=== PATIENT | female | born 1945 | race Caucasian/White ===

== ENCOUNTER → 2016-04-15 | Outpatient (CLI) | payer OTHER ==
[~2016-04-15] MED LIST: ASPCH81X PO; BUPR-79 PO; CETI10TA84 PO; CITA40TA12 PO; DOCU100C31 PO; FURO40TA3 PO; HYDR50CA2 PO; IBUP-1449 PO; INSU1INJ2 SQ; INSUINJ12 SC; LPT/40 PO; METF1000 PO; PANT1TAB48 PO; POTA-327 PO; ZNTT/150 PO
[2016-04-15 12:24] LABS: BASO % 0.6 %; BASO ABS # 0.04 K/uL (0-0.2); COMPLETE YES; HEMATOCRIT 40.7 % (37-47); IG% 0.3 %; LYMPH % 38.4 %; LYMPH ABS # 2.75 K/uL (1.2-3.4); MEAN CELL VOLUME 86.4 fL (80-100); MEAN CORPUSCULAR HEMOGLOBIN 28.9 pg (25-34); MEAN CORPUSCULAR HGB CONC 33.4 g/dl (32-36); MEAN PLATELET VOLUME 9.7 fL (7.4-10.4); MONO % 4.6 %; NEUT % 54.1 %; PLATELET COUNT 271 K/uL (130-400); RED BLOOD COUNT 4.71 M/uL (4.2-5.4); WHITE BLOOD COUNT 7.16 K/uL (4.8-10.8)
[2016-04-15 12:40] LABS: ALT/SGPT 28 U/L (12-78); AST/SGOT 16 U/L (15-37); BLOOD UREA NITROGEN 16 mg/dl (7-18); BUN/CREATININE RATIO 17.5 (10-20); CALCIUM 9.8 mg/dl (8.5-10.1); CARBON DIOXIDE 27 mmol/L (21-32); CHLORIDE 105 mmol/L (98-107); CHOLESTEROL 131 mg/dl (0-200); CREATININE 0.92 mg/dl (0.60-1.20); GLUCOSE 108 mg/dl (70-99); POTASSIUM 4.1 mmol/L (3.5-5.1); SODIUM 141 mmol/L (136-145); TRIGLYCERIDES 166 mg/dl (0-150); VERY LOW DENSITY LIPOPROT CALC 33 mg/dl
[2016-04-15 12:42] LABS: ALB/GLOB RATIO 1.1 (0.9-2); ALKALINE PHOSPHATASE 70 U/L (45-117); CHOLESTEROL/HDL RATIO 2.7; HDL CHOLESTEROL 48 mg/dl; LDL CHOLESTEROL CALCULATED 50 mg/dl
[2016-04-15 13:04] LABS: RATIO 10.3 mcg/mg (0-30.0)
[2016-04-15 13:11] LABS: ESTIMATED AVERAGE GLUCOSE 140 mg/dl; HA1C FLAG Normal (Normal)
== END | disposition home or self-care (01) ==
LOC: C.LABBFT 10:24
PROVIDERS: ATTEND Physician Assistant
DX: Z51.81 Encounter for therapeutic drug level monitoring (principal); Z79.899 Other long term (current) drug therapy; E11.39 Type 2 diabetes mellitus with other diabetic ophthalmic complication; E11.49 Type 2 diabetes mellitus with other diabetic neurological complication

== ENCOUNTER → 2016-08-19 | Outpatient (CLI) | payer OTHER ==
[2016-08-19 12:42] LABS: BLOOD UREA NITROGEN 21 mg/dl (7-18); BUN/CREATININE RATIO 22.2 (10-20); CARBON DIOXIDE 26 mmol/L (21-32); CHLORIDE 109 mmol/L (98-107); CREATININE 0.95 mg/dl (0.60-1.20); GLUCOSE 144 mg/dl (70-99); POTASSIUM 3.9 mmol/L (3.5-5.1); SODIUM 144 mmol/L (136-145)
[2016-08-19 12:43] LABS: URINE APPEARANCE CLEAR (CLEAR); URINE BILIRUBIN NEG (NEG); URINE COLOR YELLOW; URINE EPITHELIAL CELL AUTO >30 /lpf (0-5); URINE NITRITE NEG (NEG); UROBILINOGEN NEG (NEG); ZZUR CULT IF INDIC CLEAN CATCH NO
[2016-08-19 12:43] LABS: CALCIUM 9.5 mg/dl (8.5-10.1)
[2016-08-19 12:52] LABS: MANUAL MICROSCOPIC REQUIRED? NO; REVIEW REQ? NO
[2016-08-19 13:13] LABS: ESTIMATED AVERAGE GLUCOSE 148 mg/dl; HA1C FLAG Normal (Normal)
== END ==
LOC: C.LABBFT 10:07
PROVIDERS: ATTEND Nurse Practitioner
DX: R30.0 Dysuria (principal); E11.49 Type 2 diabetes mellitus with other diabetic neurological complication

== ENCOUNTER → 2016-12-24 | Outpatient (CLI) | payer OTHER ==
[2016-12-24 12:19] LABS: BASO % 0.9 %; BASO ABS # 0.07 K/uL (0-0.2); COMPLETE YES; EOS % 1.6 %; HEMATOCRIT 41.5 % (37-47); IG% 0.1 %; LYMPH % 30.8 %; LYMPH ABS # 2.27 K/uL (1.2-3.4); MEAN CELL VOLUME 86.1 fL (80-100); MEAN CORPUSCULAR HEMOGLOBIN 28.6 pg (25-34); MEAN CORPUSCULAR HGB CONC 33.3 g/dl (32-36); MONO % 5.8 %; NEUT % 60.8 %; PLATELET COUNT 251 K/uL (130-400); RED BLOOD COUNT 4.82 M/uL (4.2-5.4); WHITE BLOOD COUNT 7.37 K/uL (4.8-10.8)
[2016-12-24 12:36] LABS: ALT/SGPT 22 U/L (12-78); AST/SGOT 17 U/L (15-37); BLOOD UREA NITROGEN 15 mg/dl (7-18); BUN/CREATININE RATIO 16.2 (10-20); CALCIUM 9.8 mg/dl (8.5-10.1); CARBON DIOXIDE 28 mmol/L (21-32); CHLORIDE 108 mmol/L (98-107); CHOLESTEROL 134 mg/dl (0-200); CREATININE 0.92 mg/dl (0.60-1.20); GLUCOSE 153 mg/dl (70-99); POTASSIUM 4.3 mmol/L (3.5-5.1); SODIUM 140 mmol/L (136-145); TRIGLYCERIDES 166 mg/dl (0-150); VERY LOW DENSITY LIPOPROT CALC 33 mg/dl
[2016-12-24 12:46] LABS: ALKALINE PHOSPHATASE 75 U/L (45-117); CHOLESTEROL/HDL RATIO 2.9; HDL CHOLESTEROL 46 mg/dl; LDL CHOLESTEROL CALCULATED 55 mg/dl
[2016-12-24 12:49] LABS: ESTIMATED AVERAGE GLUCOSE 131 mg/dl; HA1C FLAG Normal (Normal)
== END | disposition home or self-care (01) ==
LOC: C.LABBFT 08:59
PROVIDERS: ATTEND Nurse Practitioner
DX: Z51.81 Encounter for therapeutic drug level monitoring (principal); Z79.899 Other long term (current) drug therapy; Z11.59 Encounter for screening for other viral diseases; E11.49 Type 2 diabetes mellitus with other diabetic neurological complication; R30.0 Dysuria

== ENCOUNTER → 2017-02-20 | Outpatient (CLI) | payer OTHER ==
[~2017-02-20] MED LIST changes: +PANT1TAB3 PO; -PANT1TAB48 PO
--- NOTE | 2017-02-20 12:55 | MAMMOGRAPHY REPORT ---
BILATERAL DIGITAL SCREENING MAMMOGRAM WITH CAD: 02/20/2017 CLINICAL HISTORY: Routine screening. Patient has no complaints. TECHNIQUE: Current study was also evaluated with a Computer Aided Detection (CAD) system. Bilateral CC and MLO views were obtained. COMPARISON: Comparison is made to exams dated: 01/22/2016 mammogram, 01/18/2015 mammogram, 4 mammogram, 12/27/2012 mammogram, 06/29/2012 mammogram, and 12/30/2011 mammogram - [facility]. BREAST COMPOSITION: There are scattered areas of fibroglandular density in both breasts. FINDINGS: No suspicious masses, calcifications, or areas of architectural distortion are noted in ei ther breast. There has been no significant interval change compared to prior exams. Bilateral benign -appearing calcifications are not significantly changed. IMPRESSION: ACR BI-RADS CATEGORY 2: BENIGN There is no mammographic evidence of malignancy. A 1 year screening mammogram is recommended. The pa tient will receive written notification of the results. Approximately 10% of breast cancers are not detected with mammography. A negative mammographic report should not delay biopsy if a clinically suggestive mass is present. Arely Moore M.D. /:02/20/2017 12:27:44 Citizenship Teacher: Mireya CARBALLO(Eddie)(Jani)(BD), [facility] letter sent: Normal 1/2 BI-RADS Code: ACR BI-RADS Category 2: Benign
== END | disposition home or self-care (01) ==
LOC: C.MAMM 10:28
PROVIDERS: ATTEND Nurse Practitioner
DX: Z12.31 Encounter for screening mammogram for malignant neoplasm of breast (principal)

== ENCOUNTER → 2017-04-06 | Outpatient (CLI) | payer OTHER ==
[2017-04-06 12:27] LABS: HEMOGLOBIN A1C 6.7 % (4.5-5.6)
[2017-04-06 12:44] LABS: ALBUMIN 3.5 gm/dl (3.4-5.0); ALT/SGPT 22 U/L (12-78); BLOOD UREA NITROGEN 17 mg/dl (7-18); CALCIUM 9.6 mg/dl (8.5-10.1); CARBON DIOXIDE 26 mmol/L (21-32); CHOLESTEROL 172 mg/dl (0-200); CREATININE 1.08 mg/dl (0.60-1.20); GLUCOSE 162 mg/dl (70-99); POTASSIUM 4.2 mmol/L (3.5-5.1); SODIUM 138 mmol/L (136-145)
[2017-04-06 12:46] LABS: ALKALINE PHOSPHATASE 78 U/L (45-117); AST/SGOT 14 U/L (15-37); LDL CHOLESTEROL CALCULATED 87 mg/dl; TOTAL PROTEIN 7.2 gm/dl (6.4-8.2)
== END | disposition home or self-care (01) ==
LOC: C.LABBFT 09:35
PROVIDERS: ATTEND Nurse Practitioner
DX: Z00.00 Encounter for general adult medical examination without abnormal findings (principal); E55.9 Vitamin D deficiency, unspecified; E11.49 Type 2 diabetes mellitus with other diabetic neurological complication

== ENCOUNTER 2018-07-28 15:40 | Inpatient (IN) ==
[2018-07-28] MEDS ORDERED: ONDANSETRON INJ 2 MG/ML 2 ML VIAL IV STA (15:54)
[2018-07-28] MEDS ORDERED: SODIUM CHLORIDE 0.9% 1000ML 1,000 ML IV SCH (16:00)
[2018-07-28 16:13] LABS: Appearance Urine Cloudy (Clear); Bacteria Urine Automated 2+ (Negative); Bilirubin Urine Negative (Negative); Blood Urine Negative (Negative); Color Urine Yellow; Glucose Urine UA Negative (Negative); Ketones Urine Trace (Negative); Leukocyte Esterase Urine 2+ (Negative); Nitrite Urine Positive (Negative); Protein Urine Negative (Negative); RBC Urine Automated 0-4 /hpf (0-4); Specific Gravity Urine 1.015 (1.000-1.030); Urobilinogen Urine Negative (Negative); pH Urine >= 9.0 (4.5-7.5)
[2018-07-28 16:21] LABS: Basophils # (auto) 0.03 K/uL (0-0.2); Basophils % (auto) 0.4 %; Eosinophils # (auto) 0.18 K/uL (0-0.5); Eosinophils % (auto) 2.4 %; Hematocrit (blood only) 39.5 % (37-47); Hemoglobin 13.7 g/dL (12.0-16.0); Immature Granulocytes # (auto) 0.01 K/uL (0.00-0.02); Immature Granulocytes % (auto) 0.1 %; Lymphocytes % (auto) 27.9 %; Mean Corpuscular Hgb Conc 34.7 g/dL (32-36); Mean Corpuscular Volume 86.1 fL (80-100); Monocytes # (auto) 0.36 K/uL (0.11-0.59); Monocytes % (auto) 4.8 %; Neutrophils # (auto) 4.84 K/uL (1.4-6.5); Neutrophils % (auto) 64.4 %; Platelet Count 265 K/uL (130-400); RDW Coefficient of Variation 14.4 % (11.5-14.5); Red Blood Count 4.59 M/uL (4.2-5.4); White Blood Count 7.52 K/uL (4.8-10.8)
--- NOTE | 2018-07-28 16:25 | Emergency Department Note ---
Entered by Nuyrs Mary acting as a scribe for Juan Guillaume DO History of Present Illness General Chief complaint: Urinary Symptoms Source: patient History of Present Illness Onset (ago): day(s) (several ) Location: abdomen (right-sided) Pain Consistency: + other (persistent ) Associated symptoms: + fever/chills, + nausea/vomiting (positive nausea; negative vomiting) and + other (positive leg redness) Treatments prior to arrival: none The patient is a 73 year old female who presents to the Emergency Room with complaints of persistent right-sided abdominal pain that began several days prior to arrival. The patient states that she was supposed to get a colonoscopy today because of her recent rectal pain, but states that this was not performed because she "didn't feel well". The patient states that she has a fever, chills, and nausea. She states that her legs are more red than usual. The patient denies treatments prior to arrival. Home Medications Home Medications Medication Instructions Recorded Confirmed Type albuterol sulfate [ProAir HFA] 2 puff INHALATION Q6H PRN 07/16/18 07/28/18 History aspirin 81 mg PO QAM 07/16/18 07/28/18 History atorvastatin 40 mg PO HS 07/16/18 07/28/18 History bupropion HCl 200 mg PO BID 07/16/18 07/28/18 History cetirizine 10 mg PO QAM 07/16/18 07/28/18 History cyanocobalamin (vitamin B-12) 1,000 mcg PO QAM 07/16/18 07/28/18 History [Vitamin B-12] docusate sodium 100 mg PO QAM 07/16/18 07/28/18 History ergocalciferol (vitamin D2) 50,000 unit PO WK 07/16/18 07/28/18 History furosemide 40 mg PO QAM 07/16/18 07/28/18 History ibuprofen 200 mg PO Q6H PRN 07/16/18 07/28/18 History insulin aspart U-100 [Novolog 40 unit SUBCUT BIDM 07/16/18 07/28/18 History U-100 Insulin aspart] insulin degludec [Tresiba 76 unit SUBCUT QAM 07/16/18 07/28/18 History FlexTouch U-200] meclizine 25 mg PO TID 07/16/18 07/28/18 History metformin 1,000 mg PO BID 07/16/18 07/28/18 History multivitamin 1 tab PO QAM 07/16/18 07/28/18 History ondansetron HCl 4 mg PO Q6 PRN 07/16/18 07/28/18 History ranitidine HCl 150 mg PO BID 07/16/18 07/28/18 History topiramate 200 mg PO BID 07/16/18 07/28/18 History trazodone 200 mg PO HS 07/16/18 07/28/18 History trospium 20 mg PO BID 07/16/18 07/28/18 History methenamine hippurate 1 gram tablet 1 g PO DAILY #30 tab 07/22/18 07/28/18 History potassium chloride ER 10 mEq 10 meq PO DAILY #90 tab 07/22/18 07/28/18 History tablet,extended release Allergies Allergy/AdvReac Type Severity Reaction Status Date / Time No Known Allergies Allergy Verified 07/28/18 17:39 Past Med/Surg History Medical History Allergic rhinitis (Acute) Constipation (Acute) Diabetes mellitus type 2, uncontrolled (Acute) Dyslipidemia (Acute) Gastroparesis (Acute) Hypertension (Acute) Impairment of cognitive function (Acute) Irritable bowel syndrome (Acute) Low back pain (Acute) Macular degeneration (Acute) Mild persistent asthma (Acute) Morbid obesity (Acute) Multiple thyroid nodules (Acute) Pre-ulcerative calluses (Acute) Sleep apnea (Acute) Urge incontinence of urine (Acute) Urinary frequency (Acute) Vaginal atrophy (Acute) Venous stasis (Acute) Diabetic peripheral neuropathy associated with type 2 diabetes mellitus Abdominal pressure Anxiety Depression Diabetes mellitus, type 2 GERD (gastroesophageal reflux disease) Hyperlipidemia Migraine Surgical History History of cholecystectomy History of colonoscopy History of tonsillectomy History of tooth extraction all teeth History of total hysterectomy with bilateral salpingo-oophorectomy (BSO) Family History Daughter Family history of reaction to anesthesia vomiting Brother Family history of diabetes mellitus Sister Family history of diabetes mellitus Mother Family history of diabetes mellitus Grandmother (Maternal) Family history of diabetes mellitus Social History Preferred Language: [place]se Communication Ability: Effective Photo Print Specialist Required: No Beliefs That Will Affect Care: None Current Living Situation: Spouse and Family Current Living Situation Comment: at home with and daughter Other Information That Helps Us Care for You: No Feels Safe at Home: Yes Safety Concerns: Feels Safe At This Time Smoking Status: Former smoker Second Hand Exposure: No Hx Alcohol Use: No Hx Substance Use: No Review of Systems See HPI for pertinent positives & negatives. and A total of 10 systems reviewed and were otherwise negative Physical Exam Vital Signs Vital Signs - 24 hr 07/28/18 15:53 07/28/18 16:54 07/28/18 18:49 Temperature 36.8 C Temperature Source Oral Sepsis Recent Fever Within 48 Hours No Sepsis Action Taken by Nursing No Action Required Pulse Rate 81 Pulse Rate [Right Finger] 78 76 Respiratory Rate 17 17 17 Respiratory Effort / Characteristics Non-Labored Spontaneous Non-Labored Spontaneous Respiratory Depth Normal Normal Respiratory Pattern Regular Regular Blood Pressure 160/66 H Blood Pressure [Right Arm] 141/62 H 142/64 H Blood Pressure Mean 97 Blood Pressure Mean [Right Arm] 88 90 Pulse Oximetry 94 96 96 Oxygen Delivery Method Room Air Room Air Room Air GENERAL: Patient is awake alert in no acute distress patient is resting comfortably and showing no signs of anxiety EYES: The conjunctivae are clear. The pupils are round and reactive. EARS, NOSE, MOUTH AND THROAT: The nose is without any evidence of any deformity. Mucous membranes are moist tongue is midline NECK: The neck is nontender and supple. RESPIRATORY: Normal respiratory effort is noted there is no evidence of wheezing rhonchi or rales CARDIOVASCULAR: Regular rate and rhythm noted there no murmurs rubs or gallops normal S1 normal S2 GASTROINTESTINAL: Abdomen was soft and nondistended. There is right lower quadrant tenderness to palpation. There is no guarding or rigidity noted. BACK: Right CVA tenderness was noted to percussion. There is no midline tenderness noted. Range of motion appears intact. MUSCULOSKELETAL/EXTREMITIES: There is no evidence of gross deformity full range of motion is noted in the hips and shoulders SKIN: There is no obvious evidence of any rash. There are no petechiae, pallor or cyanosis noted. NEUROLOGIC: Patient is awake alert and oriented x3 strength is symmetric patellar reflexes are 2+ bilaterally Course 1553: The patient was evaluated in room B9, and a complete history and physical examination were performed. 1818: I discussed the case with Dr. [facility] Hospitalist who accepts the patient for further evaluation. Administered Medications Acetaminophen (Tylenol) 650 mg PO Q4H PRN PRN Reason: pain/fever Stop: 08/27/18 20:56 Last Admin: 07/28/18 21:51 Dose: 650 mg Documented by: [id number] Atorvastatin Calcium (Lipitor) 40 mg PO HS CRISSY Stop: 08/27/18 20:59 Last Admin: 07/28/18 21:52 Dose: 40 mg Documented by: [id number] Bupropion HCl (Wellbutrin-Sr) 200 mg PO BID CRISSY Stop: 08/27/18 20:59 Last Admin: 07/29/18 08:05 Dose: 200 mg Documented by: [id number] Admin: 07/28/18 21:52 Dose: 200 mg Documented by: [id number] Cetirizine HCl (Zyrtec) 10 mg PO QAM CRISSY Stop: 08/28/18 08:59 Last Admin: 07/29/18 08:58 Dose: 10 mg Documented by: [id number] Lactated Ringer's (Lr) 1,000 mls @ 80 mls/hr IV .[id number] CRISSY Stop: 07/29/18 21:56 Last Infusion: 07/29/18 02:30 Dose: 80 mls/hr Documented by: [id number] Infusion: 07/28/18 22:29 Dose: 0 mls/hr Documented by: [id number] Admin: 07/28/18 21:20 Dose: 80 mls/hr Documented by: [id number] Doxycycline Hyclate 100 mg/ (Dextrose) 110 mls @ 50 mls/hr IV Q12 CRISSY Stop: 08/07/18 20:59 Last Admin: 07/29/18 08:06 Dose: 50 mls/hr Documented by: [id number] Infusion: 07/29/18 02:30 Dose: 0 mls/hr Documented by: [id number] Admin: 07/28/18 23:58 Dose: 50 mls/hr Documented by: [id number] Insulin Aspart (Novolog Flexpen) 0 units SC Q6H CRISSY Stop: 08/27/18 20:59 Last Admin: 07/29/18 07:58 Dose: Not Given Documented by: [id number] Cosigned by: [id number] Admin: 07/29/18 03:24 Dose: Not Given Documented by: [id number] Cosigned by: [id number] Admin: 07/28/18 21:47 Dose: Not Given Documented by: [id number] Cosigned by: [id number] Methenamine Hippurate (Urex) 1 gm PO DAILY CRISSY Stop: 08/03/18 08:59 Last Admin: 07/29/18 08:05 Dose: 1 gm Documented by: [id number] Miscellaneous (Order Awaiting Action) 1 ea N/A QS CRISSY Stop: 08/28/18 00:00 Last Admin: 07/29/18 07:19 Dose: Not Given Documented by: [id number] Admin: 07/29/18 00:42 Dose: Not Given Documented by: [id number] Ranitidine HCl (Zantac) 150 mg PO BID CRISSY Stop: 08/27/18 20:59 Last Admin: 07/29/18 08:05 Dose: 150 mg Documented by: [id number] Admin: 07/28/18 21:52 Dose: 150 mg Documented by: [id number] Sodium Biphosphate/Sodium Phosphate (Fleet Enema) 132 ml OK DAILY CRISSY Stop: 08/28/18 07:59 Last Admin: 07/29/18 08:17 Dose: Not Given Documented by: [id number] Admin: 07/29/18 08:06 Dose: 132 ml Documented by: [id number] Topiramate (Topamax) 200 mg PO BID CRISSY Stop: 08/27/18 20:59 Last Admin: 07/29/18 08:06 Dose: 200 mg Documented by: [id number] Admin: 07/28/18 21:53 Dose: 200 mg Documented by: [id number] Trazodone HCl (Desyrel) 200 mg PO HS CRISSY Stop: 08/27/18 20:59 Last Admin: 07/28/18 21:52 Dose: 200 mg Documented by: [id number] Discontinued Medications Sodium Chloride (Nss 1000ml) 1,000 mls @ 999 mls/hr IV .Q1H1M CRISSY Stop: 07/28/18 17:00 Last Infusion: 07/28/18 17:22 Dose: 0 mls/hr Documented by: [id number] Admin: 07/28/18 16:17 Dose: 999 mls/hr Documented by: [id number] Ceftriaxone Sodium (Rocephin) 1,000 mg in 50 mls @ 100 mls/hr IV NOW STA Stop: 07/28/18 17:34 Last Infusion: 07/28/18 18:07 Dose: 0 mls/hr Documented by: [id number] Admin: 07/28/18 17:26 Dose: 100 mls/hr Documented by: [id number] Magnesium Sulfate/Dextrose (Magnesium Sulfate / D5w) 1 gm in 100 mls @ 100 mls/hr IV ONE ONE Stop: 07/28/18 21:02 Last Infusion: 07/29/18 00:01 Dose: 0 mls/hr Documented by: [id number] Admin: 07/28/18 22:24 Dose: 100 mls/hr Documented by: [id number] Potassium Chloride (K Jarred / Wtr) 10 meq in 100 mls @ 100 mls/hr IV Q1H CRISSY Stop: 07/28/18 23:56 Last Infusion: 07/29/18 01:00 Dose: 0 mls/hr Documented by: [id number] Admin: 07/28/18 23:46 Dose: 100 mls/hr Documented by: [id number] Infusion: 07/28/18 23:42 Dose: 100 mls/hr Documented by: [id number] Admin: 07/28/18 22:42 Dose: 100 mls/hr Documented by: [id number] Infusion: 07/28/18 22:42 Dose: 100 mls/hr Documented by: [id number] Admin: 07/28/18 21:47 Dose: 100 mls/hr Documented by: [id number] Morphine Sulfate (Morphine Sulfate) 1 mg IV NOW STA Stop: 07/28/18 23:43 Last Admin: 07/29/18 00:17 Dose: 1 mg Documented by: [id number] Ondansetron HCl (Zofran) 4 mg IV NOW STA Stop: 07/28/18 15:55 Last Admin: 07/28/18 16:17 Dose: 4 mg Documented by: [id number] Medical Decision Making Differential Diagnosis Differential diagnosis: Etiologies such as appendicitis, diverticulitis, PUD, biliary pathology, UTI, pancreatitis, obstruction, mesenteric ischemia, aortic pathology, infections, inflammatory bowel disease, renal colic, as well as others were entertained. Medical Records Attestation: I reviewed the patient's medical records. Home Medications Current Medication List: was personally reviewed by me Laboratory Data Attestation: I reviewed the patient's lab results. Result diagrams: 07/29/18 08:24 07/29/18 08:24 Lab Results 07/28/18 07/28/18 07/28/18 Range/Units 15:47 16:04 16:04 WBC 7.52 (4.8-10.8) K/uL RBC 4.59 (4.2-5.4) M/uL Hgb 13.7 (12.0-16.0) g/dL Hct 39.5 (37-47) % MCV 86.1 (80-100) fL MCH 29.8 (25-34) pg MCHC 34.7 (32-36) g/dL RDW Std Deviation 45.0 (36.4-46.3) fL RDW Coeff of Misha 14.4 (11.5-14.5) % Plt Count 265 (130-400) K/uL MPV 9.0 (7.4-10.4) fL Immature Gran % (Auto) 0.1 % Neut % (Auto) 64.4 % Lymph % (Auto) 27.9 % [place] % (Auto) 4.8 % Eos % (Auto) 2.4 % Baso % (Auto) 0.4 % Immature Gran # (Auto) 0.01 (0.00-0.02) K/uL Neut # (Auto) 4.84 (1.4-6.5) K/uL Lymph # (Auto) 2.10 (1.2-3.4) K/uL [place] # (Auto) 0.36 (0.11-0.59) K/uL Eos # (Auto) 0.18 (0-0.5) K/uL Baso # (Auto) 0.03 (0-0.2) K/uL APTT 25.5 (21.0-31.0) Seconds PTT Ratio 0.9 Sodium (136-145) mmol/L Potassium (3.5-5.1) mmol/L Chloride (98-107) mmol/L Carbon Dioxide (21-32) mmol/L Anion Gap (3-11) BUN (7-18) mg/dl Creatinine (0.6-1.2) mg/dl Est Cr Clr Drug Dosing ml/min Est GFR ( Amer) Est GFR (Non-Af Amer) BUN/Creatinine Ratio (10-20) Glucose (70-99) mg/dl Calcium (8.5-10.1) mg/dl Total Bilirubin (0.2-1) mg/dl AST (15-37) U/L ALT (12-78) U/L Alkaline Phosphatase (45-117) U/L Troponin I (0-0.045) ng/ml Total Protein (6.4-8.2) gm/dl Albumin (3.4-5.0) gm/dl Globulin (2.5-4.0) gm/dl Albumin/Globulin Ratio (0.9-2) Lipase (73-393) U/L Urine Color Yellow Urine Appearance Cloudy A (Clear) Urine pH >= 9.0 H (4.5-7.5) Ur Specific Elizabeth 1.015 (1.000-1.030) Urine Protein Negative (Negative) Urine Glucose (UA) Negative (Negative) Urine Ketones Trace H (Negative) Urine Blood Negative (Negative) Urine Nitrite Positive A (Negative) Urine Bilirubin Negative (Negative) Urine Urobilinogen Negative (Negative) Ur Leukocyte Esterase 2+ H (Negative) Urine WBC (Auto) 10-30 H (0-5) /hpf Urine RBC (Auto) 0-4 (0-4) /hpf U Hyaline Cast (Auto) 1-5 (0-5) /lpf U Epithel Cells (Auto) 5-10 H (0-5) /lpf Urine Bacteria (Auto) 2+ H (Negative) 07/28/18 Range/Units 16:04 WBC (4.8-10.8) K/uL RBC (4.2-5.4) M/uL Hgb (12.0-16.0) g/dL Hct (37-47) % MCV (80-100) fL MCH (25-34) pg MCHC (32-36) g/dL RDW Std Deviation (36.4-46.3) fL RDW Coeff of Misha (11.5-14.5) % Plt Count (130-400) K/uL MPV (7.4-10.4) fL Immature Gran % (Auto) % Neut % (Auto) % Lymph % (Auto) % [place] % (Auto) % Eos % (Auto) % Baso % (Auto) % Immature Gran # (Auto) (0.00-0.02) K/uL Neut # (Auto) (1.4-6.5) K/uL Lymph # (Auto) (1.2-3.4) K/uL [place] # (Auto) (0.11-0.59) K/uL Eos # (Auto) (0-0.5) K/uL Baso # (Auto) (0-0.2) K/uL APTT (21.0-31.0) Seconds PTT Ratio Sodium 143 (136-145) mmol/L Potassium 3.2 L (3.5-5.1) mmol/L Chloride 110 H (98-107) mmol/L Carbon Dioxide 26 (21-32) mmol/L Anion Gap 8.0 (3-11) BUN 11 (7-18) mg/dl Creatinine 0.77 (0.6-1.2) mg/dl Est Cr Clr Drug Dosing 73.1 ml/min Est GFR ( Amer) 90.0 Est GFR (Non-Af Amer) 77.7 BUN/Creatinine Ratio 13.7 (10-20) Glucose 103 H (70-99) mg/dl Calcium 9.1 (8.5-10.1) mg/dl Total Bilirubin 0.5 (0.2-1) mg/dl AST 27 (15-37) U/L ALT 36 (12-78) U/L Alkaline Phosphatase 81 (45-117) U/L Troponin I < 0.015 (0-0.045) ng/ml Total Protein 7.2 (6.4-8.2) gm/dl Albumin 3.5 (3.4-5.0) gm/dl Globulin 3.7 (2.5-4.0) gm/dl Albumin/Globulin Ratio 1.0 (0.9-2) Lipase 40 L (73-393) U/L Urine Color Urine Appearance (Clear) Urine pH (4.5-7.5) Ur Specific Elizabeth (1.000-1.030) Urine Protein (Negative) Urine Glucose (UA) (Negative) Urine Ketones (Negative) Urine Blood (Negative) Urine Nitrite (Negative) Urine Bilirubin (Negative) Urine Urobilinogen (Negative) Ur Leukocyte Esterase (Negative) Urine WBC (Auto) (0-5) /hpf Urine RBC (Auto) (0-4) /hpf U Hyaline Cast (Auto) (0-5) /lpf U Epithel Cells (Auto) (0-5) /lpf Urine Bacteria (Auto) (Negative) Imaging Data Radiologist's Impression: Radiology results as stated below per my review and the radiologist's interpretation: XR chest 1V portable CLINICAL HISTORY: Pain, radiating to the abdomen. COMPARISON STUDY: 12/12/2015 FINDINGS: The cardiac and mediastinal contours are normal. There is no evidence of focal pulmonary consolidation. There is no evidence of failure. No pleural effusions are visualized.[ There is no free intraperitoneal air. IMPRESSION: No active disease in the chest. Electronically signed by: Rayo Mccann M.D. 07/28/2018 5:[address] abd pelvis wo con CLINICAL HISTORY: 73 years-old Female presenting with flank pain. TECHNIQUE: Multidetector CT of the abdomen and pelvis was performed without the use of intravenous contrast. IV contrast: None. One or more dose lowering techniques were used consistent with the principles of ALARA (as low as reasonably achievable), including automatic exposure control, mA or kV adjustment to individual patient size, and/or use of iterative reconstruction. COMPARISON: 12/12/2015. CT DOSE (mGy.cm): The estimated cumulative dose is 1152.45 mGycm. FINDINGS: Receptionist Doctor'S Office topogram: Unremarkable. Lung bases: Normal heart size. No pericardial or pleural effusion. No focal infiltrate or nodule at the lung bases. Liver: Micronodular contour of the liver with relative hypertrophy of the caudate lobe may suggest underlying fibrosis/cirrhosis. Normal liver density. Biliary: Mild biliary ductal prominence likely a reservoir effect in the post cholecystectomy state. Gallbladder surgically absent. Pancreas: Moderate parenchymal atrophy. Spleen: Normal noncontrast appearance. Adrenal glands: Normal noncontrast appearance. Kidneys and ureters: Normal noncontrast appearance. No nephrolithiasis. No hydronephrosis. Normal ureters. Bladder: Circumferential bladder wall thickening. Pelvic organs: Uterus surgically absent. Gas noted in the vagina. Bowel: The rectum either contains fluid or there is underlying rectal wall thickening. No perirectal inflammatory change. The appendix is normal. No bowel obstruction. Peritoneal cavity: No free fluid or intraperitoneal gas. Lymph nodes: No gross lymphadenopathy allowing for noncontrast technique. The site of a prior suspected. Duodenal lymph node is now less well-defined with vague infiltrative change though fairly similar to prior exam (series 3 image 158). Vasculature: Atherosclerosis of the normal caliber abdominal aorta. Abdominal wall: Extensive infiltration and skin thickening in the anterior abdominal wall bilaterally. Musculoskeletal: Degenerative changes of the spine. IMPRESSION: 1. Circumferential bladder wall thickening raises concern for cystitis likely infectious or inflammatory. Correlate with urinalysis. 2. Abnormal appearance of the rectum, which either contains fluid or has underlying rectal wall thickening. No other inflammatory change to suggest the diagnosis of proctitis. Correlate clinically. 3. Extensive skin thickening and subcutaneous infiltration in the anterior abdominal wall. This is noted bilaterally. Correlate clinically. This may relate to medication administration among other etiologies including cellulitis or an infiltrative disease. 4. Findings suggest the presence of underlying cirrhosis. Electronically signed by: Óscar Coats M.D. 07/28/2018 4:41 PM ECG Data Attestation: I personally reviewed and interpreted this ECG as follows: Indication: abdominal pain Rate (beats per minute): 78 Rhythm: normal sinus Findings: + RBBB; no ectopy Comparison ECG Date: from (05/28/2013) Change: no significant change Blood Pressure Blood Pressure Findings: Elevated blood pressure Blood Pressure Disposition: further management by hospitalist BRADEN Narrative The patient is a 73-year-old female who presented to the emergency department for an evaluation of abdominal pain and fever. The patient was scheduled for colonoscopy today for rectal pain as well as abdominal pain. While she was in preop she was noted to have a fever. The patient had right lower quadrant ten derness to palpation but no guarding. The patient's urinalysis appears to be consistent with urinary tract infection. The patient was treated with IV fluids as well as IV antibiotics in the emergency department. She was reevaluated multiple times. I discussed the patient's laboratory and radiographic studies with her. I also discussed her case with her primary national sales manager. At this time is very concerned about the patient's findings on CAT scan specifically the rectal findings. He is uncomfortable with the patient waiting any longer for colonoscopy. For this reason I discussed her case with the on- call [facility] hospitalist group. They will evaluate the patient in the emergency department for possible observation further IV antibiotics and IV fluids as well as colonoscopy in the morning. Impression & Plan Abdominal pain, Acute UTI, Proctitis Discharge Plan Visit Data *Final* Discharge Date/Time: 07/28/18 20:13 Chief Complaint: Urinary Symptoms ED Provider: Juan Guillaume Discharge Problem: Abdominal pain, Acute UTI, Proctitis Patient Disposition: Admitted As Inpatient Condition: Good Discharge Instructions Interventions: ED Discharge Assessment Last Done: 07/28/18 20:13 Discharge Problem: Abdominal pain Qualifiers: Abdominal location: generalized Qualified Code(s): R10.84 - Generalized abdominal pain The scribe's documentation has been prepared under my direction and personally reviewed by me in its entirety. I confirm that the note above accurately reflects all work, treatment, procedures, and medical decision making performed by me.
[2018-07-28 16:30] LABS: Partial Thromboplastin Ratio 0.9; Partial Thromboplastin Time 25.5 Seconds (21.0-31.0)
[2018-07-28 16:38] LABS: Alanine Aminotransferase 36 U/L (12-78); Albumin Level 3.5 gm/dl (3.4-5.0); Aspartate Aminotransferase 27 U/L (15-37); BUN Creatinine Ratio 13.7 (10-20); Blood Urea Nitrogen 11 mg/dl (7-18); Calcium 9.1 mg/dl (8.5-10.1); Carbon Dioxide 26 mmol/L (21-32); Chloride 110 mmol/L (98-107); Creatinine Clr Calc Pharmacy 73.1 ml/min; Est GFR (Non-African American) 77.7; Glucose 103 mg/dl (70-99); Potassium 3.2 mmol/L (3.5-5.1); Sodium 143 mmol/L (136-145)
[2018-07-28 16:42] LABS: Alkaline Phosphatase 81 U/L (45-117); Bilirubin,Total 0.5 mg/dl (0.2-1); Globulin 3.7 gm/dl (2.5-4.0); Total Protein 7.2 gm/dl (6.4-8.2); Troponin I < 0.015 ng/ml (0-0.045)
--- NOTE | 2018-07-28 16:43 | CT Scan Report ---
CT abd pelvis wo con CLINICAL HISTORY: 73 years-old Female presenting with flank pain. TECHNIQUE: Multidetector CT of the abdomen and pelvis was performed without the use of intravenous co ntrast. IV contrast: None. One or more dose lowering techniques were used consistent with the princip les of MICKY (as low as reasonably achievable), including automatic exposure control, mA or kV adjust ment to individual patient size, and/or use of iterative reconstruction. COMPARISON: 12/12/2015. CT DOSE (mGy.cm): The estimated cumulative dose is 1152.45 mGycm. 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 Lung bases: Normal heart size. No pericardial or pleural effusion. No focal infiltrate or nodule at t he lung bases. Liver: Micronodular contour of the liver with relative hypertrophy of the caudate lobe may suggest un derlying fibrosis/cirrhosis. Normal liver density. Biliary: Mild biliary ductal prominence likely a reservoir effect in the post cholecystectomy state. Gallbladder surgically absent. Pancreas: Moderate parenchymal atrophy. Spleen: Normal noncontrast appearance. Adrenal glands: Normal noncontrast appearance. Kidneys and ureters: Normal noncontrast appearance. No nephrolithiasis. No hydronephrosis. Normal ure ters. Bladder: Circumferential bladder wall thickening. Pelvic organs: Uterus surgically absent. Gas noted in the vagina. Bowel: The rectum either contains fluid or there is underlying rectal wall thickening. No perirectal inflammatory change. The appendix is normal. No bowel obstruction. Peritoneal cavity: No free fluid or intraperitoneal gas. Lymph nodes: No gross lymphadenopathy allowing for noncontrast technique. The site of a prior suspect ed. Duodenal lymph node is now less well-defined with vague infiltrative change though fairly similar to prior exam (series 3 image 158). Vasculature: Atherosclerosis of the normal caliber abdominal aorta. Abdominal wall: Extensive infiltration and skin thickening in the anterior abdominal wall bilaterally . Musculoskeletal: Degenerative changes of the spine. IMPRESSION: 1. Circumferential bladder wall thickening raises concern for cystitis likely infectious or inflamma tory. Correlate with urinalysis. 2. Abnormal appearance of the rectum, which either contains fluid or has underlying rectal wall thic kening. No other inflammatory change to suggest the diagnosis of proctitis. Correlate clinically. 3. Extensive skin thickening and subcutaneous infiltration in the anterior abdominal wall. This is n oted bilaterally. Correlate clinically. This may relate to medication administration among other etio logies including cellulitis or an infiltrative disease. 4. Findings suggest the presence of underlying cirrhosis. Electronically signed by: Óscar Coats M.D. 07/28/2018 4:41 PM
[2018-07-28] MEDS ORDERED: cefTRIAXone SODIUM 1,000 MG/50 ML BAG IV STA (17:05)
--- NOTE | 2018-07-28 17:34 | XRay Report ---
XR chest 1V portable CLINICAL HISTORY: Pain, radiating to the abdomen. COMPARISON STUDY: 12/12/2015 FINDINGS: The cardiac and mediastinal contours are normal. There is no evidence of focal pulmonary co nsolidation. There is no evidence of failure. No pleural effusions are visualized.[ There is no free intraperitoneal air. IMPRESSION: No active disease in the chest. Electronically signed by: Rayo Mccann M.D. 07/28/2018 5:33 PM
--- NOTE | 2018-07-28 19:55 | History & Physical Report ---
Date of Service July 28, 2018 Assessment & Plan (1) Cellulitis: 73 y/o F Hx HTN, HLD, DM, depression, mild dementia, BRANDY, chronic constipation and proctitis, obesity. The pt has been having rectal pain and was due for a colonoscopy. She arrived for the colonoscopy and apparently had a fever. She was then referred to the hospital fo evaluation and an overnight prep for the procedure. It does appear that she has developed some mild cellulitis on her LLE which is inflamed and painful to the touch. 1) Colonoscopy scheduled for AM due to persistent rectal pain per pt - she was already prepd the prior day so that we will keep her on clears and provide IVF overnight. She will receive a fleet AM by direction of the GI service. 2) Cellulitis of LLE - Doxy provided - can be DCd with if this is effective - area delineated. 3) Hypokalemia is present on labs - she will receive K and Mag 4) DM - placed on a SS 5) HTN, HLD - cont Lipitor - Lasix is held as she is receiveing IVF and is hypokalemic - primarily used for LE edema 6) Depression - cont Bupropion Full code - SCDs Total time for this admit including review of labs, meds, imaging, records - discussion with pt and GI attedning - 34 min Present on Admission?: Yes History of Present Illness Primary Care Provider: JOSEPH Valdes 73 y/o F Hx HTN, HLD, DM, depression, mild dementia, BRANDY, chornic constipation and proctitis, obesity. The pt has been having rectal pain and was due for a colonoscopy. She arrived for the colonoscopy and apparently had a fever. She was then referred to the hospital fo evaluation and an overnight prep for the procedure. It does appear that she has developed some mild cellulitis on her LLE which is inflamed and painful to the touch. PMH: 1) Procititis and chronic constipation 2) Depression 3) Mild dementia 4) Morbid obesity 5) DM II 6) HTN 7) HLD 8) Urge incontinence 9) IBS 10) Gastroparesis 11) Peripheral neuropathy Surgical: 1) Hysterectomy 2) Tonsillectomy Social: Quit smoking several years ago Does not drink Her daughter manages her medications and medical appointments Family: Mother due to ESRD Father following an AR Allergies Allergy/AdvReac Type Severity Reaction Status Date / Time No Known Allergies Allergy Verified 07/28/18 17:39 Home Medications Home Medications Medication Instructions Recorded Confirmed Type albuterol sulfate [ProAir HFA] 2 puff INHALATION Q6H PRN 07/16/18 07/28/18 History aspirin 81 mg PO QAM 07/16/18 07/28/18 History atorvastatin 40 mg PO HS 07/16/18 07/28/18 History bupropion HCl 200 mg PO BID 07/16/18 07/28/18 History cetirizine 10 mg PO QAM 07/16/18 07/28/18 History cyanocobalamin (vitamin B-12) 1,000 mcg PO QAM 07/16/18 07/28/18 History [Vitamin B-12] docusate sodium 100 mg PO QAM 07/16/18 07/28/18 History ergocalciferol (vitamin D2) 50,000 unit PO WK 07/16/18 07/28/18 History furosemide 40 mg PO QAM 07/16/18 07/28/18 History ibuprofen 200 mg PO Q6H PRN 07/16/18 07/28/18 History insulin aspart U-100 [Novolog 40 unit SUBCUT BIDM 07/16/18 07/28/18 History U-100 Insulin aspart] insulin degludec [Tresiba 76 unit SUBCUT QAM 07/16/18 07/28/18 History FlexTouch U-200] meclizine 25 mg PO TID 07/16/18 07/28/18 History metformin 1,000 mg PO BID 07/16/18 07/28/18 History multivitamin 1 tab PO QAM 07/16/18 07/28/18 History ondansetron HCl 4 mg PO Q6 PRN 07/16/18 07/28/18 History ranitidine HCl 150 mg PO BID 07/16/18 07/28/18 History topiramate 200 mg PO BID 07/16/18 07/28/18 History trazodone 200 mg PO HS 07/16/18 07/28/18 History trospium 20 mg PO BID 07/16/18 07/28/18 History methenamine hippurate 1 gram tablet 1 g PO DAILY #30 tab 07/22/18 07/28/18 History potassium chloride ER 10 mEq 10 meq PO DAILY #90 tab 07/22/18 07/28/18 History tablet,extended release Past Med/Surg History Medical History Allergic rhinitis (Acute) Constipation (Acute) Diabetes mellitus type 2, uncontrolled (Acute) Dyslipidemia (Acute) Gastroparesis (Acute) Hypertension (Acute) Impairment of cognitive function (Acute) Irritable bowel syndrome (Acute) Low back pain (Acute) Macular degeneration (Acute) Mild persistent asthma (Acute) Morbid obesity (Acute) Multiple thyroid nodules (Acute) Pre-ulcerative calluses (Acute) Sleep apnea (Acute) Urge incontinence of urine (Acute) Urinary frequency (Acute) Vaginal atrophy (Acute) Venous stasis (Acute) Diabetic peripheral neuropathy associated with type 2 diabetes mellitus Abdominal pressure Anxiety Depression Diabetes mellitus, type 2 GERD (gastroesophageal reflux disease) Hyperlipidemia Migraine Surgical History History of cholecystectomy History of colonoscopy History of tonsillectomy History of tooth extraction all teeth History of total hysterectomy with bilateral salpingo-oophorectomy (BSO) Family History Daughter Family history of reaction to anesthesia vomiting Brother Family history of diabetes mellitus Sister Family history of diabetes mellitus Mother Family history of diabetes mellitus Grandmother (Maternal) Family history of diabetes mellitus Social History Preferred Language: Kittitian Communication Ability: Effective Beliefs That Will Affect Care: None Current Living Situation: Spouse and Family Current Living Situation Comment: Lives with and daughter Feels Safe at Home: Yes Smoking Status: Former smoker Second Hand Exposure: No Hx Alcohol Use: No Hx Substance Use: No Review of Systems Review of Systems: Gen: Reported a fever this AM ENT: Denies congestion, throat pain, hearing loss Eyes: Denies acute visual changes CV: Denies CP, palpitations Pulmonary: Denies SOB, cough, wheezing GI: Persistent rectal pain Neuro: Denies acute or unilateral weakness, acute gait impairment, headache or acute visual changes Musculoskeletal: Denies joint pain, inflammation Endocrine: Denies polydipsia, polyuria Skin: Erythema, pain of LLE Physical Exam Physical Exam: General: Overweight and eccentric, elderly F, AAO x 2, no distress ENT: No erythema or exudates, no thrush Eyes: BARTOLO, EOMI Head and neck: Normocephalic, atraumatic, No JVD, neck is supple. Chest/heart: Nontender, S1,2, RRR, no murmurs, no gallops Lungs: CTAB, no wheezing or crackles Abdomen: Nontender, nondistended, BS+ Neuro: AAO x 2, speech is clear, no unilateral weakness or loss of sensation, coordination intact Musculoskeletal: No joint inflammation, muscle tenderness, FROM Skin: There is erythema and tenderness of the skin of the LLE above the ankle and to the mid ugarte Extremities: No clubbing, cyanosis, edema Results & Data Vital Signs (Past 12 Hours) Vital Signs Temp Pulse Pulse Resp BP BP Pulse Ox 07/28/18 18:49 76 17 142/64 H 96 07/28/18 16:54 78 17 141/62 H 96 07/28/18 15:53 98.2 F 81 17 160/66 H 94
[2018-07-28] MEDS ORDERED: MAGNESIUM SULFATE / D5W 1 GM/100 ML BAG IV ONE (20:03)
[2018-07-28] MEDS ORDERED: ALBUTEROL HFA 8 GM INHALER INH PRN (20:57)
[2018-07-28] MEDS: LACTATED RINGER'S 1,000 ML IV SCH (21:20)
[2018-07-28] MEDS: POTASSIUM CHLORIDE / WTR 10 MEQ/100 ML PLCT IV SCH ×3 (21:47→23:46)
[2018-07-28] MEDS: INSULIN ASPART 100 UNITS/ML 3 ML PEN SC SCH (21:47)
[2018-07-28] MEDS: ACETAMINOPHEN 325 MG TAB PO PRN (21:51)
[2018-07-28] MEDS: TRAZODONE HCL 100 MG TAB PO SCH (21:52)
[2018-07-28] MEDS: ATORVASTATIN 40 MG TAB PO SCH (21:52)
[2018-07-28] MEDS: BuPROPion SR 100 MG TABCR PO SCH (21:52)
[2018-07-28] MEDS: TOPIRAMATE 100 MG TAB PO SCH (21:53)
[2018-07-28] MEDS ORDERED: MoRPHine SULFATE 2 MG/ML CARP IV STA (23:42)
[2018-07-28] MEDS: DOXYCYCLINE HYCLATE 100 MG in DEXTROSE 5% 100 ML IV SCH (23:58)
[2018-07-29] MEDS: TROSPIUM ~ ORDER AWAITING ACTION SCH ×3 (00:42→16:33)
[2018-07-29] MEDS: INSULIN ASPART 100 UNITS/ML 3 ML PEN SC SCH ×5 (03:24→20:37)
[2018-07-29] MEDS: METHENAMINE HIPPURATE 1 GM TAB PO SCH (08:05)
[2018-07-29] MEDS: BuPROPion SR 100 MG TABCR PO SCH ×2 (08:05→20:36)
[2018-07-29] MEDS: TOPIRAMATE 100 MG TAB PO SCH ×2 (08:06→20:35)
[2018-07-29] MEDS: SOD PHOSPHATE/SOD BIPHOSPHATE ENEMA 132 ML BTL PR SCH ×2 (08:06→08:17)
[2018-07-29] MEDS: DOXYCYCLINE HYCLATE 100 MG in DEXTROSE 5% 100 ML IV SCH (08:06)
[2018-07-29 08:33] LABS: Basophils # (auto) 0.03 K/uL (0-0.2); Basophils % (auto) 0.4 %; Eosinophils # (auto) 0.16 K/uL (0-0.5); Eosinophils % (auto) 2.3 %; Hematocrit (blood only) 40.3 % (37-47); Hemoglobin 13.4 g/dL (12.0-16.0); Immature Granulocytes # (auto) 0.02 K/uL (0.00-0.02); Immature Granulocytes % (auto) 0.3 %; Lymphocytes # (auto) 1.63 K/uL (1.2-3.4); Lymphocytes % (auto) 23.5 %; Mean Corpuscular Hgb Conc 33.3 g/dL (32-36); Mean Platelet Volume 9.1 fL (7.4-10.4); Monocytes # (auto) 0.37 K/uL (0.11-0.59); Monocytes % (auto) 5.3 %; Neutrophils # (auto) 4.74 K/uL (1.4-6.5); Neutrophils % (auto) 68.2 %; Platelet Count 252 K/uL (130-400); RDW Coefficient of Variation 14.8 % (11.5-14.5); RDW Standard Deviation 47.4 fL (36.4-46.3); Red Blood Count 4.58 M/uL (4.2-5.4); White Blood Count 6.95 K/uL (4.8-10.8)
[2018-07-29] MEDS: CETIRIZINE HCL 10 MG TABLET PO SCH (08:58)
[2018-07-29 09:06] LABS: BUN Creatinine Ratio 9.5 (10-20); Calcium 8.7 mg/dl (8.5-10.1); Creatinine Clr Calc Pharmacy 72.2 ml/min; Est GFR (African American) 88.6; Est GFR (Non-African American) 76.5; Potassium 3.7 mmol/L (3.5-5.1)
--- NOTE | 2018-07-29 09:42 | Anesthesiology Consultation ---
Date of Service July 29, 2018 Assessment & Plan (1) Encounter for pre-operative examination: Chart Review Chart Review: Acceptable Risk for Surgery and Patient NOT seen in Pre Admission Testing Consults Requested none ASA ASA3 Proposed Anesthesia Anesthesia Type: MAC Risk / Benefits Reviewed With: PT / POA / Parent / Guardian, Accepts Plan and Informed Consent Obtained History Surgery Operation Date: 07/29/18 10:45 Proposed Procedures p Colonoscopy Dr. Jack Mata Case, DO Height/Weight Height: 5 ft 2 in Weight: 97.6 kg Allergies Allergy/AdvReac Type Severity Reaction Status Date / Time No Known Allergies Allergy Verified 07/28/18 17:39 Medications Home Medications Medication Instructions Recorded Confirmed Last Taken albuterol sulfate [ProAir HFA] 2 puff INHALATION Q6H PRN 07/16/18 07/28/18 07/27/18 aspirin 81 mg PO QAM 07/16/18 07/28/18 07/27/18 atorvastatin 40 mg PO HS 07/16/18 07/28/18 07/27/18 21:00 bupropion HCl 200 mg PO BID 07/16/18 07/28/18 07/27/18 21:00 cetirizine 10 mg PO QAM 07/16/18 07/28/18 07/27/18 cyanocobalamin (vitamin B-12) 1,000 mcg PO QAM 07/16/18 07/28/18 07/27/18 [Vitamin B-12] docusate sodium 100 mg PO QAM 07/16/18 07/28/18 07/27/18 ergocalciferol (vitamin D2) 50,000 unit PO WK 07/16/18 07/28/18 07/27/18 furosemide 40 mg PO QAM 07/16/18 07/28/18 07/27/18 ibuprofen 200 mg PO Q6H PRN 07/16/18 07/28/18 Unknown insulin aspart U-100 [Novolog 40 unit SUBCUT BIDM 07/16/18 07/28/18 07/27/18 17:00 U-100 Insulin aspart] insulin degludec [Tresiba 76 unit SUBCUT QAM 07/16/18 07/28/18 Unknown FlexTouch U-200] meclizine 25 mg PO TID 07/16/18 07/28/18 07/27/18 metformin 1,000 mg PO BID 07/16/18 07/28/18 07/27/18 multivitamin 1 tab PO QAM 07/16/18 07/28/18 07/27/18 ondansetron HCl 4 mg PO Q6 PRN 07/16/18 07/28/18 Unknown ranitidine HCl 150 mg PO BID 07/16/18 07/28/18 07/27/18 topiramate 200 mg PO BID 07/16/18 07/28/18 07/27/18 trazodone 200 mg PO HS 07/16/18 07/28/18 07/27/18 trospium 20 mg PO BID 07/16/18 07/28/18 07/27/18 methenamine hippurate 1 gram tablet 1 g PO DAILY #30 tab 07/22/18 07/28/18 07/27/18 potassium chloride ER 10 mEq 10 meq PO DAILY #90 tab 07/22/18 07/28/18 07/27/18 tablet,extended release Active Medications Generic Name Dose Route Start Last Admin Trade Name Freq PRN Reason Stop Dose Admin Acetaminophen 650 mg 07/28/18 20:57 07/28/18 21:51 Tylenol PO 08/27/18 20:56 650 mg Q4H PRN Administration pain/fever Atorvastatin Calcium 40 mg 07/28/18 21:00 07/28/18 21:52 Lipitor PO 08/27/18 20:59 40 mg HS CRISSY Administration Bupropion HCl 200 mg 07/28/18 21:00 07/29/18 08:05 Wellbutrin-Sr PO 08/27/18 20:59 200 mg BID CRISSY Administration Cetirizine HCl 10 mg 07/29/18 09:00 07/29/18 08:58 Zyrtec PO 08/28/18 08:59 10 mg QAM CRISSY Administration Lactated Ringer's 1,000 mls @ 80 mls/hr 07/28/18 20:57 07/29/18 11:27 Lr IV 07/29/18 21:56 80 mls/hr .[id number] CRISSY Administration Ceftriaxone Sodium 1,000 mg/ 50 mls @ 100 mls/hr 07/29/18 12:00 07/29/18 13:49 Dextrose IV 08/03/18 11:59 Infused Q24H CRISSY Infusion Protocol Methenamine Hippurate 1 gm 07/29/18 09:00 07/29/18 08:05 Urex PO 08/03/18 08:59 1 gm DAILY CRISSY Administration Miscellaneous 1 ea 07/29/18 00:00 07/29/18 07:19 Order Awaiting Action N/A 08/28/18 00:00 Not Given QS CRISSY Ondansetron HCl 4 mg 07/28/18 20:57 07/29/18 14:07 Zofran IV 08/27/18 20:56 4 mg Q6H PRN Administration Nausea Ranitidine HCl 150 mg 07/28/18 21:00 07/29/18 08:05 Zantac PO 08/27/18 20:59 150 mg BID CRISSY Administration Sodium Biphosphate/Sodium Phosphate 132 ml 07/29/18 08:00 07/29/18 08:17 Fleet Enema SD 08/28/18 07:59 Not Given DAILY CRISSY Topiramate 200 mg 07/28/18 21:00 07/29/18 08:06 Topamax PO 08/27/18 20:59 200 mg BID CRISSY Administration Trazodone HCl 200 mg 07/28/18 21:00 07/28/18 21:52 Desyrel PO 08/27/18 20:59 200 mg HS CRISSY Administration NPO Date Last Intake of Fluids: 07/29/18 Time Last Intake of Fluids: 08:58 Last Intake of Fluids Comment: sip of water with meds Date Last Intake of Solids: 07/27/18 Time Last Intake of Solids: 08:00 Past Medical History Medical History Allergic rhinitis (Acute) Constipation (Acute) Diabetes mellitus type 2, uncontrolled (Acute) Dyslipidemia (Acute) Gastroparesis (Acute) Hypertension (Acute) Impairment of cognitive function (Acute) Irritable bowel syndrome (Acute) Low back pain (Acute) Macular degeneration (Acute) Mild persistent asthma (Acute) Morbid obesity (Acute) Multiple thyroid nodules (Acute) Pre-ulcerative calluses (Acute) Sleep apnea (Acute) Urge incontinence of urine (Acute) Urinary frequency (Acute) Vaginal atrophy (Acute) Venous stasis (Acute) Diabetic peripheral neuropathy associated with type 2 diabetes mellitus Abdominal pressure Anxiety Depression Diabetes mellitus, type 2 GERD (gastroesophageal reflux disease) Hyperlipidemia Migraine Exercise / Class Metabolic Activity IV < 2 Limit ADL/Bedbound Past Family History Family History Daughter Family history of reaction to anesthesia vomiting Brother Family history of diabetes mellitus Sister Family history of diabetes mellitus Mother Family history of diabetes mellitus Grandmother (Maternal) Family history of diabetes mellitus Past Surgical History Surgical History History of cholecystectomy History of colonoscopy History of tonsillectomy History of tooth extraction all teeth History of total hysterectomy with bilateral salpingo-oophorectomy (BSO) Past Anesthesia History No Hx of Anesthesia Complications History of PONV No Hx of Motion Sickness and History of PONV Social History Smoking Status: Former smoker Hx Alcohol Use: No Hx Substance Use: No substance use type: does not use Review of Systems positive for nausea, but denies vomiting. Positive for reflux. Physical Exam Vital Signs Last Vital Signs Temp 36.4 C L 07/29/18 15:44 Pulse 72 07/29/18 15:44 Resp 20 07/29/18 15:44 BP 154/79 H 07/29/18 15:44 Pulse Ox 96 07/29/18 15:44 Constitutional + obese ENMT Mouth: + dentures and + edentulous; no TMJ abnormality and oral opening not small Thyromental Distance: < 3.5 Finger Breadths Mallampati Class: II Neck normal visual inspection, + short neck and + thick neck; neck extension not limited Respiratory normal respiratory effort Auscultation: lungs clear to auscultation bilaterally Cardiovascular Rate/Rhythm: regular rate and regular rhythm Heart Sounds: no murmur Psychiatric Orientation: alert and oriented x 3 Testing Laboratory Results FBG 140s 07/29/18 08:24 07/29/18 08:24 07/28/18 07/28/18 15:47 16:04 APTT 25.5 Urine Color Yellow Urine Appearance Cloudy A Urine pH >= 9.0 H Ur Specific [place] 1.015 Urine Protein Negative Urine Glucose (UA) Negative Urine Ketones Trace H Urine Nitrite Positive A Ur Leukocyte Esterase 2+ H Urine WBC (Auto) 10-30 H Urine RBC (Auto) 0-4 U Hyaline Cast (Auto) 1-5 U Epithel Cells (Auto) 5-10 H Urine Bacteria (Auto) 2+ H Electrocardiogram Date: 07/28/18 Findings: + NSR @ (78) and + RBBB T wave abnormality, consider lateral ischemia, Abnormal ECG, When compared with ECG of 28-MAY-2013 21:51, Inverted T waves have replaced nonspecific T wave abnormality in Inferior leads, T wave inversion now evident in Lateral leads, QT has shortened
--- NOTE | 2018-07-29 10:27 | Gastrointestinal Consultation ---
Date of Consultation July 29, 2018 Assessment & Plan (1) Rectal pain: Patient is a 73 yo female with a long-term history of rectal pain who was scheduled to have a colonoscopy as an outpatient on 07/28/2018. Unfortunately, due to a fever and possible cellulitis, her procedure was delayed. She had completed a bowel prep prior to her scheduled appointment on 07/28/2018 and has utilized a fleet enema this AM. There are no abdominal exam findings to correlate to CT scan findings of skin thickening of abdominal wall. 1) Keep NPO and proceed with colonoscopy today. 2) Supportive care per primary team. Present on Admission?: Yes Supervising Physician Co-Signing Physician Notes Agree with CHRISTIANO Salas as above Abd: Soft, NT, ND, +BS Continue current therapy Proceed with colonoscopy today History of Present Illness Reason for Consultation: Rectal pain Attending Physician: Giacomo Lovelace MD History of Present Illness Patient is a 73 yo female with a PMH of DM2, HLD, Macular degeneration, asthma, BRANDY, & morbid obesity who presented to [facility] on 07/28/2018 for an outpatient colonoscopy to be performed for further evaluation of abdominal pain. Reportedly, the patient was febrile and was cancelled by anesthesiology. She was sent to the ER for further evaluation. She was admitted to observation for a LLE cellulitis. She is afebrile and has no leukocytosis this AM. She reports that her rectal pain has been ongoing for "a long time" but cannot elaborate further regarding the duration of her symptoms. She reports occasional loose stools but is uncertain how often these occur. She denies taking anything for her rectal pain. She notes that she has had no rectal bleeding. She states she had a colonoscopy over 10 years ago, but does not remember the findings. She denies any known family history of GI malignancy. LFTs are within normal limits as is her CBC. She had a CT scan that indicated bladder thickening, possible proctitis, & skin thickening of the abdominal wall. Cirrhosis was inc identally noted, however she has no evidence of ascites. Allergies Allergy/AdvReac Type Severity Reaction Status Date / Time No Known Allergies Allergy Verified 07/28/18 17:39 Home Medications Home Medications Medication Instructions Recorded Confirmed Type albuterol sulfate [ProAir HFA] 2 puff INHALATION Q6H PRN 07/16/18 07/28/18 History aspirin 81 mg PO QAM 07/16/18 07/28/18 History atorvastatin 40 mg PO HS 07/16/18 07/28/18 History bupropion HCl 200 mg PO BID 07/16/18 07/28/18 History cetirizine 10 mg PO QAM 07/16/18 07/28/18 History cyanocobalamin (vitamin B-12) 1,000 mcg PO QAM 07/16/18 07/28/18 History [Vitamin B-12] docusate sodium 100 mg PO QAM 07/16/18 07/28/18 History ergocalciferol (vitamin D2) 50,000 unit PO WK 07/16/18 07/28/18 History furosemide 40 mg PO QAM 07/16/18 07/28/18 History ibuprofen 200 mg PO Q6H PRN 07/16/18 07/28/18 History insulin aspart U-100 [Novolog 40 unit SUBCUT BIDM 07/16/18 07/28/18 History U-100 Insulin aspart] insulin degludec [Tresiba 76 unit SUBCUT QAM 07/16/18 07/28/18 History FlexTouch U-200] meclizine 25 mg PO TID 07/16/18 07/28/18 History metformin 1,000 mg PO BID 07/16/18 07/28/18 History multivitamin 1 tab PO QAM 07/16/18 07/28/18 History ondansetron HCl 4 mg PO Q6 PRN 07/16/18 07/28/18 History ranitidine HCl 150 mg PO BID 07/16/18 07/28/18 History topiramate 200 mg PO BID 07/16/18 07/28/18 History trazodone 200 mg PO HS 07/16/18 07/28/18 History trospium 20 mg PO BID 07/16/18 07/28/18 History methenamine hippurate 1 gram tablet 1 g PO DAILY #30 tab 07/22/18 07/28/18 History potassium chloride ER 10 mEq 10 meq PO DAILY #90 tab 07/22/18 07/28/18 History tablet,extended release Patient History Medical History Allergic rhinitis (Acute) Constipation (Acute) Diabetes mellitus type 2, uncontrolled (Acute) Dyslipidemia (Acute) Gastroparesis (Acute) Hypertension (Acute) Impairment of cognitive function (Acute) Irritable bowel syndrome (Acute) Low back pain (Acute) Macular degeneration (Acute) Mild persistent asthma (Acute) Morbid obesity (Acute) Multiple thyroid nodules (Acute) Pre-ulcerative calluses (Acute) Sleep apnea (Acute) Urge incontinence of urine (Acute) Urinary frequency (Acute) Vaginal atrophy (Acute) Venous stasis (Acute) Diabetic peripheral neuropathy associated with type 2 diabetes mellitus Abdominal pressure Anxiety Depression Diabetes mellitus, type 2 GERD (gastroesophageal reflux disease) Hyperlipidemia Migraine Surgical History History of cholecystectomy History of colonoscopy History of tonsillectomy History of tooth extraction all teeth History of total hysterectomy with bilateral salpingo-oophorectomy (BSO) Family History Daughter Family history of reaction to anesthesia vomiting Brother Family history of diabetes mellitus Sister Family history of diabetes mellitus Mother Family history of diabetes mellitus Grandmother (Maternal) Family history of diabetes mellitus Social History Preferred Language: Trinidadian Communication Ability: Effective 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 Locomotive Crane Required: No Beliefs That Will Affect Care: None marital status: Current Living Situation: Spouse and Family Current Living Situation Comment: at home with and daughter Other Information That Helps Us Care for You: No Feels Safe at Home: Yes Safety Concerns: Feels Safe At This Time Smoking Status: Former smoker Second Hand Exposure: No Hx Alcohol Use: No Hx Substance Use: No Review of Systems Constitutional: no fever and no sweats Eyes: no acute issues Ear, Nose, Mouth, Throat: no acute complaints Respiratory: no cough and no change in sputum Cardiovascular: + edema; no chest pain Gastrointestinal: no abdominal pain rectal pain Musculoskeletal: + back pain Integumentary: + erythema Neurologic: no dizziness Psychiatric: no acute complaints Endocrine: no fatigue Hematologic / Lymphatic: no easy bleeding Physical Exam Constitutional: WD/WN, vitals as above Eyes: PERRL, conjunctivae normal, anicteric sclerae ENMT: external ear and nose normal, oropharynx normal Neck: normal visual inspection Respiratory: normal respiratory effort, lungs clear to auscultation Cardiovascular: Rate/Rhythm: regular rate and regular rhythm Gastrointestinal (Abdomen): normal bowel sounds, soft, nontender, no hepatosplenomegaly no evidence of ascites, no erythema to correspond to CT findings of abdominal wall Musculoskeletal: no cyanosis or clubbing, extremities motor strength 5/5 Skin: no rashes, warm and dry Neurologic: Speech / Cognition: normal speech Psychiatric: A+Ox3, euthymic affect Results & Data Vital Signs (Past 12 Hours) Vital Signs Temp Pulse Resp BP Pulse Ox 07/29/18 07:33 36.5 C 67 18 127/74 94 07/28/18 23:13 36.4 C L 60 20 118/89 99 07/28/18 23:09 37.0 C 75 19 129/75 92
--- NOTE | 2018-07-29 11:14 | Family Medicine Progress Note ---
Date of Service July 29, 2018 Assessment & Plan (1) Cellulitis: Kiersten is a 73-year-old female with a past medical history of hypertension, hyperlipidemia, insulin-dependent diabetes mellitus, dementia, BRANDY, chronic constipation and proctitis who is scheduled to have an outpatient colonoscopy today, but was noted to have a fever on arrival and was referred to the hospital for evaluation overnight prep. She was noted on admission to have some mild lower left extremity cellulitis. UTI, concerning for right pyelonephritis On admission she had a UA with positive nitrates, leukocyte esterase, white blood cells, and 2+ bacteria UC was quickly positive for mixed organisms She has had new onset abdominal pain, right flank pain, and mild dysuria Was initially treated with doxycycline for cellulitis as below, however given her picture concerning for UTI have discontinued doxycycline and converted her over to ceftriaxone 1 g for UTI coverage Left lower extremity cellulitis, improved On presentation her left lower extremity and an area concerning for cellulitis. She was treated empirically with doxycycline and showed clinical improvement, however given her fevers and flank pain and UA concerning for UTI as noted above doxycycline was discontinued and converted to ceftriaxone. Ceftriaxone 1 g every 24 hours should have adequate coverage for cellulitis excepting MRSA. Her cellulitis does not have any areas of crust or purulence consistent with MRSA, however she were to clinically worsen could consider broadening to cover for this. Prostatitis, need for colonoscopy Patient was scheduled for an outpatient colonoscopy with additional concern for chronic prostatitis. She had completed her bowel prep prior to admission. On admission she was placed on clears and a Fleet enema was given this morning per GIs recommendations. Her colonoscopy is still pending and will be performed by inpatient GI today Additional recommendations per GI pending above Hypokalemia, resolved Received potassium and magnesium repletion BMP in the morning Type 2 diabetes mellitus insulin-dependent Placed on insulin sliding scale on admit, glucose well controlled in low 100s on SSI Continue SSI, glucose checks AC/HS Hyperlipidemia Continue atorvastatin 40 mg Continue aspirin 81 mg every morning Hypertension Lasix held in the setting of hypokalemia, does not appear fluid overloaded at this time Given patient's hypertension and diabetes would benefit from an JOHN/ARB but does not appear to be on this [employer] and patient is a poor historian. Will attempt to clarify from external records. Depression Topiramate twice daily, trazodone nightly continue bupropion, DVT prophylaxis: Ambulate, SCDs (2) Acute UTI: (3) Rectal pain: (4) Abdominal pain: Supervising Physician Co-Signing Physician Notes I saw the patient with resident physician and confirmed uribe portions of history and physical exam. Agree with the impression and plan as noted above. Upon examination this morning, it is not clear if she has right CVA tenderness or more of a right lower back discomfort. There is an area on her left ugarte outlined in marker from last night; there is no obvious cellulitis or erythema within this outlined area this morning. She is afebrile. No leukocytosis. Abdominal pain Colonoscopy GI consult Cellulitis, lower extremity This is improved when compared to notes from last evening We will switch to Rocephin as it will also cover for potential UTI. UTI Urinalysis grossly positive but urine culture had heavy growth of multiple colonies She has some right-sided pain otherwise cannot say for sure this is CVA tenderness She is been switched to Rocephin which will cover both cellulitis as noted above and UTI Subjective Noemi reports she has new R sided flank pain this morning. She felt feverish with chills overnight. She has new RUQ abdominal pain today. She reports she has rectal pain all the time, and this seems to be at baseline today.She is a little bit nauseous. She has not vomited. She has had some very loose bowel movements/diarrhea with her colon prep and enema. She does not think she is well enough to go home after her colonoscopy, and feels wiped out. Review of Systems Review of Systems: Constitutional: Endorses fever, chills, malaise. Eyes: Denies vision change ENT: Denies ear pain, sore throat, sinus pain Cardiovascular: Denies Chest pain, chest pressure, palpitations, extremity swelling Respiratory: Denies shortness of breath, cough, sputum production, difficulty breathing Gastrointestinal: Endorses abdominal pain, nausea, diarrhea. Denies vomiting. Genitourinary: Endorses mild pain with urination. Denies urinary urgency, urinary frequency Musculoskeletal: Endorses some achiness in her muscles and right lower back. Endorses chronic rectal pain. Otherwise denies new muscle or joint aches. Integumentary:Denies rash, lesions, bruising Neurological: Denies headache, numbness, tingling Physical Exam Physical Exam: General: A&Ox3. NAD. Cooperative. HEENT: Atraumatic, normocephalic. Pulm: CTAB A&P. -wheezes, -rales, -rhonchi. Symmetrical chest rise. No increase work of breathing. No respiratory distress. Cardiac: RRR, -mrg. Radial pulses intact and symmetrical. Abdominal: Right lower quadrant abdominal tenderness. Right lower back/flank tenderness. No rebound tenderness. No left sided tenderness. Abdomen obese, soft. Extremity: Left lower extremity with mild erythema, nearly absent today. She has some discomfort in her legs bilaterally, but no increased pain on the left side. No lower extremity edema. No warmth. Results & Data Vital Signs (Past 12 Hours) Vital Signs Temp Pulse Resp BP Pulse Ox 07/29/18 07:33 36.5 C 67 18 127/74 94 07/28/18 23:13 36.4 C L 60 20 118/89 99 07/28/18 23:09 37.0 C 75 19 129/75 92 Resident Activity Tracking Resident Involvement: Resident Care Provided Care Provided: Adult Hospital Medicine (1) Abdominal pain Abdominal location: generalized Qualified Code(s): R10.84 - Generalized abdominal pain
[2018-07-29] MEDS ORDERED: MICONAZOLE NITRATE POWDER 43 GM ONE (11:22)
[2018-07-29] MEDS: LACTATED RINGER'S 1,000 ML IV SCH (11:27)
[2018-07-29] MEDS: cefTRIAXone SODIUM 1,000 MG in DEXTROSE 5% 50 ML IV SCH (13:19)
[2018-07-29] MEDS: ONDANSETRON INJ 2 MG/ML 2 ML VIAL IV PRN (14:07)
[2018-07-29] MEDS ORDERED: PROPOFOL IV EMULSION 10 MG/ML 20 ML VIAL IV ONE (16:45)
[2018-07-29] MEDS ORDERED: LIDOCAINE HCL 2% 2 ML VIAL/AMP(20MG/ML) INFIL ONE (16:45)
[2018-07-29] MEDS ORDERED: fentaNYL citrate 100 MCG/2 ML VIAL ONE (16:45)
[2018-07-29] MEDS ORDERED: MIDAZOLAM HCL 1 MG/ML 2ML VIAL ONE (16:45)
--- NOTE | 2018-07-29 17:20 | GI REPORT ---
Patient Name: Noemi Yang Procedure Date: 07/29/2018 4:50 PM Date of : 1945 Admit Type: Inpatient Age: 73 Gender: Female Attending MD: Chino Santiago DO Procedure: Colonoscopy Providers: Chino Santiago DO Referring MD: Becki Jackson Md Indications: Abnormal CT of the GI tract, Rectal pain Medicines: Monitored Anesthesia Care Complications: No immediate complications. Estimated Blood Loss: Estimated blood loss: none. Procedure: Pre-Anesthesia Assessment: - Prior to the procedure, a History and Physical was performed, and patient medications and allergies were reviewed. The patient's tolerance of previous anesthesia was also reviewed. The risks and benefits of the procedure and the sedation options and risks were discussed with the patient. All questions were answered, and informed consent was obtained. Prior Anticoagulants: The patient has taken aspirin, last dose was 2 days prior to procedure. ASA Grade Assessment: III - A patient with severe systemic disease. After reviewing the risks and benefits, the patient was deemed in satisfactory condition to undergo the procedure. After I obtained informed consent, the scope was passed under direct vision. Throughout the procedure, the patient's blood pressure, pulse, and oxygen saturations were monitored continuously. The Colonoscope was introduced through the anus and advanced to the terminal ileum. The colonoscopy was performed without difficulty. The patient tolerated the procedure well. The quality of the bowel preparation was poor. The appendiceal orifice and the rectum were photographed. Findings: The perianal and digital rectal examinations were normal. Non-bleeding internal hemorrhoids were found during retroflexion. The hemorrhoids were small. Biopsies were taken with a cold forceps in the rectum for histology. Impression: - Preparation of the colon was poor. - Non-bleeding internal hemorrhoids. - Biopsies were taken with a cold forceps for histology in the rectum. Recommendation: - Return patient to [facility] for [facility] care. - Continue present medications. - Await pathology results. - Advance diet as tolerated. Chino Santiago DO 07/29/2018 5:19:21 PM This report has been signed electronically. Note Initiated On: 07/29/2018 4:50 PM Number of Addenda: 0 I attest to the content of the Intraoperative Record and orders documented therein, exceptions below {[id number]}
[2018-07-29] MEDS ORDERED: INSULIN ASPART 100 UNITS/ML 3 ML PEN SC SCH (18:00)
[2018-07-29] MEDS ORDERED: MoRPHine SULFATE 4 MG/ML 1 ML CARP\\VIAL IV PRN (18:53)
[2018-07-29] MEDS ORDERED: MoRPHine SULFATE 2 MG/ML CARP IV PRN (18:53)
--- NOTE | 2018-07-29 19:02 | Anesthesiology Progress Note ---
Date of Service July 29, 2018 Anesthesia Post Procedure Vital Signs Vital Signs: Temp Pulse Pulse Resp BP BP Pulse Ox 07/29/18 18:12 68 18 148/54 H 95 07/29/18 17:50 68 20 145/74 H 97 07/29/18 17:34 69 20 140/58 L 93 07/29/18 17:19 72 20 133/52 L 95 07/29/18 15:44 36.4 C L 72 20 154/79 H 96 07/29/18 14:52 36.6 C 71 20 146/81 H 97 07/29/18 07:33 36.5 C 67 18 127/74 94 07/28/18 23:13 36.4 C L 60 20 118/89 99 07/28/18 23:09 37.0 C 75 19 129/75 92 07/28/18 21:17 37.1 C 78 18 174/80 H 91 07/28/18 20:13 77 19 149/71 H 97 Pain Intensity Bilateral Back: Pain Intensity: 8 Transfer of Care Handoff Completed per policy Notes Mental Status: alert / awake / arousable Patient Amnestic to Procedure: Yes Nausea / Vomiting: adequately controlled Pain: adequately controlled Airway Patency, RR, SpO2: stable & adequate BP & HR: stable & adequate Hydration State: stable & adequate Anesthetic Complications: no major complications apparent
[2018-07-29] MEDS: ATORVASTATIN 40 MG TAB PO SCH (20:34)
[2018-07-29] MEDS: TRAZODONE HCL 100 MG TAB PO SCH (20:35)
[2018-07-29] MEDS: ACETAMINOPHEN 325 MG TAB PO PRN (21:22)
[2018-07-30] MEDS: TROSPIUM ~ ORDER AWAITING ACTION SCH ×5 (00:28→23:08)
[2018-07-30 07:22] LABS: Basophils # (auto) 0.02 K/uL (0-0.2); Basophils % (auto) 0.4 %; Eosinophils # (auto) 0.15 K/uL (0-0.5); Eosinophils % (auto) 2.8 %; Hematocrit (blood only) 37.7 % (37-47); Hemoglobin 12.8 g/dL (12.0-16.0); Lymphocytes # (auto) 1.96 K/uL (1.2-3.4); Lymphocytes % (auto) 37.2 %; Mean Corpuscular Volume 87.1 fL (80-100); Mean Platelet Volume 8.9 fL (7.4-10.4); Monocytes % (auto) 5.7 %; Neutrophils # (auto) 2.84 K/uL (1.4-6.5); Neutrophils % (auto) 53.9 %; Platelet Count 233 K/uL (130-400); RDW Coefficient of Variation 14.3 % (11.5-14.5); RDW Standard Deviation 45.6 fL (36.4-46.3); Red Blood Count 4.33 M/uL (4.2-5.4); White Blood Count 5.27 K/uL (4.8-10.8)
[2018-07-30 07:46] LABS: Calcium 8.4 mg/dl (8.5-10.1); Creatinine Clr Calc Pharmacy 61.2 ml/min; Est GFR (African American) 72.6; Est GFR (Non-African American) 62.6; Magnesium 2.5 mg/dl (1.8-2.4); Potassium 3.7 mmol/L (3.5-5.1)
[2018-07-30] MEDS: TOPIRAMATE 100 MG TAB PO SCH ×2 (08:17→21:32)
[2018-07-30] MEDS: METHENAMINE HIPPURATE 1 GM TAB PO SCH (08:18)
[2018-07-30] MEDS: CETIRIZINE HCL 10 MG TABLET PO SCH (08:18)
[2018-07-30] MEDS: SOD PHOSPHATE/SOD BIPHOSPHATE ENEMA 132 ML BTL PR SCH (08:18)
[2018-07-30] MEDS: BuPROPion SR 100 MG TABCR PO SCH ×2 (08:18→21:31)
[2018-07-30] MEDS: INSULIN ASPART 100 UNITS/ML 3 ML PEN SC SCH ×4 (08:47→21:35)
[2018-07-30] MEDS: cefTRIAXone SODIUM 1,000 MG in DEXTROSE 5% 50 ML IV SCH (12:09)
--- NOTE | 2018-07-30 13:19 | Family Medicine Progress Note ---
Date of Service July 30, 2018 Assessment & Plan (1) Proctitis: Kiersten is a 73-year-old female with a past medical history of hypertension, hyperlipidemia, insulin-dependent diabetes mellitus, dementia, BRANDY, chronic constipation and proctitis who was scheduled to have an outpatient colonoscopy, but was noted to have a fever on arrival and was referred to the hospital for evaluation overnight prep. She was noted on admission to have some mild lower left extremity cellulitis. Left lower extremity cellulitis, improved On presentation her left lower extremity and an area concerning for cellulitis. She was treated empirically with doxycycline and showed clinical improvement, however given her fever and flank pain and UA concerning for UTI as noted above doxycycline was discontinued and converted to ceftriaxone. Her cellulitis improved and improves resolved today. She has not been febrile during her hospital admission. -[id number]-, Proctitis s/p colonoscopy Patient was scheduled for an outpatient colonoscopy with additional concern for chronic prostatitis. She had completed her bowel prep prior to admission. On admission she was placed on clears and a Fleet enema prior to colonoscopy. - Colonoscopy revealed normal perirectal and rectal tissue, small nonbleeding hemorrhoids, and unremarkable colonic mucousa. Biopsy samples were taken, pending further recommendations and followup by GI. UTI, concerning for right pyelonephritis On admission she had a UA with positive nitrates, leukocyte esterase, white blood cells, and 2+ bacteria UC was positive for mixed organisms She has had new onset abdominal pain, right flank pain, and mild dysuria Was initially treated with doxycycline for cellulitis as below, however given her picture concerning for UTI have discontinued doxycycline and converted her over to ceftriaxone 1 g for UTI coverage Panniculitis - She is diffusely tender in her pannus without signs of infection, suspect chronic underlying panniculitis 2/2 chronic high dose insulin injections. CT shows collaborating superficial tissue/subQ fat thickening. No traumatic cause. Differential could include vacular vs infectious deposition in origin. Will follow clinically with tx as below, but could consider biopsy for mohit cterization if she does not improve. - Trial naproxen BID, she is diabetic but her kidney function remains stable so will trial cautiously for inflammation at this time. - No signs of acute infection Hypokalemia, resolved Received potassium and magnesium repletion BMP in the morning Type 2 diabetes mellitus insulin-dependent Placed on insulin sliding scale on admit, glucose well controlled in low 100s on SSI Continue SSI, glucose checks AC/HS Hyperlipidemia Continue atorvastatin 40 mg Continue aspirin 81 mg every morning Hypertension Lasix held in the setting of hypokalemia, does not appear fluid overloaded at this time Given patient's hypertension and diabetes would benefit from an JOHN/ARB but does not appear to be on this [employer] and patient is a poor historian. Will attempt to clarify from external records. Depression Topiramate twice daily, trazodone nightly continue bupropion Dispo: Ongoing. PT eval, conversion from IV to oral today. She normally has family support at home, however her is admitted to the hospital and her children are away so have concerns with her ability to self-care alone at home especially given strength loss while feeling ill. (2) Acute UTI: (3) Abdominal pain: (4) Cellulitis: (5) Rectal pain: Supervising Physician Co-Signing Physician Notes Patient seen and examined with Dr. Velásquez. Agree with history, exam findings, assessment and plan as outlined below. In brief, Ms Yang is a 73 year old female admitted for colonoscopy. She was to have this done as an outpatient but was febrile and was sent to the ED for further evaluation by GI and inpatient colonoscopy for proctitis. Her colonoscopy was relatively benign. However, she continues to complain of diffuse discomfort in the pannus and right flank areas. She is diffusely tender in the panus area. The skin is woody in texture, but there is no erythema, satellite lesions or skin breakdown. She continues to have pain to palpation over the lower ribs in the right flank. Pain does not change between palpation and CVA percussion. Urine was contaminated with multiple organisms. Likely her anterior abdominal pain seems to be from the pannus. ?chronic panniculitis. No evidence of infection at this point. CT findings consistent with inflammation of the subq tissue. NSAIDs, warm compresses. ?urinary tract infection vs pyelo. She is on ceftriaxone. Will continue then transition her to Bactrim or another antibiotic that will cover both urine and skin bugs. Dipso: Likely discharge home tomorrow. Rosie Franklin was seen at bedside today. She continues to feel tired, diffusely achy in her belly and right lower back. She denies fevers and chills overnight. She has had no nausea, vomiting, diarrhea, constipation. She reports she is concerned about going home as her is in the hospital and her daughter who helps take care of them is away so she would be home alone and has lost strength in the hospital. She reports both of her legs feel achy today. Review of Systems Review of Systems: Constitutional: Endorses fever, chills, malaise. Eyes: Denies vision change ENT: Denies ear pain, sore throat, sinus pain Cardiovascular: Denies Chest pain, chest pressure, palpitations, extremity swelling Respiratory: Denies shortness of breath, cough, sputum production, difficulty breathing Gastrointestinal: Endorses abdominal pain, nausea, diarrhea. Denies vomiting. Genitourinary: Endorses mild pain with urination. Denies urinary urgency, urinary frequency Musculoskeletal: Endorses some achiness in her muscles and right lower back. Endorses chronic rectal pain. Endorses R back pain. Otherwise denies new muscle or joint aches. Integumentary:Denies rash, lesions, bruising Neurological: Denies headache, numbness, tingling Physical Exam Physical Exam: General: A&Ox2. NAD. Cooperative. HEENT: Atraumatic, normocephalic. Pulm: CTAB A&P. -wheezes, -rales, -rhonchi. Symmetrical chest rise. No increase work of breathing. No respiratory distress. Cardiac: RRR, -mrg. Radial pulses intact and symmetrical. Abdominal: Right lower quadrant abdominal tenderness. Right lower back/flank tenderness. No rebound tenderness. Abdomen obese, soft. Diffuse tenderness on pannus manipulation. No pannus erythema/lesions/exudate. No CVA tenderness. Small suprapubic ~7-10mm flat skin lesion with wart-like appearance. Extremity: LLE without swelling or erythema today. She has some discomfort in her legs bilaterally, but no increased pain on the left side. No lower extremity edema. No warmth. Results & Data Vital Signs (Past 12 Hours) Vital Signs Temp Pulse Resp BP Pulse Ox 07/30/18 00:00 36.8 C 71 18 117/67 93 Resident Activity Tracking Resident Involvement: Resident Care Provided Care Provided: Adult Hospital Medicine (1) Abdominal pain Abdominal location: generalized Qualified Code(s): R10.84 - Generalized abdominal pain
[2018-07-30] MEDS ORDERED: NAPROXEN 250 MG TAB PO PRN (13:52)
[2018-07-30] MEDS: ATORVASTATIN 40 MG TAB PO SCH (21:30)
[2018-07-30] MEDS: TRAZODONE HCL 100 MG TAB PO SCH (21:33)
[2018-07-30] MEDS: guaiFENesin SUGAR FREE 100 MG/5 ML UDC PO PRN (21:33)
[2018-07-31] MEDS: ONDANSETRON INJ 2 MG/ML 2 ML VIAL IV PRN (03:26)
[2018-07-31] MEDS: guaiFENesin SUGAR FREE 100 MG/5 ML UDC PO PRN (03:32)
[2018-07-31 06:00] LABS: Basophils # (auto) 0.04 K/uL (0-0.2); Basophils % (auto) 0.7 %; Eosinophils # (auto) 0.21 K/uL (0-0.5); Eosinophils % (auto) 3.7 %; Hematocrit (blood only) 36.2 % (37-47); Hemoglobin 12.4 g/dL (12.0-16.0); Immature Granulocytes # (auto) 0.01 K/uL (0.00-0.02); Immature Granulocytes % (auto) 0.2 %; Lymphocytes # (auto) 2.02 K/uL (1.2-3.4); Lymphocytes % (auto) 35.4 %; Mean Corpuscular Hgb Conc 34.3 g/dL (32-36); Mean Platelet Volume 9.1 fL (7.4-10.4); Monocytes # (auto) 0.34 K/uL (0.11-0.59); Neutrophils # (auto) 3.09 K/uL (1.4-6.5); Platelet Count 230 K/uL (130-400); RDW Coefficient of Variation 14.2 % (11.5-14.5); RDW Standard Deviation 44.3 fL (36.4-46.3); Red Blood Count 4.21 M/uL (4.2-5.4); White Blood Count 5.71 K/uL (4.8-10.8)
[2018-07-31 06:32] LABS: BUN Creatinine Ratio 15.2 (10-20); Calcium 9.6 mg/dl (8.5-10.1); Creatinine Clr Calc Pharmacy 61.9 ml/min; Est GFR (African American) 73.6; Est GFR (Non-African American) 63.5
--- NOTE | 2018-07-31 08:40 | Family Medicine Progress Note ---
Date of Service July 31, 2018 Assessment & Plan (1) Proctitis: Kiersten is a 73-year-old female with a past medical history of hypertension, hyperlipidemia, insulin-dependent diabetes mellitus, dementia, BRANDY, chronic constipation and proctitis who was scheduled to have an outpatient colonoscopy, but was noted to have a fever on arrival and was referred to the hospital for evaluation overnight prep. She was noted on admission to have some mild lower left extremity cellulitis. Left lower extremity cellulitis, improved On presentation her left lower extremity and an area concerning for cellulitis. She was treated empirically with doxycycline and showed clinical improvement, however given her fever and flank pain and UA concerning for UTI as noted above doxycycline was discontinued and converted to ceftriaxone. Her cellulitis improved and improves resolved today. She has not been febrile during her hospital admission. -[id number]-, Proctitis s/p colonoscopy Patient was scheduled for an outpatient colonoscopy with additional concern for chronic prostatitis. She had completed her bowel prep prior to admission. On admission she was placed on clears and a Fleet enema prior to colonoscopy. - Colonoscopy revealed normal perirectal and rectal tissue, small nonbleeding hemorrhoids, and unremarkable colonic mucousa. Biopsy samples were taken, pending further recommendations and followup by GI. UTI, concerning for right pyelonephritis On admission she had a UA with positive nitrates, leukocyte esterase, white blood cells, and 2+ bacteria UC was positive for mixed organisms She has had new onset abdominal pain, right flank pain, and mild dysuria Was initially treated with doxycycline for cellulitis as below, however given her picture concerning for UTI have discontinued doxycycline and converted her over to ceftriaxone 1 g for UTI coverage Panniculitis - She is diffusely tender in her pannus without signs of infection, suspect chronic underlying panniculitis 2/2 chornic high dose insulin injections. CT shows collaborating superficial tissue/subQ fat thickening. No traumatic cause. Differential could include vacular vs infectious deposition in origin. Will follow clinically with tx as below, but could consider biopsy for mohit cterization if she does not improve. - Trial naproxen BID, she is diabetic but her kidney function remains stable so will trial cautiously for inflammation at this time. - No signs of acute infection Hypokalemia, resolved Received potassium and magnesium repletion BMP in the morning Type 2 diabetes mellitus insulin-dependent Placed on insulin sliding scale on admit, glucose well controlled in low 100s on SSI Continue SSI, glucose checks AC/HS Hyperlipidemia Continue atorvastatin 40 mg Continue aspirin 81 mg every morning Hypertension Lasix held in the setting of hypokalemia, does not appear fluid overloaded at this time Given patient's hypertension and diabetes would benefit from an JOHN/ARB but does not appear to be on this [employer] and patient is a poor historian. Will attempt to clarify from external records. Depression Topiramate twice daily, trazodone nightly continue bupropion Dispo: Ongoing. PT eval, conversion from IV to oral today. She normally has family support at home, however her is admitted to the hospital and her children are away so have concerns with her ability to self-care alone at home especially given strength loss while feeling ill. (2) Acute UTI: (3) Abdominal pain: (4) Cellulitis: Kiersten is a 73-year-old female with a past medical history of hypertension, hyperlipidemia, insulin-dependent diabetes mellitus, dementia, BRANDY, chronic constipation and proctitis who is scheduled to have an outpatient colonoscopy today, but was noted to have a fever on arrival and was referred to the hospital for evaluation overnight prep. She was noted on admission to have some mild lower left extremity cellulitis. UTI, concerning for right pyelonephritis On admission she had a UA with positive nitrates, leukocyte esterase, white blood cells, and 2+ bacteria UC was quickly positive for mixed organisms She has had new onset abdominal pain, right flank pain, and mild dysuria Was initially treated with doxycycline for cellulitis as below, however given her picture concerning for UTI have discontinued doxycycline and converted her over to ceftriaxone 1 g for UTI coverage Left lower extremity cellulitis, improved On presentation her left lower extremity and an area concerning for cellulitis. She was treated empirically with doxycycline and showed clinical improvement, however given her fevers and flank pain and UA concerning for UTI as noted above doxycycline was discontinued and converted to ceftriaxone. Ceftriaxone 1 g every 24 hours should have adequate coverage for cellulitis ex cepting MRSA. Her cellulitis does not have any areas of crust or purulence consistent with MRSA, however she were to clinically worsen could consider broadening to cover for this. Prostatitis, need for colonoscopy Patient was scheduled for an outpatient colonoscopy with additional concern for chronic prostatitis. She had completed her bowel prep prior to admission. On admission she was placed on clears and a Fleet enema was given this morning per GIs recommendations. Her colonoscopy is still pending and will be performed by inpatient GI today Additional recommendations per GI pending above Hypokalemia, resolved Received potassium and magnesium repletion BMP in the morning Type 2 diabetes mellitus insulin-dependent Placed on insulin sliding scale on admit, glucose well controlled in low 100s on SSI Continue SSI, glucose checks AC/HS Hyperlipidemia Continue atorvastatin 40 mg Continue aspirin 81 mg every morning Hypertension Lasix held in the setting of hypokalemia, does not appear fluid overloaded at this time Given patient's hypertension and diabetes would benefit from an JOHN/ARB but does not appear to be on this [employer] and patient is a poor historian. Will attempt to clarify from external records. Depression Topiramate twice daily, trazodone nightly continue bupropion, DVT prophylaxis: Ambulate, SCDs (5) Rectal pain: Results & Data Vital Signs (Past 12 Hours) Vital Signs Temp Pulse Resp BP Pulse Ox 07/31/18 07:32 36.7 C 69 18 144/81 H 95 07/30/18 23:57 36.6 C 70 19 149/75 H 94 Laboratory Results 07/31/18 07/31/18 07/31/18 Range/Units 07:51 05:38 05:38 WBC 5.71 (4.8-10.8) K/uL RBC 4.21 (4.2-5.4) M/uL Hgb 12.4 (12.0-16.0) g/dL Hct 36.2 L (37-47) % MCV 86.0 (80-100) fL MCH 29.5 (25-34) pg MCHC 34.3 (32-36) g/dL RDW Std Deviation 44.3 (36.4-46.3) fL RDW Coeff of Misha 14.2 (11.5-14.5) % Plt Count 230 (130-400) K/uL MPV 9.1 (7.4-10.4) fL Immature Gran % (Auto) 0.2 % Neut % (Auto) 54.0 % Lymph % (Auto) 35.4 % [place] % (Auto) 6.0 % Eos % (Auto) 3.7 % Baso % (Auto) 0.7 % Immature Gran # (Auto) 0.01 (0.00-0.02) K/uL Neut # (Auto) 3.09 (1.4-6.5) K/uL Lymph # (Auto) 2.02 (1.2-3.4) K/uL [place] # (Auto) 0.34 (0.11-0.59) K/uL Eos # (Auto) 0.21 (0-0.5) K/uL Baso # (Auto) 0.04 (0-0.2) K/uL Sodium 143 (136-145) mmol/L Potassium 4.0 (3.5-5.1) mmol/L Chloride 113 H (98-107) mmol/L Carbon Dioxide 25 (21-32) mmol/L Anion Gap 6.0 (3-11) BUN 14 D (7-18) mg/dl Creatinine 0.91 (0.6-1.2) mg/dl Est Cr Clr Drug Dosing 61.9 ml/min Est GFR ( Amer) 73.6 Est GFR (Non-Af Amer) 63.5 BUN/Creatinine Ratio 15.2 (10-20) Glucose 186 H (70-99) mg/dl POC Glucose 193 H (70-99) Calcium 9.6 (8.5-10.1) mg/dl 07/30/18 07/30/18 07/30/18 Range/Units 21:28 16:59 11:59 WBC (4.8-10.8) K/uL RBC (4.2-5.4) M/uL Hgb (12.0-16.0) g/dL Hct (37-47) % MCV (80-100) fL MCH (25-34) pg MCHC (32-36) g/dL RDW Std Deviation (36.4-46.3) fL RDW Coeff of Misha (11.5-14.5) % Plt Count (130-400) K/uL MPV (7.4-10.4) fL Immature Gran % (Auto) % Neut % (Auto) % Lymph % (Auto) % [place] % (Auto) % Eos % (Auto) % Baso % (Auto) % Immature Gran # (Auto) (0.00-0.02) K/uL Neut # (Auto) (1.4-6.5) K/uL Lymph # (Auto) (1.2-3.4) K/uL [place] # (Auto) (0.11-0.59) K/uL Eos # (Auto) (0-0.5) K/uL Baso # (Auto) (0-0.2) K/uL Sodium (136-145) mmol/L Potassium (3.5-5.1) mmol/L Chloride (98-107) mmol/L Carbon Dioxide (21-32) mmol/L Anion Gap (3-11) BUN (7-18) mg/dl Creatinine (0.6-1.2) mg/dl Est Cr Clr Drug Dosing ml/min Est GFR ( Amer) Est GFR (Non-Af Amer) BUN/Creatinine Ratio (10-20) Glucose (70-99) mg/dl POC Glucose 170 H 176 H 184 H (70-99) Calcium (8.5-10.1) mg/dl Medications Administered Current Inpatient Medications Acetaminophen (Tylenol) 650 mg PO Q4H PRN PRN Reason: pain/fever Stop: 08/27/18 20:56 Last Admin: 07/29/18 21:22 Dose: 650 mg Documented by: Albuterol (Ventolin Hfa) 2 puffs INH Q6H PRN PRN Reason: Shortness Of Breath Stop: 08/27/18 20:56 Last Admin: 07/30/18 00:52 Dose: 2 puffs Documented by: Atorvastatin Calcium (Lipitor) 40 mg PO HS [facility] Stop: 08/27/18 20:59 Last Admin: 07/30/18 21:30 Dose: 40 mg Documented by: Bupropion HCl (Wellbutrin-Sr) 200 mg PO BID [facility] Stop: 08/27/18 20:59 Last Admin: 07/30/18 21:31 Dose: 200 mg Documented by: Cetirizine HCl (Zyrtec) 10 mg PO QAM [facility] Stop: 08/28/18 08:59 Last Admin: 07/30/18 08:18 Dose: 10 mg Documented by: Guaifenesin (Robitussin Sugar Free Syrup) 100 mg PO Q6H PRN PRN Reason: Cough Stop: 08/29/18 17:22 Last Admin: 07/31/18 03:32 Dose: 100 mg Documented by: Ceftriaxone Sodium 1,000 mg/ (Dextrose) 50 mls @ 100 mls/hr IV Q24H [facility]; Protocol Stop: 08/03/18 11:59 Last Infusion: 07/30/18 14:48 Dose: Infused Documented by: Insulin Aspart (Novolog Flexpen) 0 units SC ACHS [facility] Stop: 08/28/18 17:59 Last Admin: 07/30/18 21:35 Dose: 1 units Documented by: Methenamine Hippurate (Urex) 1 gm PO DAILY [facility] Stop: 08/03/18 08:59 Last Admin: 07/30/18 08:18 Dose: 1 gm Documented by: Miscellaneous (Order Awaiting Action) 1 ea N/A QS [facility] Stop: 08/28/18 00:00 Last Admin: 07/30/18 23:08 Dose: Not Given Documented by: Morphine Sulfate (Morphine Sulfate) 2 mg IV Q2H PRN PRN Reason: Severe Pain (7,8,9,10) Stop: 08/12/18 18:52 Last Admin: 07/30/18 00:01 Dose: 2 mg Documented by: Morphine Sulfate (Morphine Sulfate) 1 mg IV Q2H PRN PRN Reason: Moderate Pain (4,5,6) Stop: 08/12/18 18:52 Last Admin: 07/31/18 03:26 Dose: 2 mg Documented by: Naproxen (Naprosyn) 250 mg PO BID PRN PRN Reason: Pain Stop: 08/29/18 13:51 Last Admin: 07/30/18 15:44 Dose: 250 mg Documented by: Ondansetron HCl (Zofran) 4 mg IV Q6H PRN PRN Reason: Nausea Stop: 08/27/18 20:56 Last Admin: 07/31/18 03:26 Dose: 4 mg Documented by: Ranitidine HCl (Zantac) 150 mg PO BID [facility] Stop: 08/27/18 20:59 Last Admin: 07/30/18 21:31 Dose: 150 mg Documented by: Sodium Biphosphate/Sodium Phosphate (Fleet Enema) 132 ml [place] DAILY [facility] Stop: 08/28/18 07:59 Last Admin: 07/30/18 08:18 Dose: Not Given Documented by: Topiramate (Topamax) 200 mg PO BID [facility] Stop: 08/27/18 20:59 Last Admin: 07/30/18 21:32 Dose: 200 mg Documented by: Trazodone HCl (Desyrel) 200 mg PO HS [facility] Stop: 08/27/18 20:59 Last Admin: 07/30/18 21:33 Dose: 200 mg Documented by: (1) Abdominal pain Abdominal location: generalized Qualified Code(s): R10.84 - Generalized abdominal pain
[2018-07-31] MEDS: BuPROPion SR 100 MG TABCR PO SCH (09:21)
[2018-07-31] MEDS: TOPIRAMATE 100 MG TAB PO SCH (09:21)
[2018-07-31] MEDS: TROSPIUM ~ ORDER AWAITING ACTION SCH (09:21)
[2018-07-31] MEDS: CETIRIZINE HCL 10 MG TABLET PO SCH (09:22)
[2018-07-31] MEDS: METHENAMINE HIPPURATE 1 GM TAB PO SCH (09:22)
[2018-07-31] MEDS: INSULIN ASPART 100 UNITS/ML 3 ML PEN SC SCH ×2 (09:23→12:51)
[2018-07-31] MEDS: SOD PHOSPHATE/SOD BIPHOSPHATE ENEMA 132 ML BTL PR SCH (09:25)
--- NOTE | 2018-07-31 11:41 | Discharge Summary ---
Date of Service July 31, 2018 Admission HPI Per Admitting Provider 73 y/o F Hx HTN, HLD, DM, depression, mild dementia, BRANDY, chronic constipation and proctitis, obesity. The pt has been having rectal pain and was due for a colonoscopy. She arrived for the colonoscopy and apparently had a fever. She was then referred to the hospital fo evaluation and an overnight prep for the procedure. It does appear that she has developed some mild cellulitis on her LLE which is inflamed and painful to the touch. PMH: 1) Procititis and chronic constipation 2) Depression 3) Mild dementia 4) Morbid obesity 5) DM II 6) HTN 7) HLD 8) Urge incontinence 9) IBS 10) Gastroparesis 11) Peripheral neuropathy Surgical: 1) Hysterectomy 2) Tonsillectomy Social: Quit smoking several years ago Does not drink Her daughter manages her medications and medical appointments Family: Mother due to ESRD Father following an MS Admission Exam Per Admitting Provider General: Overweight and eccentric, elderly F, AAO x 2, no distress ENT: No erythema or exudates, no thrush Eyes: BARTOLO, EOMI Head and neck: Normocephalic, atraumatic, No JVD, neck is supple. Chest/heart: Nontender, S1,2, RRR, no murmurs, no gallops Lungs: CTAB, no wheezing or crackles Abdomen: Nontender, nondistended, BS+ Neuro: AAO x 2, speech is clear, no unilateral weakness or loss of sensation, coordination intact Musculoskeletal: No joint inflammation, muscle tenderness, FROM Skin: There is erythema and tenderness of the skin of the LLE above the ankle and to the mid ugarte Extremities: No clubbing, cyanosis, edema Principal Diagnosis Cellulitis Discharge Exam General: A&Ox2. NAD. Cooperative. HEENT: Atraumatic, normocephalic. Pulm: CTAB A&P. -wheezes, -rales, -rhonchi. Symmetrical chest rise. No increase work of breathing. No respiratory distress. Cardiac: RRR, -mrg. Radial pulses intact and symmetrical. Abdominal: Right lower back/flank tenderness. No rebound tenderness. Abdomen obese, soft. Diffuse tenderness on pannus manipulation. No pannus erythema/lesions/exudate. No CVA tenderness. Extremity: LLE without swelling or erythema today. She has some discomfort in her legs bilaterally, but no increased pain on the left side. No lower extremity edema. No warmth. Discharge Data Allergies Allergy/AdvReac Type Severity Reaction Status Date / Time No Known Allergies Allergy Verified 07/28/18 17:39 Consultations 07/28/18 18:30 ED Decision to Admit Stat 07/28/18 20:57 Consult Gastroenterology Routine Procedures Performed Operation Date: 07/29/18 10:45 Actual Procedures p Colonoscopy - Chino Mata Case, DO Ordered Studies 07/28/18 15:54 CT abd pelvis wo con Stat Hospital Course (1) Proctitis: Kiersten is a 73-year-old female with a past medical history of hypertension, hyperlipidemia, insulin-dependent diabetes mellitus, dementia, BRANDY, chronic constipation and proctitis who was scheduled to have an outpatient colonoscopy, but was noted to have a fever on arrival and was referred to the hospital for evaluation overnight prep. She was noted on admission to have some mild lower left extremity cellulitis. Left lower extremity cellulitis, improved On presentation her left lower extremity and an area concerning for cellulitis. She was treated empirically with doxycycline and showed clinical improvement, however given her fever and flank pain and UA concerning for UTI as noted above doxycycline was discontinued and converted to ceftriaxone. Her cellulitis improved and improves resolved today. She has not been febrile during her hospital admission. Today is day 3/7 abx plan to discharge on Bactrim to complete 4 more days as an outpatient. Proctitis s/p colonoscopy Patient was scheduled for an outpatient colonoscopy with additional concern for chronic prostatitis. She had completed her bowel prep prior to admission. On admission she was placed on clears and a Fleet enema prior to colonoscopy. Colon oscopy revealed normal perirectal and rectal tissue, small nonbleeding hemorrhoids, and unremarkable colonic mucousa. Biopsy samples were taken, follow-up with GI as an outpatient. UTI, concerning for right pyelonephritis On admission she had a UA with positive nitrates, leukocyte esterase, white blood cells, and 2+ bacteria, UCx was positive for mixed organisms. She has had new onset abdominal pain, right flank pain, and mild dysuria, Was initially treated with doxycycline for cellulitis as below, however given her picture concerning for UTI have discontinued doxycycline and converted her over to ceftriaxone 1 g for UTI coverage completed 3 days of IV antibiotics to be discharged on Bactrim as above. Panniculitis - She is diffusely tender in her pannus without signs of infection, suspect chronic underlying panniculitis 2/2 chornic high dose insulin injections. CT shows collaborating superficial tissue/subQ fat thickening. No traumatic cause. Differential could include vacular vs infectious deposition in origin. Will follow clinically with tx as below, but could consider biopsy for characterization if she does not improve.Trial naproxen BID, she is diabetic but her kidney function remains stable so will trial cautiously for inflammation at this time. No signs of acute infection, will defer to PCP for further management, consider BMP to assess kidney function Hypokalemia, resolved Replete electrolytes as indicated, trend with BMPs, on discharge letter lites within normal limits Type 2 diabetes mellitus insulin-dependent Placed on insulin sliding scale on admit, glucose well controlled in low 100s on SSI. Continue SSI, glucose checks AC/HS, resume home medication on discharge Hyperlipidemia Continue atorvastatin 40 mg Continue aspirin 81 mg every morning Hypertension Lasix held in the setting of hypokalemia, does not appear fluid overloaded at this time resumed on discharge Given patient's hypertension and diabetes would benefit from an JOHN/ARB but does not appear to be on this HOSTESS HOST and patient is a poor historian. Will defer to PCP for further consideration Depression Topiramate twice daily, trazodone nightly continue bupropion Dispo: Discharged home today Total Time Total Time Spent Total Time Spent (In Minutes): >30 Discharge Plan Discharge Items Patient Disposition: Home - Self-Care Reason For Visit: FOR COLONOSCOP - CELLULITIS Discharge Diagnosis: Cellulitis Condition: Good Discharge Goals: Therapeutic intervention Activity: As commented below Non-emergency contact: Primary Care Provider Call non-emergency contact if: your temperature is above 101.5 Follow-up/Referrals: Vickie Stearns CRNP [Primary Care Provider] - Diet: Carb Consistent or DM2 and Heart Healthy Addtl Provider Instructions: Care instructions: You were admitted to [facility] for treatment of cellulitis. A discharge summary will be sent to your primary care physician to ensure continuity of care.Please bring this discharge summary with you to your next office appointment so that your provider can review it at that time.Continue all medications as prescribed. Continue to drink plenty of clear liquids. Follow- up with your primary care physician as soon as possible. Also follow-up with your messenger floorperson as soon as possible to have the colonoscopy. There were abnormalities noted on the CAT scan which will require a gastroenterology follow-up. Return to the emergency department if symptoms change worsen or the need arises. Please complete a 7-day antibiotic course, today is day 3 of 7. Please obtain Bactrim from your pharmacy, a prescription has been sent to them, and continue taking for 4 days as prescribed. you medications were sent to [facility] in [place] Follow-up appointments: - Keep all your follow-up appointments as already scheduled. If you cannot make an appointment, notify your provider. - Please call to request a follow-up appointment with your primary care physician within one week of discharge. Please let us know if you are unable to obtain an appointment Follow-up labs: - Please go to a lab nearest you and obtain the requested lab work. Please have this completed at least 3 hours before your doctor\[id number] appointment (or the day before your appointment if possible). Medications: - Your medication list has been reviewed and reconciled upon discharge to ensure accuracy and continuity of care. - You are provided with a list of all your current medications at this time. Please review this list closely and make note of any changes. - Please take all of your medications exactly as prescribed. - Tell your primary care provider if you cannot afford your medications. - Call your primary care provider if you are having any side effects or any other problems. - Call your primary care provider before taking any over the counter medications or supplements, including herbals and vitamins, because some of these may interact with your current medications and/or make your symptoms worse. Symptoms: Please call your primary care provider for symptoms including, but not limited to: fevers (temperatures greater than 100.4), chills, intractable nausea or vomiting, diarrhea, rash, shortness of breath, bleeding, pain, or if you experience any worsening of the symptoms that brought you to the hospital. For EMERGENCY and VERY SERIOUS health-related issues, such as chest pain, shortness of breath, or sudden onset of the symptoms that brought you to the hospital, you may need to call 911 or go directly to the Emergency Room It has been our privilege to take care of you during your hospital stay. And Above All Else Fell Better! Best Wishes, Yamil Dixon MD PGY1 Resident, Family & Community Medicine [facility] at [facility] - [address], [address] MC: [address] [place] [address], [place] [address] Prescriptions: New naproxen 250 mg Tablet 250 mg PO BID PRN (Reason: pain) 30 Days Qty: 1 RF: 0 sulfamethoxazole-trimethoprim [Bactrim DS] 800-160 mg tablet 1 tab PO BID 4 Days Qty: 8 RF: 0 Continued potassium chloride 10 mEq tablet extended release 10 meq PO DAILY Qty: 90 RF: 0 methenamine hippurate 1 gram tablet 1 g PO DAILY Qty: 30 RF: 0 multivitamin Tablet 1 tab PO QAM RF: 0 furosemide 40 mg Tablet 40 mg PO QAM RF: 0 atorvastatin 40 mg Tablet 40 mg PO HS RF: 0 cetirizine 10 mg Tablet 10 mg PO QAM RF: 0 ondansetron HCl 4 mg Tablet 4 mg PO Q6 PRN (Reason: Nausea) RF: 0 cyanocobalamin (vitamin B-12) [Vitamin B-12] 1,000 mcg Tablet 1,000 mcg PO QAM RF: 0 aspirin 81 mg Tablet,Delayed Release (Dr/Ec) 81 mg PO QAM RF: 0 trazodone 100 mg Tablet 200 mg PO HS RF: 0 meclizine 25 mg Tablet 25 mg PO TID RF: 0 Novolog U-100 Insulin aspart 100 unit/mL Solution 40 unit SUBCUT BIDM RF: 0 metformin 1,000 mg Tablet 1,000 mg PO BID RF: 0 ranitidine HCl 150 mg Tablet 150 mg PO BID RF: 0 ibuprofen 200 mg Tablet 200 mg PO Q6H PRN (Reason: Pain) RF: 0 docusate sodium 100 mg Capsule 100 mg PO QAM RF: 0 topiramate 200 mg Tablet 200 mg PO BID RF: 0 ergocalciferol (vitamin D2) 50,000 unit Capsule 50,000 unit PO WK RF: 0 albuterol sulfate [ProAir HFA] 90 mcg/actuation Hfa Aerosol Inhaler 2 puff INHALATION Q6H PRN (Reason: Shortness Of Breath) RF: 0 bupropion HCl 200 mg Tablet Sustained-Release 12 Hr 200 mg PO BID RF: 0 trospium 20 mg Tablet 20 mg PO BID RF: 0 Tresiba FlexTouch U-200 200 unit/mL (3 mL) Insulin Pen 76 unit SUBCUT QAM RF: 0 Stand-Alone Forms: My [facility], Important Visit Information Krames/Other Patient Handouts: Diabetes Healthy Meals, Diabetes Carbs, Diabetes Meal Planning, Diabetes Type 2, ED UTI Cystitis Female Discharge Orders: Discharge Order (Routine); Ordered 07/31/18 Ordered By: Yamil Dixon Admission Data Admit Date/Time: 07/29/18 15:56 Attending Provider: Dami Ovalle Admit Provider: Giacomo Lovelace Primary Care Provider: Vcikie Stearns Other Providers: Jayna Dixon ; Chino Santiago ; Home,Nursing Agency Service: Medical Other Interventions: Discharge Summary Assessment (RN) Last Done: 07/31/18 12:20 DC Date/Time DO NOT enter until pt leaves facility: 07/31/18 14:40 Supervising Physician Co-Signing Physician Notes Patient seen and examined with Dr. Dixon. Agree with history, exam findings, assessment and plan as outlined below. In brief, Ms Yang is a 73 year old female admitted for colonoscopy. She was to have this done as an outpatient but was febrile and was sent to the ED for further evaluation by GI and inpatient colonoscopy for proctitis. Her colonoscopy was relatively benign. However, she continues to complain of diffuse discomfort in the pannus and right flank areas. She is diffusely tender in the panus area. The skin is woody in texture, but there is no erythema, satellite lesions or skin breakdown. She continues to have pain to palpation over the lower ribs in the right flank. Pain does not change between palpation and CVA percussion. Urine was contaminated with multiple organisms. Likely her anterior abdominal pain seems to be from the pannus. ?chronic panniculitis. No evidence of infection at this point. CT findings consistent with inflammation of the subq tissue. NSAIDs, warm compresses. ?urinary tract infection vs pyelo. She is on ceftriaxone. Will continue then transition her to Bactrim today. Discussed with patient that her imaging and labs here have been reassuring and that the oral medications and care at this point can be done at home. She does have a ride home (daughter is home today... is currently hospitalized at [facility]). Dipso: Discharge home today. Advised follow up with PCP next week. I personally spent 35 minutes discharge planning for this patient. Resident Activity Tracking Resident Involvement: Resident Care Provided Care Provided: Adult Hospital Medicine
[2018-07-31] MEDS: cefTRIAXone SODIUM 1,000 MG in DEXTROSE 5% 50 ML IV SCH (12:49)
--- NOTE | 2018-08-03 08:03 | Progress Note ---
DATE: 07/30/2018 RACE: . HISTORY OF PRESENT ILLNESS: I had the pleasure of seeing Noemi at her bedside today. She still complains of abdominal pain, bilateral lower quadrants, as well as right-sided flank pain which she describes as 4/10 in intensity, chronic, without alleviating or exacerbating factors. She does state too that she becomes lightheaded at times and cannot explain further details of this phenomenon. She denies any hematemesis, melena, hematochezia. She further denies any fevers, chills, nausea, or vomiting. REVIEW OF SYSTEMS: Negative x10 system review other than pertinent positives listed in the HPI. PHYSICAL EXAMINATION: VITAL SIGNS: Temp 36.7, pulse 74, respirations 20, blood pressure 162/69, pulse ox 95% on room air. GENERAL: She is chronic ill appearing, in no acute distress. CHEST: Clear to auscultation bilaterally. CARDIOVASCULAR SYSTEM: Regular rate and rhythm. ABDOMEN: Soft, tender in the bilateral lower quadrants, nondistended. There are positive bowel sounds. There is no appreciable hepatosplenomegaly. EXTREMITIES: No clubbing, cyanosis, or edema. The cellulitis of her left lower extremity appears improved. LABORATORY STUDIES: Include a CBC which was normal. IMPRESSION: A 73-year-old female with abnormal CT imaging of the rectum who underwent colonoscopy yesterday with biopsies in the rectum, small internal hemorrhoids, and poor bowel prep. PLAN: The patient did have a colonoscopy yesterday with biopsies that were normal and showed no evidence of acute or chronic proctitis. I would recommend that the patient be continued on her current medical regimen including ranitidine 150 mg p.o. b.i.d. as well as a p.r.n. Zofran. Clearly there is no evidence of proctitis and I will defer to the primary team regarding further medical management. I will sign off at this time. If you have any further questions, please do not hesitate in contacting me. CULLEN
== END 2018-07-31 14:40 | disposition home health service (06) | DRG 603 ==
LOC: ED 15:40 → 4E 15:40 → SUATTDRO 07-29 15:56

== ENCOUNTER 2019-08-09 13:45 | Inpatient (IN) ==
[2019-08-09] MEDS ORDERED: SODIUM CHLORIDE 0.9% 500 ML IV SCH (15:15)
--- NOTE | 2019-08-09 15:19 | Emergency Department Note ---
Impression & Plan Acute confusion, Tachycardia, Acute dehydration, Acute hyponatremia, Hypokalemia, Prolonged QT interval, Acute UTI ED Provider Note NAME: ASH BLACKWELL AGE: 74 SEX: F : 1945 ARRIVES VIA: Walk-In INFORMANT: [Patient][ems, nurses] ED PROVIDER(S): [Manish Patel MD] CHIEF COMPLAINT: Confusion HISTORY OF PRESENT ILLNESS: The patient is a 74-year-old female with dementia. She was seen in this ED on the , less than a week ago. Work-up did not show anything concerning to explain her symptoms of abdominal pain. She did have a urine culture that subsequently grew out E. coli, 100,000. The patient was seen via a virtual visit the following day by the family doctor's office, they were concerned that she might require placement as she has dementia and is having a very difficult time at home and there was concern for safety at home. The patient presents today for increasing confusion. The family is convinced she is not safe at home and they are no longer able to care for her as they have. Home health has been involved but, apparently, she tells the home health worker she has a coronavirus and they will not come into the house. The patient does not have coronavirus. The patient is a very poor historian, there was no one else at the bedside. The patient states that she just does not feel well but cannot say exactly how. She states that she has abdominal pain and points across her entire abdomen. When asked if she is taking her medications, she says no, she cannot answer why. She does deny any chest pain or shortness of breath. She has not been vomiting or having diarrhea. She denies urinary complaints. Given the dementia, no further history obtainable. REVIEW OF SYSTEMS: Unobtainable given her dementia. PMHx/PSHx: See Below SOCIAL HISTORY: See Below. PHYSICAL EXAM: GENERAL: Patient is in no acute distress. HEENT: No acute trauma, normocephalic atraumatic, mucous membranes moist, no nasal congestion, no scleral icterus. NECK: No stridor, no adenopathy, no meningismus, trachea is midline. LUNGS: Clear to auscultation bilaterally, no wheeze, no rhonchi, breath sounds equal. HEART: Without murmurs gallops or rubs, regular rate and rhythm. ABDOMEN: Soft, nontender, bowel sounds positive, no hernias, no peritonitis. EXTREMITIES: No cyanosis or edema, full range of motion of all the joints without pain or difficulty, no signs for acute trauma. NEUROLOGIC: Awake and alert, moves all extremities, seems confused consistent with her diagnosed dementia. No cerebellar deficits or pronator drift. No spe ech slur. SKIN: No rash, no jaundice, no diaphoresis. DIFFERENTIAL DIAGNOSIS: Infection, dehydration, metabolic abnormality, hypo/hyperglycemia, dementia, failed outpatient management, electrolyte disturbance, anemia, hypoxia, cardiac sources, intracerebral event, toxicologic, neurologic, as well as other pathologies. EMERGENCY DEPARTMENT COURSE/PROCEDURES: ECG: Indication was tachycardia and weakness. The EKG shows sinus tachycardia with a right bundle branch block. There are PACs present. The rate is 110. The QTc is 657, significantly prolonged. There is no ST elevation, no PVCs. Compared to an EKG from 22 January 2019, the rate has increased, the QTC has increased. Repeat EKG: Indication was chest pain. There is a sinus tachycardia with a right bundle branch block. The rate is 103. The QTc is prolonged at 518, there are no PACs or PVCs. There is some nonspecific ST change. Compared to the EKG from earlier today, the QTC has decreased. Continuous Cardiac Monitoring: An order was placed for continuous cardiac monitoring. The monitor shows a rate of 99 with sinus rhythm with PACs. Critical Care Note: I have personally spent greater than 33 minutes of critical care time in the direct management of this patient. This includes bedside care, interpretation of diagnostic studies, and testing, discussion with consultants, patient, and family members, and other required patient management activities. This 33 minutes is in excess of all separately billable procedures. MEDICAL DECISION MAKING: There is a mild leukocytosis, this could be consistent with infection or the stress of the patient's presentation. No anemia. She has a normal platelet count. Renal panel testing shows some renal insufficiency/dehydration. She has a lower sodium and a lower potassium. No worrisome liver enzyme elevation. The patient appeared to be in a euthyroid state. EKG shows a sinus tachycardia with a right bundle branch block. There is a prolonged QT interval. No acute ischemic change by EKG. Cardiac enzyme testing x1 is not consistent with acute cardiac injury. On exam, the patient had no focal neurologic deficits. I did review the CT imaging of the brain and abdomen from her last visit just a few days ago, there was no acute finding. Her urine did grow E. coli, greater than 100,000. The patient received IV saline for hydration. She was given IV potassium. She received IV ceftriaxone for the positive urine culture from her last ED visit. She very likely does have a UTI. The patient presents with increasing confusion. Her family can no longer care for her. She does have several findings on her work-up that warrant further care and I think a hospital stay. She will eventually likely require placement. I am concerned the patient is not taking her medications as prescribed. She may be taking too much of one medication, not enough of another. She needs her electrolytes replaced. She needs hydration. Her urine infection requires antibiotic therapy. I did speak to the patient, case management has been involved. The on-call hospitalist has been consulted. Past Med/Surg History Medical History Allergic rhinitis (Resolved) Anxiety (Chronic) Constipation Dementia Depression (Chronic) Diabetes mellitus type 2, uncontrolled (Chronic) Diabetic peripheral neuropathy associated with type 2 diabetes mellitus (Chronic) Dyslipidemia (Chronic) Gastroparesis (Chronic) History of orthostatic hypotension (Resolved) Hypercalcemia (Acute) Hypertension (Chronic) Impairment of cognitive function (Chronic) Laryngopharyngeal reflux (Chronic) Liver lesion 1.1 cm right hepatic dome lesion in the setting of cirrhosis appearance on MRI 02/2019, possible hepatocellular CA Macular degeneration (Chronic) Migraines Mild persistent asthma (Chronic) Morbid obesity (Chronic) Multiple thyroid nodules (Chronic) Recurrent UTI Sleep apnea (Chronic) Synovial cyst of popliteal space (Deleted) Urge incontinence of urine (Chronic) Vertigo (Resolved) Vitamin B12 deficiency (Chronic) Vitamin D deficiency (Chronic) Surgical History History of cholecystectomy (Resolved) History of colonoscopy History of tonsillectomy (Resolved) History of tooth extraction (Resolved) all teeth History of total hysterectomy with bilateral salpingo-oophorectomy (BSO) (Resolved) Family History Daughter Family history of reaction to anesthesia vomiting Brother Family history of diabetes mellitus Sister Family history of diabetes mellitus Mother Family history of diabetes mellitus Hypertension Grandmother (Maternal) Family history of diabetes mellitus Heart disease Aunt Throat cancer Father Family history of diabetes mellitus Other Breast cancer Denies family history of Ovarian cancer Colorectal cancer Social History Preferred Language: Albanian Communication Ability: Effective Communication Ability Comment: dementia Visual Impairment: Limited Hearing Ability: Normal Trim Mechanic Required: No Beliefs That Will Affect Care: None marital status: Current Living Situation: Family Current Living Situation Comment: at home with daughter current occupational status: retired Feels Safe at Home: Yes and No Is there a partner from a previous relationship who is making you feel unsafe now?: No Smoking Status: Unknown if ever smoked Hx Alcohol Use: No Hx Substance Use: No Physical Activity Frequency: Does not Exercise Seatbelt Use: always Sunscreen Use: Yes Allergies Allergies Allergy/AdvReac Type Severity Reaction Status Date / Time No Known Allergies Allergy Verified 05/18/19 08:13 Home Meds Home Medications Medication Instructions Recorded Confirmed potassium chloride 10 mEq 10 meq PO QAM #90 tab 07/22/18 08/09/19 tablet,extended release citalopram 20 mg tablet 20 mg PO QAM 10/04/18 08/09/19 aspirin 81 mg tablet,delayed 81 mg PO QAM 10/10/18 08/09/19 release multivitamin 1 tab PO QDL 10/10/18 08/09/19 Linzess 72 mcg PO QAM 12/30/18 08/09/19 Tresiba FlexTouch U-200 80 units SUBCUT QAM 12/30/18 08/09/19 cholecalciferol (vitamin D3) 25 1,000 unit PO Q OTHER DAY tab 02/10/19 08/09/19 mcg (1,000 unit) tablet insulin aspart U-100 100 unit/mL See Rx Instructions SUBCUT BID 02/10/19 08/09/19 subcutaneous solution methenamine hippurate 1 g PO BID 08/09/19 08/09/19 nitrofurantoin macrocrystal 50 mg PO DAILY 08/09/19 08/09/19 Previous Rx's Medication Instructions Recorded atorvastatin 40 mg tablet 40 mg PO HS #90 tab 11/10/18 furosemide 40 mg tablet 40 mg PO QAM #90 tab 11/12/18 OneTouch Ultra Blue Test Strip #300 ea NS 11/18/18 nystatin 100,000 unit/gram topical 1 appln TOP TID #30 gm 01/03/19 powder pen needle, diabetic 31 gauge x #400 ea 02/11/19 3" metformin 1,000 mg tablet 1,000 mg PO BID #60 tab 04/05/19 docusate sodium 100 mg capsule 100 mg PO QAM #30 cap 05/06/19 fluticasone propionate 50 2 sprays INTNAS DAILY PRN #18.2 ml 07/01/19 mcg/actuation nasal spray,suspension insulin syringe-needle U-100 1 mL #200 ea 07/06/19 31 gauge x 07/22" pantoprazole 40 mg tablet,delayed 40 mg PO BID #180 tab 07/07/19 release trospium 20 mg tablet 20 mg PO BID #180 tab 07/25/19 meclizine 25 mg tablet 25 mg PO TID PRN #60 tab 08/02/19 Results & Data (ED) Vital Signs Vital Signs - 24 hr 08/09/19 14:01 08/09/19 15:45 08/09/19 16:09 Temperature 36.7 C Temperature Source Oral Pulse Rate 113 H Pulse Rate [Apical] 106 H Respiratory Rate 20 20 Blood Pressure 149/101 H Blood Pressure [Right Arm] 165/94 H Blood Pressure Mean 117 Blood Pressure Mean [Right Arm] 117 Pulse Oximetry 94 91 91 Oxygen Delivery Method Room Air Room Air Room Air Sepsis Recent Fever Within 48 Hours No Sepsis New/Unexplained Change in Mental Status No Sepsis Action Taken by Nursing No Action Required Home Medications Current Medication List: was personally reviewed by me Laboratory Data Attestation: I reviewed the patient's lab results. Result diagrams: 08/09/19 15:58 08/09/19 15:58 Lab Results 08/09/19 08/09/19 Range/Units 15:58 15:58 WBC 11.78 H (4.8-10.8) K/uL RBC 5.25 (4.2-5.4) M/uL Hgb 15.5 (12.0-16.0) g/dL Hct 44.6 (37-47) % MCV 85.0 (80-100) fL MCH 29.5 (25-34) pg MCHC 34.8 (32-36) g/dL RDW Std Deviation 40.5 (36.4-46.3) fL RDW Coeff of Misha 13.3 (11.5-14.5) % Plt Count 361 (130-400) K/uL MPV 9.6 (7.4-10.4) fL Immature Gran % (Auto) 0.4 % Neut % (Auto) 75.8 % Lymph % (Auto) 16.6 % Craig % (Auto) 6.5 % Eos % (Auto) 0.3 % Baso % (Auto) 0.4 % Immature Gran # (Auto) 0.05 H (0.00-0.02) K/uL Neut # (Auto) 8.93 H (1.4-6.5) K/uL Lymph # (Auto) 1.95 (1.2-3.4) K/uL Craig # (Auto) 0.76 H (0.11-0.59) K/uL Eos # (Auto) 0.04 (0-0.5) K/uL Baso # (Auto) 0.05 (0-0.2) K/uL Sodium 131 L (136-145) mmol/L Potassium 3.0 L (3.5-5.1) mmol/L Chloride 93 L (98-107) mmol/L Carbon Dioxide 26 (21-32) mmol/L Anion Gap 13.0 H (3-11) BUN 24 H (7-18) mg/dl Creatinine 1.23 H (0.6-1.2) mg/dl Est Cr Clr Drug Dosing 42.6 ml/min Est GFR ( Amer) 50.7 Est GFR (Non-Af Amer) 43.8 BUN/Creatinine Ratio 19.3 (10-20) Glucose 183 H (70-99) mg/dl Calcium 10.3 H (8.5-10.1) mg/dl Magnesium 2.2 (1.8-2.4) mg/dl Total Bilirubin 0.7 (0.2-1) mg/dl AST 19 (15-37) U/L ALT 31 (12-78) U/L Alkaline Phosphatase 94 (45-117) U/L Troponin I < 0.015 (0-0.045) ng/ml Total Protein 7.9 (6.4-8.2) gm/dl Albumin 4.0 (3.4-5.0) gm/dl Globulin 3.9 (2.5-4.0) gm/dl Albumin/Globulin Ratio 1.0 (0.9-2) TSH 0.756 (0.300-4.500) uIu/ml Administered Medications Atorvastatin Calcium (Lipitor) 40 mg PO HS CRISSY Stop: 09/08/19 20:59 Last Admin: 08/09/19 22:06 Dose: 40 mg Documented by: [id number] Docusate Sodium (Colace) 100 mg PO BID CRISSY Stop: 09/08/19 20:59 Last Admin: 08/09/19 22:03 Dose: 100 mg Documented by: [id number] Enoxaparin Sodium (Lovenox) 40 mg SQ Q24H CRISSY Stop: 09/08/19 21:29 Last Admin: 08/09/19 22:07 Dose: 40 mg Documented by: [id number] Gadobutrol (Gadavist 65ml) 8.8 ml IV ONCE PRN PRN Reason: Interaction Checking Stop: 08/13/19 21:31 Last Admin: 08/09/19 21:32 Dose: 8.8 ml Documented by: [id number] Potassium Chloride/Sodium Chloride (Normal Saline W/20 Meq Kcl) 20 meq in 1,000 mls @ 75 mls/hr IV .[id number] [facility] Stop: 08/10/19 08:23 Last Admin: 08/09/19 21:58 Dose: 75 mls/hr Documented by: [id number] Insulin Aspart (Novolog Flexpen) 0 units SC ACHS CRISSY Stop: 09/08/19 20:59 Last Admin: 08/09/19 22:07 Dose: 3 units Documented by: [id number] Cosigned by: [id number] Methenamine Hippurate (Urex) 1 gm PO BID CRISSY Stop: 09/08/19 20:59 Last Admin: 08/09/19 22:01 Dose: 1 gm Documented by: [id number] Miscellaneous (Order Awaiting Action) 1 ea N/A QS CR[facility] Stop: 09/09/19 00:00 Last Admin: 08/09/19 23:17 Dose: Not Given Documented by: [id number] Miscellaneous (Order Awaiting Action) 1 ea N/A QS [facility] Stop: 09/09/19 00:00 Last Admin: 08/09/19 23:17 Dose: Not Given Documented by: [id number] Pantoprazole Sodium (Protonix) 40 mg PO BID CRISSY Stop: 09/08/19 20:59 Last Admin: 08/09/19 22:06 Dose: 40 mg Documented by: [id number] Sennosides (Senokot) 17.2 mg PO HS CRISSY Stop: 09/08/19 20:59 Last Admin: 08/09/19 22:03 Dose: 17.2 mg Documented by: [id number] Discontinued Medications Sodium Chloride (Nss) 500 mls @ 999 mls/hr IV .Q31M CR[facility] Stop: 08/09/19 15:45 Last Infusion: 08/09/19 18:56 Dose: 0 mls/hr Documented by: [id number] Admin: 08/09/19 16:08 Dose: 999 mls/hr Documented by: [id number] Ceftriaxone Sodium (Rocephin) 1,000 mg in 50 mls @ 100 mls/hr IV NOW STA Stop: 08/09/19 15:52 Last Infusion: 08/09/19 18:56 Dose: 0 mls/hr Documented by: [id number] Admin: 08/09/19 16:08 Dose: 100 mls/hr Documented by: [id number] Potassium Chloride (K Jarred / Wtr) 10 meq in 100 mls @ 100 mls/hr IV ONE ONE Stop: 08/09/19 18:03 Last Infusion: 08/09/19 18:55 Dose: 0 mls/hr Documented by: [id number] Admin: 08/09/19 17:44 Dose: 100 mls/hr Documented by: [id number] Sodium Chloride (Nss 1000ml) 500 mls @ 999 mls/hr IV .Q31M ONE Stop: 08/09/19 17:34 Last Infusion: 08/09/19 18:56 Dose: 0 mls/hr Documented by: [id number] Admin: 08/09/19 17:44 Dose: 999 mls/hr Documented by: [id number] Potassium Chloride (Klor-Con M20) 40 meq PO NOW STA Stop: 08/09/19 20:34 Last Admin: 08/09/19 22:02 Dose: 40 meq Documented by: [id number] Blood Pressure Blood Pressure Findings: Elevated blood pressure Blood Pressure Disposition: further management by hospitalist Discharge Plan Visit Data *Final* Discharge Date/Time: 08/09/19 19:54 Chief Complaint: Illness Stated Complaint: UPSET STOMACH,DIZZINESS,SHAKINESS ED Provider: Manish Patel Discharge Problem: Acute confusion, Tachycardia, Acute dehydration, Acute hyponatremia, Hypokalemia, Prolonged QT interval, Acute UTI Patient Disposition: Admitted As Inpatient Condition: Fair Discharge Instructions Interventions: ED Discharge Assessment Last Done: 08/09/19 19:54
[2019-08-09] MEDS ORDERED: cefTRIAXone SODIUM 1,000 MG/50 ML BAG IV STA (15:23)
[2019-08-09 16:24] LABS: Basophils # (auto) 0.05 K/uL (0-0.2); Basophils % (auto) 0.4 %; Eosinophils # (auto) 0.04 K/uL (0-0.5); Eosinophils % (auto) 0.3 %; Hematocrit (blood only) 44.6 % (37-47); Hemoglobin 15.5 g/dL (12.0-16.0); Immature Granulocytes # (auto) 0.05 K/uL (0.00-0.02); Immature Granulocytes % (auto) 0.4 %; Lymphocytes # (auto) 1.95 K/uL (1.2-3.4); Lymphocytes % (auto) 16.6 %; Mean Corpuscular Hemoglobin 29.5 pg (25-34); Mean Corpuscular Hgb Conc 34.8 g/dL (32-36); Mean Platelet Volume 9.6 fL (7.4-10.4); Monocytes # (auto) 0.76 K/uL (0.11-0.59); Monocytes % (auto) 6.5 %; Neutrophils # (auto) 8.93 K/uL (1.4-6.5); Neutrophils % (auto) 75.8 %; Platelet Count 361 K/uL (130-400); RDW Coefficient of Variation 13.3 % (11.5-14.5); RDW Standard Deviation 40.5 fL (36.4-46.3); Red Blood Count 5.25 M/uL (4.2-5.4); White Blood Count 11.78 K/uL (4.8-10.8)
[2019-08-09 16:44] LABS: Alanine Aminotransferase 31 U/L (12-78); Aspartate Aminotransferase 19 U/L (15-37); BUN Creatinine Ratio 19.3 (10-20); Blood Urea Nitrogen 24 mg/dl (7-18); Calcium 10.3 mg/dl (8.5-10.1); Carbon Dioxide 26 mmol/L (21-32); Chloride 93 mmol/L (98-107); Creatinine Clr Calc Pharmacy 42.6 ml/min; Est GFR (African American) 50.7; Est GFR (Non-African American) 43.8; Glucose 183 mg/dl (70-99); Magnesium 2.2 mg/dl (1.8-2.4); Sodium 131 mmol/L (136-145)
[2019-08-09 16:55] LABS: Alkaline Phosphatase 94 U/L (45-117); Bilirubin,Total 0.7 mg/dl (0.2-1); Globulin 3.9 gm/dl (2.5-4.0); Thyroid Stimulating Hormone 0.756 uIu/ml (0.300-4.500); Total Protein 7.9 gm/dl (6.4-8.2); Troponin I < 0.015 ng/ml (0-0.045)
[2019-08-09] MEDS ORDERED: SODIUM CHLORIDE 0.9% 1000ML 500 ML IV ONE (17:04)
[2019-08-09] MEDS ORDERED: POTASSIUM CHLORIDE / WTR 10 MEQ/100 ML PLCT IV ONE (17:04)
[2019-08-09] MEDS ORDERED: NSS + 20MEQ KCL 20 MEQ/1,000 ML BAG IV SCH (19:04)
--- NOTE | 2019-08-09 19:06 | History & Physical Report ---
Date of Service August 09, 2019 Assessment & Plan (1) Acute metabolic encephalopathy: This patient is a 74-year-old female with a history of HTN, uncontrolled DM 2 with neuropathy, hyperlipidemia, dementia, obesity, and major depressive disorder with anxiety, early cirrhosis with liver mass, and chronic constipation who comes from home where she lives with her intellectually disabled daughter with worsening confusion and inability to take care of herself. Her other daughter, Mer, is the one that brought her to the ER stating that she was very concerned for her mother's safety and that she had been having worsening confusion especially in the last few days, at times staring off into space and not responding to questions. The patient was seen here in the ER on 08/02 for similar complaints but was also stating she had abdominal pain. She had a work- up at that time including a CT of the abdomen/pelvis which was fairly unremarkable, however after discharge, she was found to have a UTI with E. coli growing on the culture. It was unclear if this was a symptomatic UTI or not and therefore it is noted that she would not be treated with antibiotics. She has not had any documented fevers at home. The patient tells me that she does have pain and points to the suprapubic region and also pain in the rectum. She cannot recall the last time she had a bowel movement. Her daughter tells me on the phone that she has not had a bowel movement in at least 2 days. The patient tells me that she has not felt like eating or drinking much and her chemistry panel here is consistent with dehydration. Her daughter is also concerned that she is either not taking her medications at all or is taking too many of them. Acute metabolic encephalopathy-could be secondary to UTI versus constipation especially in the setting of early cirrhosis. Ammonia level was not drawn, but not necessary as bowel regimen is needed regardless. She is also mildly dehydrated with tachycardia, mildly increased creatinine, hyponatremia, and hypokalemia -Will admit to medical floor with telemetry -Give IV fluids for hydration and replace electrolytes with potassium chloride -Treat UTI as below with antibiotics -We will check brain MRI to rule out stroke or other intracranial process causing progressively worsening confusion -Increase bowel regimen to MiraLAX daily, increase docusate to twice daily, and add on senna-consider lactulose if these are not helping by tomorrow -Supportive care and observe for improvement (2) Acute dehydration: As above, she has not been eating or drinking much on her own volition at home -Give IV fluids -Follow BMP (3) Acute hyponatremia: Likely secondary to dehydration, sodium 130 on admission -Giving IV fluids and holding home furosemide -Follow BMP in the morning (4) Hypokalemia: Likely secondary to poor p.o. intake -Was given potassium chloride 10 mEq IV x1 in the ER -We will give another 40 mEq p.o. potassium chloride now and then continue her home daily 10 mEq in the morning -Follow BMP, magnesium level in the morning (5) Prolonged QT interval: QTC was greater than 600 on admission but this may be secondary to some ectopy that was noted Repeat ECG a few hours later was much improved with QT C down to 510 -Follow on telemetry -Replace electrolytes as above Follow ECG in the morning (6) Acute UTI: With multiple recurrent UTIs, all with the same E. coli organism that is resistant to nitrofurantoin and Bactrim Follows with urology and is on daily nitrofurantoin for prophylaxis which would not prevent this particular organism -Continue methenamine but will hold nitrofurantoin while on ceftriaxone -Continue IV ceftriaxone and switch to p.o. Keflex likely in the next day or 2 when taking p.o. reliably -Follow-up with urology as an outpatient (7) Anxiety: Continue home citalopram Worsening lately in the setting of encephalopathy as above (8) Dementia: Listed as a diagnosis in her chart, unclear if this has been formally diagnosed with neuropsychological testing -Offer supportive care -Is currently needing a one-on-one sitter in the room (9) Abdominal pain: Possibly secondary to constipation versus UTI -Treating for constipation and UTI as above -Follow CT abdomen and pelvis just several days ago without significant findings that would explain pain Her abdomen is nice and soft on examination (10) Constipation: Had recent anorectal manometry testing which showed type III dyssynergic defecation -Continue Linzess from home if can be brought in if not available here -Increased docusate to twice daily -Added on senna and MiraLAX daily as above -Consider lactulose (11) Hypercalcemia: Very mildly elevated at 10.3 Vitamin D supplementation was recently discontinued as her level is in the 40s No further treatment at this time (12) Liver lesion: Has a known liver lesion and was due for repeat MRI of the liver this coming Emery Daughter is requesting that this be performed in the hospital-I advised her that this can remain an outpatient test but will be left to the discretion of the rounding day team (13) Diabetic peripheral neuropathy associated with type 2 diabetes mellitus: Hold home metformin -NovoLog sliding scale and replace home Tresiba with Lantus here at any equivalent dose Recent hemoglobin A1c well controlled at 6.1% -Given cognitive impairment, I have great concern that she is able to manage insulin herself at home -Follows with endocrinology (14) Sleep apnea: Noted as a diagnosis in the chart Unclear if she is on CPAP (15) Morbid obesity: BMI 35 Needs weight loss (16) Mild persistent asthma: Not on any home inhalers for this No acute issues at this time (17) Hypertension: Stable -Holding home Lasix while dehydrated (18) Dyslipidemia: Continue statin, aspirin (19) Multiple thyroid nodules: Followed by endocrinology TSH here is normal (20) Depression: Continue home Celexa (21) DVT prophylaxis: Lovenox SQ, SCDs Disposition-admit to medical floor with telemetry PT/OT evaluations requested Case management consultation placed She will likely need rehab placement History of Present Illness Chief Complaint: Confusion, not safe at home Primary Care Provider: Emeterio Beck MD This patient is a 74-year-old female with a history of HTN, uncontrolled DM 2 with neuropathy, hyperlipidemia, dementia, obesity, and major depressive disorder with anxiety, early cirrhosis with liver mass, and chronic constipation who comes from home where she lives with her intellectually disabled daughter with worsening confusion and inability to take care of herself. Her other daughter, Mer, is the one that brought her to the ER stating that she was very concerned for her mother's safety and that she had been having worsening confusion especially in the last few days, at times staring off into space and not responding to questions. The patient was seen here in the ER on 08/02 for similar complaints but was also stating she had abdominal pain. She had a work- up at that time including a CT of the abdomen/pelvis which was fairly unremarkable, however after discharge, she was found to have a UTI with E. coli growing on the culture. It was unclear if this was a symptomatic UTI or not and therefore it is noted that she would not be treated with antibiotics. She has not had any documented fevers at home. The patient tells me that she does have pain and points to the suprapubic region and also pain in the rectum. She cannot recall the last time she had a bowel movement. Her daughter tells me on the phone that she has not had a bowel movement in at least 2 days. The patient tells me that she has not felt like eating or drinking much and her chemistry panel here is consistent with dehydration. Her daughter is also concerned that she is either not taking her medications at all or is taking too many of them. Review of the chart shows that there have been multiple recent phone calls in to the journeyman pipe welder for difficulties with labile glucose control, as well as for her worsening confusion. Suggestion was made by her PCP for assisted placement. In the ER, she was given a total of 1 L of normal saline and 1 dose of IV Rocephin She will be admitted for acute metabolic encephalopathy, suspected UTI, for further work-up and likely rehab placement. Allergies Allergy/AdvReac Type Severity Reaction Status Date / Time No Known Allergies Allergy Verified 05/18/19 08:13 Home Medications Home Medications Medication Instructions Recorded Confirmed Type potassium chloride 10 mEq 10 meq PO QAM #90 tab 07/22/18 08/09/19 History tablet,extended release citalopram 20 mg tablet 20 mg PO QAM 10/04/18 08/09/19 History aspirin 81 mg tablet,delayed 81 mg PO QAM 10/10/18 08/09/19 History release multivitamin 1 tab PO QDL 10/10/18 08/09/19 History atorvastatin 40 mg tablet 40 mg PO HS #90 tab 11/10/18 08/09/19 Rx furosemide 40 mg tablet 40 mg PO QAM #90 tab 11/12/18 08/09/19 Rx OneTouch Ultra Blue Test Strip #300 ea NS 11/18/18 08/09/19 Rx Linzess 72 mcg PO QAM 12/30/18 08/09/19 History Tresiba FlexTouch U-200 80 units SUBCUT QAM 12/30/18 08/09/19 History nystatin 100,000 unit/gram topical 1 appln TOP TID #30 gm 01/03/19 08/09/19 Rx powder cholecalciferol (vitamin D3) 25 1,000 unit PO Q OTHER DAY tab 02/10/19 08/09/19 History mcg (1,000 unit) tablet insulin aspart U-100 100 unit/mL See Rx Instructions SUBCUT BID 02/10/19 08/09/19 History subcutaneous solution pen needle, diabetic 31 gauge x #400 ea 02/11/19 08/09/19 Rx 3/16" metformin 1,000 mg tablet 1,000 mg PO BID #60 tab 04/05/19 08/09/19 Rx docusate sodium 100 mg capsule 100 mg PO QAM #30 cap 05/06/19 08/09/19 Rx fluticasone propionate 50 2 sprays INTNAS DAILY PRN #18.2 ml 07/01/19 08/09/19 Rx mcg/actuation nasal spray,suspension insulin syringe-needle U-100 1 mL #200 ea 07/06/19 08/09/19 Rx 31 gauge x 07/22" pantoprazole 40 mg tablet,delayed 40 mg PO BID #180 tab 07/07/19 08/09/19 Rx release trospium 20 mg tablet 20 mg PO BID #180 tab 07/25/19 08/09/19 Rx meclizine 25 mg tablet 25 mg PO TID PRN #60 tab 08/02/19 08/09/19 Rx methenamine hippurate 1 g PO BID 08/09/19 08/09/19 History nitrofurantoin macrocrystal 50 mg PO DAILY 08/09/19 08/09/19 History Past Med/Surg History Medical History Allergic rhinitis (Resolved) Anxiety (Chronic) Dementia Depression (Chronic) Diabetes mellitus type 2, uncontrolled (Chronic) Diabetic peripheral neuropathy associated with type 2 diabetes mellitus (Chronic) Dyslipidemia (Chronic) Gastroparesis (Chronic) History of orthostatic hypotension (Resolved) Hypercalcemia (Acute) Hypertension (Chronic) Impairment of cognitive function (Chronic) Laryngopharyngeal reflux (Chronic) Liver lesion 1.1 cm right hepatic dome lesion in the setting of cirrhosis appearance on MRI 02/2019, possible hepatocellular CA Macular degeneration (Chronic) Migraines Mild persistent asthma (Chronic) Morbid obesity (Chronic) Multiple thyroid nodules (Chronic) Recurrent UTI Sleep apnea (Chronic) Synovial cyst of popliteal space (Deleted) Urge incontinence of urine (Chronic) Vertigo (Resolved) Vitamin B12 deficiency (Chronic) Vitamin D deficiency (Chronic) Surgical History History of cholecystectomy (Resolved) History of colonoscopy History of tonsillectomy (Resolved) History of tooth extraction (Resolved) all teeth History of total hysterectomy with bilateral salpingo-oophorectomy (BSO) (Resolved) Family History Daughter Family history of reaction to anesthesia vomiting Brother Family history of diabetes mellitus Sister Family history of diabetes mellitus Mother Family history of diabetes mellitus Hypertension Grandmother (Maternal) Family history of diabetes mellitus Heart disease Aunt Throat cancer Father Family history of diabetes mellitus Other Breast cancer Denies family history of Ovarian cancer Colorectal cancer Social History Preferred Language: Pakistani Communication Ability: Effective Communication Ability Comment: dementia Visual Impairment: Limited Hearing Ability: Normal Subcontracts Manager Required: No Beliefs That Will Affect Care: None marital status: Current Living Situation: Family Current Living Situation Comment: at home with daughter current occupational status: retired Feels Safe at Home: Yes and No Is there a partner from a previous relationship who is making you feel unsafe now?: No Smoking Status: Unknown if ever smoked Hx Alcohol Use: No Hx Substance Use: No Physical Activity Frequency: Does not Exercise Seatbelt Use: always Sunscreen Use: Yes Review of Systems Review of Systems: All systems reviewed & are unremarkable except as noted in HPI & below Denies chest pain or shortness of breath Has a mild headache currently Positive for constipation and lower abdominal pain as per HPI Physical Exam Constitutional: WD/WN, vitals as above + morbidly obese Eyes: PERRL, conjunctivae normal, anicteric sclerae ENMT: external ear and nose normal, oropharynx normal Neck: trachea midline, no thyromegaly Respiratory: normal respiratory effort, lungs clear to auscultation Cardiovascular: Rate/Rhythm: regular rhythm and + tachycardic Heart Sounds: no murmur Vessels: no JVD Extremities: no edema Chest (Breasts): Chest: normal inspection of chest Gastrointestinal (Abdomen): normal bowel sounds, soft, nontender, no hepatosplenomegaly Musculoskeletal: Extremities: extremities normal to inspection; no cyanosis and no clubbing Skin: no rashes, warm and dry Neurologic: moves all extremities and awake; no focal motor deficits Psychiatric: Orientation: alert, oriented to person and cooperative Eye Contact: good eye contact Speech: normal rate/rhythm/volume of speech Judgement: + poor judgement Confused, does not know why she is in the hospital, but does state "I think I am going to be here for a while" Lymphatic: no lymphedema Results & Data Results & Data ([facility]) Vital Signs (Past 12 Hours) Vital Signs Temp Pulse Pulse Resp BP BP Pulse Ox 08/09/19 16:09 106 H 20 165/94 H 91 08/09/19 15:45 91 08/09/19 14:01 36.7 C 113 H 20 149/101 H 94 Laboratory Results 08/09/19 08/09/19 08/09/19 Range/Units 21:58 20:34 15:58 WBC (4.8-10.8) K/uL RBC (4.2-5.4) M/uL Hgb (12.0-16.0) g/dL Hct (37-47) % MCV (80-100) fL MCH (25-34) pg MCHC (32-36) g/dL RDW Std Deviation (36.4-46.3) fL RDW Coeff of Misha (11.5-14.5) % Plt Count (130-400) K/uL MPV (7.4-10.4) fL Immature Gran % (Auto) % Neut % (Auto) % Lymph % (Auto) % Hickman % (Auto) % Eos % (Auto) % Baso % (Auto) % Immature Gran # (Auto) (0.00-0.02) K/uL Neut # (Auto) (1.4-6.5) K/uL Lymph # (Auto) (1.2-3.4) K/uL Hickman # (Auto) (0.11-0.59) K/uL Eos # (Auto) (0-0.5) K/uL Baso # (Auto) (0-0.2) K/uL Sodium 131 L (136-145) mmol/L Potassium 3.0 L (3.5-5.1) mmol/L Chloride 93 L (98-107) mmol/L Carbon Dioxide 26 (21-32) mmol/L Anion Gap 13.0 H (3-11) BUN 24 H (7-18) mg/dl Creatinine 1.23 H (0.6-1.2) mg/dl Est Cr Clr Drug Dosing 42.6 ml/min Est GFR ( Amer) 50.7 Est GFR (Non-Af Amer) 43.8 BUN/Creatinine Ratio 19.3 (10-20) Glucose 183 H (70-99) mg/dl POC Glucose 214 H 203 H (70-99) mg/dl Calcium 10.3 H (8.5-10.1) mg/dl Magnesium 2.2 (1.8-2.4) mg/dl Total Bilirubin 0.7 (0.2-1) mg/dl AST 19 (15-37) U/L ALT 31 (12-78) U/L Alkaline Phosphatase 94 (45-117) U/L Troponin I < 0.015 (0-0.045) ng/ml Total Protein 7.9 (6.4-8.2) gm/dl Albumin 4.0 (3.4-5.0) gm/dl Globulin 3.9 (2.5-4.0) gm/dl Albumin/Globulin Ratio 1.0 (0.9-2) TSH 0.756 (0.300-4.500) uIu/ml 08/09/19 Range/Units 15:58 WBC 11.78 H (4.8-10.8) K/uL RBC 5.25 (4.2-5.4) M/uL Hgb 15.5 (12.0-16.0) g/dL Hct 44.6 (37-47) % MCV 85.0 (80-100) fL MCH 29.5 (25-34) pg MCHC 34.8 (32-36) g/dL RDW Std Deviation 40.5 (36.4-46.3) fL RDW Coeff of Misha 13.3 (11.5-14.5) % Plt Count 361 (130-400) K/uL MPV 9.6 (7.4-10.4) fL Immature Gran % (Auto) 0.4 % Neut % (Auto) 75.8 % Lymph % (Auto) 16.6 % Hickman % (Auto) 6.5 % Eos % (Auto) 0.3 % Baso % (Auto) 0.4 % Immature Gran # (Auto) 0.05 H (0.00-0.02) K/uL Neut # (Auto) 8.93 H (1.4-6.5) K/uL Lymph # (Auto) 1.95 (1.2-3.4) K/uL Hickman # (Auto) 0.76 H (0.11-0.59) K/uL Eos # (Auto) 0.04 (0-0.5) K/uL Baso # (Auto) 0.05 (0-0.2) K/uL Sodium (136-145) mmol/L Potassium (3.5-5.1) mmol/L Chloride (98-107) mmol/L Carbon Dioxide (21-32) mmol/L Anion Gap (3-11) BUN (7-18) mg/dl Creatinine (0.6-1.2) mg/dl Est Cr Clr Drug Dosing ml/min Est GFR ( Amer) Est GFR (Non-Af Amer) BUN/Creatinine Ratio (10-20) Glucose (70-99) mg/dl POC Glucose (70-99) mg/dl Calcium (8.5-10.1) mg/dl Magnesium (1.8-2.4) mg/dl Total Bilirubin (0.2-1) mg/dl AST (15-37) U/L ALT (12-78) U/L Alkaline Phosphatase (45-117) U/L Troponin I (0-0.045) ng/ml Total Protein (6.4-8.2) gm/dl Albumin (3.4-5.0) gm/dl Globulin (2.5-4.0) gm/dl Albumin/Globulin Ratio (0.9-2) TSH (0.300-4.500) uIu/ml Diagnostic Findings No imaging performed in the ER ECG Additional Comments: ECG #1 with sinus tachycardia, right bundle branch block, QTC greater than 600, with ectopy with PACs ECG #2 performed 2 hours later with sinus tachycardia, right bundle branch block, QTC down to 510, no further ectopy, with questionable lateral T wave changes Code Status & VTE Plan Code Status Full code VTE Prophylaxis Plan VTE Prophylaxis will be ordered: Yes PG Care Time/CCT Total # of Minutes Spent Total Time Spent with Patient: Total time spent is greater than 50% in coordination of care (as documented) at patient's floor/unit and/or counseling patient: Coding Level of Care Code 22285 Initial Inpt Care Lvl 3 Diagnoses Acute metabolic encephalopathy G93.41 Acute dehydration E86.0 Acute hyponatremia E87.1 Hypokalemia E87.6 Prolonged QT interval R94.31 Acute UTI N39.0 Anxiety F41.9 Dementia F03.90 Abdominal pain R10.9 Constipation K59.00 Hypercalcemia E83.52 Liver lesion K76.9 Diabetic peripheral neuropathy associated with type 2 diabetes mellitus E11.42 Sleep apnea G47.30 Morbid obesity E66.01 Mild persistent asthma J45.30 Hypertension I10 Dyslipidemia E78.5 Multiple thyroid nodules E04.2 Depression F32.9 DVT prophylaxis Z29.9
[2019-08-09] MEDS ORDERED: POTASSIUM CHLORIDE 20 MEQ TABCR PO STA (20:33)
[2019-08-09] MEDS ORDERED: GLUCAGON FOR INJ 1 MG VIAL SQ PRN (20:33)
[2019-08-09] MEDS ORDERED: DEXTROSE 50% 50 ML SYRINGE IV PRN (20:33)
[2019-08-09] MEDS ORDERED: CARBOHYDRATES FOR HYPOGLYCEMIA PO PRN (20:33)
[2019-08-09] MEDS ORDERED: MAGNESIUM HYDROXIDE SUSP 30 ML UDC PO PRN (20:33)
[2019-08-09] MEDS ORDERED: GLUCOSE 40% GEL 15 GM TUBE PO PRN (20:33)
[2019-08-09] MEDS ORDERED: GLUCOSE 10 TABS/TUBE PO PRN (20:33)
[2019-08-09] MEDS ORDERED: GADOBUTROL 65ML VIAL IV PRN (21:32)
[2019-08-09] MEDS: METHENAMINE HIPPURATE 1 GM TAB PO SCH (22:01)
[2019-08-09] MEDS: SENNA 8.6 MG TAB PO SCH (22:03)
[2019-08-09] MEDS: DOCUSATE SODIUM 100 MG CAP PO SCH (22:03)
[2019-08-09] MEDS: PANTOprazole 40 MG TAB PO SCH (22:06)
[2019-08-09] MEDS: ATORVASTATIN 40 MG TAB PO SCH (22:06)
[2019-08-09] MEDS: INSULIN ASPART 100 UNITS/ML 3 ML PEN SC SCH (22:07)
[2019-08-09] MEDS: ENOXAPARIN INJ 40 MG/0.4 ML SYR SQ SCH (22:07)
[2019-08-10] MEDS: cefTRIAXone SODIUM 2,000 MG in DEXTROSE 5% 50 ML IV SCH (06:02)
--- NOTE | 2019-08-10 07:17 | Magnetic Resonance Report ---
MRI OF THE BRAIN COMBO CLINICAL HISTORY: Change in mental status. Dizziness. Headache. COMPARISON STUDY: CT of the brain dated 08/03/2019. MRI of the brain dated 03/04/2018. TECHNIQUE: MRI of the brain was performed utilizing various T1 and T2-weighted sequences in the axial , sagittal, and coronal planes. Contrast-enhanced sequences were acquired following the administratio n of 8.8 cc of Gadavist. FINDINGS: Brain parenchyma: There is age-related involutional change noting mild subcortical and periventricula r microangiopathic disease. There is no hemorrhage or mass effect. There is no restricted diffusion t o suggest acute ischemia. No enhancing mass lesion is identified on the postcontrast images. Oropeza-whi te matter differentiation is preserved. No extra-axial fluid collection is seen. The cerebellar tonsi ls are normal in configuration. Ventricles, sulci, and cisterns: Prominent secondary to involutional change. Pituitary and sella: Unremarkable. Intracranial vasculature: Normal flow voids are maintained at the skull base. Orbits: The bony orbits are grossly intact. Orbital contents are normal in appearance. Sinuses and mastoids: Clear. Calvarium: Unremarkable. Cervical cord: Partially visualized cervical spinal cord is normal in morphology and signal intensity . IMPRESSION: No acute intracranial abnormality. ACT 112: Negative or not required by law. Electronically signed by: Manish Lundy M.D. 08/10/2019 7:16 AM
[2019-08-10 07:42] LABS: BUN Creatinine Ratio 21.5 (10-20); Creatinine Clr Calc Pharmacy 52.8 ml/min; Est GFR (Non-African American) 56.9; Magnesium 2.2 mg/dl (1.8-2.4); Potassium 3.6 mmol/L (3.5-5.1)
--- NOTE | 2019-08-10 08:00 | Hospitalist Progress Note ---
Date of Service August 10, 2019 Assessment & Plan (1) Acute metabolic encephalopathy: This patient is a 74-year-old female with a history of HTN, uncontrolled DM 2 with neuropathy, hyperlipidemia, dementia, obesity, and major depressive disorder with anxiety, early cirrhosis with liver mass, and chronic constipation who comes from home where she lives with her intellectually disabled daughter with worsening confusion and inability to take care of herself. Her other daughter, Mer, is the one that brought her to the ER stating that she was very concerned for her mother's safety and that she had been having worsening confusion especially in the last few days, at times staring off into space and not responding to questions. The patient was seen here in the ER on 08/02 for similar complaints but was also stating she had abdominal pain. She had a work- up at that time including a CT of the abdomen/pelvis which was fairly unremarkable, however after discharge, she was found to have a UTI with E. coli growing on the culture. It was unclear if this was a symptomatic UTI or not and therefore it is noted that she would not be treated with antibiotics. She has not had any documented fevers at home. The pt has persistent pain in the RLQ and previous Ct was without oral contrast, since she did have a Hydterectomy years ago it is unclear if appendix remains, will pursue CT Abdomen and pelvis with oral contrast to exclude any issues responsible for her pain, if all are ruled out consider pain from her uti (2) Acute dehydration: Resolved, pt tolerating diet (3) Acute hyponatremia: Likely secondary to dehydration, sodium 130 on admission up to 137 (4) Hypokalemia: replete (5) Prolonged QT interval: QTC was greater than 600 now resolved (6) Acute UTI: With multiple recurrent UTIs, all with the same E. coli organism that is resistant to nitrofurantoin and Bactrim Follows with urology and is on daily nitrofurantoin for prophylaxis which would not prevent this particular organism -Continue methenamine but will hold nitrofurantoin while on ceftriaxone -Continue IV ceftriaxone and switch to p.o. Keflex likely in the next day or 2 when taking p.o. reliably -Follow-up with urology as an outpatient, imaging does not suggest any issues with anatomy of renal system to be harbor of infection (7) Anxiety: Continue home citalopram Worsening lately in the setting of encephalopathy (8) Dementia: Listed as a diagnosis in her chart, supportive care and reorientation (9) Abdominal pain: repeat oral contrast CT (10) Constipation: Had recent anorectal manometry testing which showed type III dyssynergic defecation -Continue Linzess from home if can be brought in if not available here -Increased docusate to twice daily -Added on senna and MiraLAX daily as above -Consider lactulose (11) Hypercalcemia: Very mildly elevated at 10.3 Vitamin D supplementation was recently discontinued as her level is in the 40s No further treatment at this time (12) Liver lesion: Has a known liver lesion and was due for repeat MRI of the liver this coming Thursday Daughter is requesting that this be performed in the hospital-I advised her that this can remain an outpatient test but will be left to the discretion of the rounding day team (13) Diabetic peripheral neuropathy associated with type 2 diabetes mellitus: Hold home metformin -NovoLog sliding scale and replace home Tresiba with Lantus here at any equivalent dose Recent hemoglobin A1c well controlled at 6.1% -Given cognitive impairment, I have great concern that she is able to manage insulin herself at home -Follows with endocrinology (14) Sleep apnea: Noted as a diagnosis in the chart Unclear if she is on CPAP (15) Morbid obesity: BMI 35 Needs weight loss, but difficult with pts memory imparement (16) Mild persistent asthma: Not on any home inhalers for this No acute issues at this time (17) Hypertension: Stable -Holding home Lasix while dehydrated (18) Dyslipidemia: Continue statin, aspirin (19) Multiple thyroid nodules: Followed by endocrinology TSH here is normal (20) Depression: Continue home Celexa (21) DVT prophylaxis: Lovenox SQ, SCDs PT/OT evaluations requested Case management consultation placed She will likely need rehab placement Admission and Anticipated Discharge Date Admission Date: August 09, 2019 Subjective this pt is pleasantly confused, she is complaining of rlq abdominal pain, on exam is without rebound or guarding Review of Systems Review of Systems: Mild distress and fatigue no headache, blurry or double vision no speech or swallowing issues no chest pain, pressure or palpitations no shortness of breath, cough or wheezes c/o RLQ abdominal pain, no nausea or vomiting, no diarrhea or constipation no dysuria, hematuria or frequency no focal joint pain or swelling no back pain, CVA tenderness or radicular pain no bruising, bleeding or rashes no focal signs of weakness or numbness or altered sensation no complaints or anxiety or depression Physical Exam Physical Exam: The patient appeared well nourished but confused and not oriented to time or current condition Vital signs as documented. Head exam is normocephalic atraumatic no scleral icterus Neck is without JVD, thyromegaly, or carotid bruits. Lungs are clear to auscultation, no focal loss of breath sounds Cardiac exam, Rhythm is regular.. No murmurs, rubs or gallops. Abdominal exam reveals normal bowel sounds, soft minor RLQ tenderness Extremities are nonedematous and both pedal pulses are normal. Neurologic exam is alert and oriented x2, no focal loss of strength or sensation Skin is without bruises or rashes Psychologically is with anxiety Results & Data Results & Data ([facility]) Vital Signs (Past 12 Hours) Vital Signs Temp Pulse Pulse Pulse Resp BP BP 08/10/19 07:44 80 08/10/19 07:07 97.3 F L 83 18 129/80 08/10/19 03:24 97.9 F 87 18 124/73 08/09/19 23:54 98.4 F 90 18 142/75 H 08/09/19 22:29 90 08/09/19 20:11 98 H 08/09/19 20:05 98.2 F 99 H 14 162/86 H Pulse Ox 08/10/19 07:44 08/10/19 07:07 96 08/10/19 03:24 92 08/09/19 23:54 95 08/09/19 22:29 08/09/19 20:11 08/09/19 20:05 97 PG Care Time/CCT Total # of Minutes Spent Total Time Spent with Patient: Total time spent is greater than 50% in coordination of care (as documented) at patient's floor/unit and/or counseling patient: Coding Level of Care Code 70385 Subseq Hosp Care Lvl 3 Diagnoses Acute metabolic encephalopathy G93.41 Acute dehydration E86.0 Acute hyponatremia E87.1 Hypokalemia E87.6 Prolonged QT interval R94.31 Acute UTI N39.0 Anxiety F41.9 Dementia F03.90 Abdominal pain R10.9 Constipation K59.00 Hypercalcemia E83.52 Liver lesion K76.9 Diabetic peripheral neuropathy associated with type 2 diabetes mellitus E11.42 Sleep apnea G47.30 Morbid obesity E66.01 Mild persistent asthma J45.30 Hypertension I10 Dyslipidemia E78.5 Multiple thyroid nodules E04.2 Depression F32.9 DVT prophylaxis Z29.9
[2019-08-10] MEDS: DOCUSATE SODIUM 100 MG CAP PO SCH ×2 (08:02→20:39)
[2019-08-10] MEDS: POTASSIUM CHLORIDE 10 MEQ TABCR PO SCH (08:02)
[2019-08-10] MEDS: CITALOPRAM 20 MG TAB PO SCH (08:02)
[2019-08-10] MEDS: POLYETHYLENE (MIRALAX) 17 GM PACK PO SCH (08:03)
[2019-08-10] MEDS: ASPIRIN 81 MG ECTAB PO SCH (08:03)
[2019-08-10] MEDS: PANTOprazole 40 MG TAB PO SCH ×2 (08:03→20:40)
[2019-08-10] MEDS: METHENAMINE HIPPURATE 1 GM TAB PO SCH ×2 (08:03→20:40)
[2019-08-10] MEDS: INSULIN GLARGINE 100 UNIT/ML VIAL SQ SCH (08:04)
[2019-08-10] MEDS: INSULIN ASPART 100 UNITS/ML 3 ML PEN SC SCH ×4 (08:06→20:38)
--- NOTE | 2019-08-10 08:54 | Electrocardiogram Report ---
Test Reason : Blood Pressure : / mmHG Vent. Rate : 110 BPM Atrial Rate : 110 BPM P-R Int : 204 ms QRS Dur : 150 ms QT Int : 486 ms P-R-T Axes : 112 017 005 degrees QTc Int : 657 ms Sinus tachycardia with Premature atrial complexes and runs of PAT Right bundle branch block Abnormal ECG When compared with ECG of 22-JAN-2019 11:02, Premature atrial complexes are now Present QT has lengthened Confirmed by Bridger Longoria ([id number]) on 08/10/2019 8:54:02 AM Referred By: REFERRED SELF Confirmed By:Bridger Longoria
--- NOTE | 2019-08-10 09:15 | Electrocardiogram Report ---
Test Reason : Blood Pressure : / mmHG Vent. Rate : 082 BPM Atrial Rate : 082 BPM P-R Int : 156 ms QRS Dur : 148 ms QT Int : 452 ms P-R-T Axes : 020 -05 015 degrees QTc Int : 528 ms Normal sinus rhythm Right bundle branch block Abnormal ECG When compared with ECG of 09-AUG-2019 17:24, (unconfirmed) No significant change was found Confirmed by Bridger Longoria ([id number]) on 08/10/2019 9:14:52 AM Referred By: REFERRED SELF Confirmed By:Bridger Longoria
--- NOTE | 2019-08-10 13:50 | CT Scan Report ---
ABDOMEN AND PELVIS CT WITH ORAL CONTRAST CT DOSE: 1013.22 mGycm HISTORY: pt with persistent lower right sided pain TECHNIQUE: Multiaxial CT images of the abdomen and pelvis were performed following the use of oral co ntrast. A dose lowering technique was utilized adhering to the principles of ALARA. COMPARISON STUDY: Abdomen and pelvis CT 08/03/2019. FINDINGS: Stable 4 mm nodule within the left lower lobe on image 31. No pneumoperitoneum. No pneumato sis. No suspicious lytic are blastic osseous lesions. Soft tissue density within the subcutaneous loc ations of the right and left lower quadrants persists. This favors granulation tissue from long-stand ing medication injection. Stable 7 mm hypodense lesion within the right hepatic lobe inferiorly. This is technically too small to characterize. Nodular contour to the liver consistent with cirrhosis. Ch olecystectomy. The unenhanced spleen, adrenal glands, and kidneys are within normal limits. No renal or ureteral stones. No hydronephrosis. The bladder is mildly distended. No bladder wall thickening. N ormal caliber abdominal aorta with moderate calcified plaque. No retroperitoneal or mesenteric lympha denopathy. No pelvic lymphadenopathy. The uterus is surgically absent. No bowel wall thickening or ob struction. Small to moderate amount of well-formed stool seen within the colon. Normal appendix. A fe w punctate calcifications within the pancreatic head remain unchanged. IMPRESSION: 1. No change compared to the prior study. 2. No bowel wall thickening or obstruction. 3. Normal appendix. 4. No renal or ureteral stones. No hydronephrosis. 5. Cirrhotic liver. 6. Stable 4 mm nodule within the left lower lobe. Please refer to the chart below for recommended fol low-up. Please refer to below summary of Fleischner criteria recommendations for follow-up of incidental CT n odules (Daniel Cantor, Guidelines for management of small pulmonary nodules detected on CT scans: A sta tement from the Fleischner Society, Radiology 237: [phone].) SOLID NODULES Solitary nodule size: <6 mm * Low risk patients: no follow-up needed * high risk patients: optional CT at 12 months Solitary nodule size: 6-8 mm * Low risk patients: follow-up at 6-12 months, then consider further follow-up at 18-24 months * high risk patients: initial follow-up CT at 6-12 months and then at 18-24 months if no change Solitary nodule size: >8 mm * either low or high risk patients - consider follow-up CT at 3 months, and/or CT-PET, and/or biopsy Multiple nodules size: <6 mm * Low risk patients: no routine follow-up * high risk patients: optional CT at 12 months Multiple nodules size: 6-8 mm * Low risk patients: follow-up at 3-6 months, then consider further follow-up at 18-24 months * high risk patients: follow-up at 3-6 months, then at 18-24 months if no change Multiple nodules size: >8 mm * Low risk patients: follow-up at 3-6 months, then consider further follow-up at 18-24 months * high risk patients: follow-up at 3-6 months, then at 18-24 months if no change Note: newly detected indeterminate nodule in persons 35 years of age or older. * Low risk patients: minimal or absent history of smoking and/or other known risk factors * high risk patients: history of smoking or of other known risk factors (e.g. first degree relative with lung cancer, or exposure to asbestos, radon, uranium) * if a nodule up to 8 mm is partly solid or is ground glass further follow-up is required after 24 m onths to exclude possible slow growing adenocarcinoma (SUYAPA) SUBSOLID NODULES Solitary pure ground-glass nodule * nodule size <6 mm - no CT follow-up required * nodule size >=6 mm - follow-up CT at 6-12 months, then every 2 years until 5 years Solitary part-solid nodule * nodule size <6 mm - no CT follow-up required * nodule size >=6 mm - follow-up CT at 3-6 months. If unchanged, and solid component remains <6 mm, then annual follow-up for 5 years Multiple subsolid nodules * nodule size <6 mm - follow-up CT at 3-6 months, consider further follow-up at 2 and 4 years if sta ble * nodule size >=6 mm - follow-up CT at 3-6 months, subsequent management based on the most suspiciou s nodule(s) ACT 112: Negative or not required by law. Electronically signed by: Aniket Sharma M.D. 08/10/2019 1:49 PM
[2019-08-10] MEDS: MULTIVITAMIN TAB PO SCH (14:27)
[2019-08-10] MEDS ORDERED: LORazepam 0.5 MG/1 ML VIAL IV PRN (15:53)
[2019-08-10] MEDS: ACETAMINOPHEN 325 MG TAB PO PRN (16:52)
[2019-08-10] MEDS: ONDANSETRON INJ 2 MG/ML 2 ML VIAL IV PRN (16:53)
[2019-08-10] MEDS: ATORVASTATIN 40 MG TAB PO SCH (20:39)
[2019-08-10] MEDS: SENNA 8.6 MG TAB PO SCH (20:39)
[2019-08-10] MEDS: ENOXAPARIN INJ 40 MG/0.4 ML SYR SQ SCH (20:39)
[2019-08-11] MEDS: cefTRIAXone SODIUM 2,000 MG in DEXTROSE 5% 50 ML IV SCH (05:18)
[2019-08-11] MEDS: ONDANSETRON INJ 2 MG/ML 2 ML VIAL IV PRN ×3 (05:57→22:07)
[2019-08-11] MEDS: ACETAMINOPHEN 325 MG TAB PO PRN ×2 (05:57→20:58)
[2019-08-11] MEDS: DOCUSATE SODIUM 100 MG CAP PO SCH ×2 (08:47→21:00)
[2019-08-11] MEDS: POTASSIUM CHLORIDE 10 MEQ TABCR PO SCH (08:47)
[2019-08-11] MEDS: METHENAMINE HIPPURATE 1 GM TAB PO SCH ×2 (08:48→20:59)
[2019-08-11] MEDS: LINACLOTIDE 72 MCG CAPSULE PO SCH (08:48)
[2019-08-11] MEDS: POLYETHYLENE (MIRALAX) 17 GM PACK PO SCH (08:48)
[2019-08-11] MEDS: ASPIRIN 81 MG ECTAB PO SCH (08:48)
[2019-08-11] MEDS: PANTOprazole 40 MG TAB PO SCH ×2 (08:48→20:59)
[2019-08-11] MEDS: CITALOPRAM 20 MG TAB PO SCH (08:49)
[2019-08-11] MEDS: INSULIN ASPART 100 UNITS/ML 3 ML PEN SC SCH ×4 (08:52→22:19)
[2019-08-11] MEDS: INSULIN GLARGINE 100 UNIT/ML VIAL SQ SCH (08:53)
[2019-08-11] MEDS: MULTIVITAMIN TAB PO SCH (11:25)
--- NOTE | 2019-08-11 12:30 | Electrocardiogram Report ---
Test Reason : Blood Pressure : / mmHG Vent. Rate : 103 BPM Atrial Rate : 103 BPM P-R Int : 144 ms QRS Dur : 150 ms QT Int : 396 ms P-R-T Axes : 000 016 -12 degrees QTc Int : 518 ms Sinus tachycardia Right bundle branch block T wave abnormality, consider lateral ischemia Abnormal ECG When compared with ECG of 09-AUG-2019 15:45, Premature atrial complexes are no longer Present Confirmed by Bridger Longoria ([id number]) on 08/11/2019 12:29:59 PM Referred By: REFERRED SELF Confirmed By:Bridger Longoria
--- NOTE | 2019-08-11 14:30 | Hospitalist Progress Note ---
Date of Service August 11, 2019 Assessment & Plan (1) Acute metabolic encephalopathy: This patient is a 74-year-old female with a history of HTN, uncontrolled DM 2 with neuropathy, hyperlipidemia, dementia, obesity, and major depressive disorder with anxiety, early cirrhosis with liver mass, and chronic constipation who comes from home where she lives with her intellectually disabled daughter with worsening confusion and inability to take care of herself. Her other daughter, Mer, is the one that brought her to the ER stating that she was very concerned for her mother's safety and that she had been having worsening confusion especially in the last few days, at times staring off into space and not responding to questions. The patient was seen here in the ER on 08/02 for similar complaints but was also stating she had abdominal pain. She had a work- up at that time including a CT of the abdomen/pelvis which was fairly unremarkable, however after discharge, she was found to have a UTI with E. coli growing on the culture. It was unclear if this was a symptomatic UTI or not and therefore it is noted that she would not be treated with antibiotics. She has not had any documented fevers at home. The pt has persistent pain in the RLQ and previous Ct was without oral contrast, since she did have a Hydterectomy years ago it is unclear if appendix remains, CT Abdomen and pelvis with oral contrast 08/10/19 IMPRESSION: 1. No change compared to the prior study. 2. No bowel wall thickening or obstruction. 3. Normal appendix. 4. No renal or ureteral stones. No hydronephrosis. 5. Cirrhotic liver. 6. Stable 4 mm nodule within the left lower lobe. (2) Acute dehydration: Resolved, pt tolerating diet (3) Acute hyponatremia: Likely secondary to dehydration, sodium 130 on admission up to 137 (4) Hypokalemia: replete (5) Prolonged QT interval: QTC was greater than 600 now resolved (6) Acute UTI: With multiple recurrent UTIs, all with the same E. coli organism that is resistant to nitrofurantoin and Bactrim Follows with urology and is on daily nitrofurantoin for prophylaxis which would not prevent this particular organism -Continue methenamine but will hold nitrofurantoin while on ceftriaxone -Continue IV ceftriaxone and switch to p.o. Keflex likely in the next day or 2 when taking p.o. reliably -Follow-up with urology as multiple recurrent uti, all E coli, imaging does not suggest any issues with anatomy of renal system to be harbor of infection (7) Anxiety: Continue home citalopram Worsening lately in the setting of encephalopathy (8) Dementia: Listed as a diagnosis in her chart, supportive care and reorientation (9) Abdominal pain: repeat oral contrast CT (10) Constipation: Had recent anorectal manometry testing which showed type III dyssynergic defecation -Continue Linzess from home if can be brought in if not available here -Increased docusate to twice daily -Added on senna and MiraLAX daily as above (11) Hypercalcemia: Very mildly elevated at 10.3 Vitamin D supplementation was recently discontinued as her level is in the 40s No further treatment at this time (12) Liver lesion: Has a known liver lesion and was due for repeat MRI of the liver this coming Thursday Daughter is requesting that this be performed in the hospital-will have MRI of liver and check AFP, as hepatocellular carcinoma is in differential (13) Diabetic peripheral neuropathy associated with type 2 diabetes mellitus: Hold home metformin -NovoLog sliding scale and replace home Tresiba with Lantus here at any equivalent dose Recent hemoglobin A1c well controlled at 6.1% -Given cognitive impairment, I have great concern that she is able to manage insulin herself at home -Follows with endocrinology (14) Sleep apnea: Noted as a diagnosis in the chart Unclear if she is on CPAP (15) Morbid obesity: BMI 35 Needs weight loss, but difficult with pts memory imparement (16) Mild persistent asthma: Not on any home inhalers for this No acute issues at this time (17) Hypertension: Stable -Holding home Lasix while dehydrated (18) Dyslipidemia: Continue statin, aspirin (19) Multiple thyroid nodules: Followed by endocrinology TSH here is normal (20) Depression: Continue home Celexa (21) DVT prophylaxis: Lovenox SQ, SCDs PT/OT evaluations requested Case management consultation placed She will likely need subacute rehab placement Admission and Anticipated Discharge Date Admission Date: August 09, 2019 Subjective this pt is pleasantly confused, she is complaining of rlq abdominal pain, on exam is without rebound or guarding. she is calling her daughter stating that she is going to Review of Systems Review of Systems: Mild distress and fatigue no headache, blurry or double vision no speech or swallowing issues no chest pain, pressure or palpitations no shortness of breath, cough or wheezes c/o RLQ abdominal pain, no nausea or vomiting, no diarrhea or constipation no dysuria, hematuria or frequency no focal joint pain or swelling no back pain, CVA tenderness or radicular pain no bruising, bleeding or rashes no focal signs of weakness or numbness or altered sensation no complaints or anxiety or depression Physical Exam Physical Exam: The patient appeared well nourished but confused and not oriented to time or current condition Vital signs as documented. Head exam is normocephalic atraumatic no scleral icterus Neck is without JVD, thyromegaly, or carotid bruits. Lungs are clear to auscultation, no focal loss of breath sounds Cardiac exam, Rhythm is regular.. No murmurs, rubs or gallops. Abdominal exam reveals normal bowel sounds, soft minor RLQ tenderness Extremities are nonedematous and both pedal pulses are normal. Neurologic exam is alert and oriented x2, no focal loss of strength or sensation Skin is without bruises or rashes Psychologically is with anxiety Results & Data Results & Data ([facility]) Vital Signs (Past 12 Hours) Vital Signs Temp Pulse Pulse Resp BP BP Pulse Ox 08/11/19 11:33 97.5 F L 82 18 162/85 H 93 08/11/19 10:00 77 08/11/19 07:23 97.9 F 72 18 148/60 H 96 08/11/19 04:39 98.1 F 74 18 167/86 H 92 PG Care Time/CCT Total # of Minutes Spent Total Time Spent with Patient: Total time spent is greater than 50% in coordination of care (as documented) at patient's floor/unit and/or counseling patient: Coding Level of Care Code 96374 Subseq Hosp Care Lvl 3 Diagnoses Acute metabolic encephalopathy G93.41 Acute dehydration E86.0 Acute hyponatremia E87.1 Hypokalemia E87.6 Prolonged QT interval R94.31 Acute UTI N39.0 Anxiety F41.9 Dementia F03.90 Abdominal pain R10.9 Constipation K59.00 Hypercalcemia E83.52 Liver lesion K76.9 Diabetic peripheral neuropathy associated with type 2 diabetes mellitus E11.42 Sleep apnea G47.30 Morbid obesity E66.01 Mild persistent asthma J45.30 Hypertension I10 Dyslipidemia E78.5 Multiple thyroid nodules E04.2 Depression F32.9 DVT prophylaxis Z29.9
--- NOTE | 2019-08-11 14:35 | Urology Consultation ---
Date of Consultation August 11, 2019 Assessment & Plan (1) UTI (urinary tract infection): Assessment Recurrent urinary tract infections CT was negative in the urinary tracts Recommend checking a postvoid residual if high she may need to have a catheter placed I do not believe she would be capable of doing CIC Would treat the UTI with 10 days of an antibiotic the organisms are sensitive to We do a cystoscopic exam to complete the work-up this can be done as an outpatient Would consider suppressive antibiotics or bladder antiseptics such as methenamine No urologic intervention needed at this time reconsult if needed History of Present Illness Attending Physician: Juan Mendoza MD History of Present Illness Patient is a 74-year-old white female who we are consulted on for recurrent UTIs. Apparently she has had multiple urinary tract infections over the last year. Was admitted with acute metabolic encephalopathy thought to be secondary to a bladder infection. She is very difficult to get any history from. She tells me she is able to urinate okay although sometimes has to strain to finish urinating. She denies any suprapubic pain currently. Main complaint today is sort of diffuse abdominal pain which she blames on her liver. The majority of her cultures which were positive were all E. coli. Most recent positive urine culture was from August 02 and it was also E. coli She has had a CT scan which I reviewed kidneys appear normal there is no stones there is no hydro-nephrosis. Denies any flank pain Allergies Allergy/AdvReac Type Severity Reaction Status Date / Time No Known Allergies Allergy Verified 05/18/19 08:13 Home Medications Home Medications Medication Instructions Recorded Confirmed Type potassium chloride 10 mEq 10 meq PO QAM #90 tab 07/22/18 08/09/19 History tablet,extended release citalopram 20 mg tablet 20 mg PO QAM 10/04/18 08/09/19 History aspirin 81 mg tablet,delayed 81 mg PO QAM 10/10/18 08/09/19 History release multivitamin 1 tab PO QDL 10/10/18 08/09/19 History atorvastatin 40 mg tablet 40 mg PO HS #90 tab 11/10/18 08/09/19 Rx furosemide 40 mg tablet 40 mg PO QAM #90 tab 11/12/18 08/09/19 Rx OneTouch Ultra Blue Test Strip #300 ea NS 11/18/18 08/09/19 Rx Linzess 72 mcg PO QAM 12/30/18 08/09/19 History Tresiba FlexTouch U-200 68 units SUBCUT QAM 12/30/18 08/10/19 History nystatin 100,000 unit/gram topical 1 appln TOP TID #30 gm 01/03/19 08/09/19 Rx powder cholecalciferol (vitamin D3) 25 1,000 unit PO Q OTHER DAY tab 02/10/19 08/09/19 History mcg (1,000 unit) tablet insulin aspart U-100 100 unit/mL See Rx Instructions SUBCUT BID 02/10/19 08/09/19 History subcutaneous solution pen needle, diabetic 31 gauge x #400 ea 02/11/19 08/09/19 Rx 3/16" metformin 1,000 mg tablet 1,000 mg PO BID #60 tab 04/05/19 08/09/19 Rx docusate sodium 100 mg capsule 100 mg PO QAM #30 cap 05/06/19 08/09/19 Rx fluticasone propionate 50 2 sprays INTNAS DAILY PRN #18.2 ml 07/01/19 08/09/19 Rx mcg/actuation nasal spray,suspension insulin syringe-needle U-100 1 mL #200 ea 07/06/19 08/09/19 Rx 31 gauge x 5/16" pantoprazole 40 mg tablet,delayed 40 mg PO BID #180 tab 07/07/19 08/09/19 Rx release trospium 20 mg tablet 20 mg PO BID #180 tab 07/25/19 08/09/19 Rx meclizine 25 mg tablet 25 mg PO TID PRN #60 tab 08/02/19 08/09/19 Rx methenamine hippurate 1 g PO BID 08/09/19 08/09/19 History nitrofurantoin macrocrystal 50 mg PO DAILY 08/09/19 08/09/19 History Patient History Medical History Allergic rhinitis (Resolved) Anxiety (Chronic) Constipation Dementia Depression (Chronic) Diabetes mellitus type 2, uncontrolled (Chronic) Diabetic peripheral neuropathy associated with type 2 diabetes mellitus (Chronic) Dyslipidemia (Chronic) Gastroparesis (Chronic) History of orthostatic hypotension (Resolved) Hypercalcemia (Acute) Hypertension (Chronic) Impairment of cognitive function (Chronic) Laryngopharyngeal reflux (Chronic) Liver lesion 1.1 cm right hepatic dome lesion in the setting of cirrhosis appearance on MRI 02/2019, possible hepatocellular CA Macular degeneration (Chronic) Migraines Mild persistent asthma (Chronic) Morbid obesity (Chronic) Multiple thyroid nodules (Chronic) Recurrent UTI Sleep apnea (Chronic) Synovial cyst of popliteal space (Deleted) Urge incontinence of urine (Chronic) Vertigo (Resolved) Vitamin B12 deficiency (Chronic) Vitamin D deficiency (Chronic) Surgical History History of cholecystectomy (Resolved) History of colonoscopy History of tonsillectomy (Resolved) History of tooth extraction (Resolved) all teeth History of total hysterectomy with bilateral salpingo-oophorectomy (BSO) (Resolved) Family History Daughter Family history of reaction to anesthesia vomiting Brother Family history of diabetes mellitus Sister Family history of diabetes mellitus Mother Family history of diabetes mellitus Hypertension Grandmother (Maternal) Family history of diabetes mellitus Heart disease Aunt Throat cancer Father Family history of diabetes mellitus Other Breast cancer Denies family history of Ovarian cancer Colorectal cancer Social History Preferred Language: Lao Communication Ability: Impaired Visual Impairment: Limited Hearing Ability: Normal Snath Handle Assembler Required: No Beliefs That Will Affect Care: None marital status: / Current Living Situation: Family Current Living Situation Comment: at home with daughter current occupational status: retired Feels Safe at Home: Yes and No Is there a partner from a previous relationship who is making you feel unsafe now?: No Smoking Status: Unknown if ever smoked Hx Alcohol Use: No Hx Substance Use: No Physical Activity Frequency: Does not Exercise Seatbelt Use: always Sunscreen Use: Yes Review of Systems Review of Systems: Review of systems was reviewed from her admitting history and physical Physical Exam Physical Exam: Well-developed well-nourished white female in no acute distress Neurologically she appears somewhat confused today Abdomen is soft mildly tender in the right lower quadrant bladder is not palpable Results & Data Vital Signs (Past 12 Hours) Vital Signs Temp Pulse Pulse Resp BP BP Pulse Ox 08/11/19 11:33 36.4 C L 82 18 162/85 H 93 08/11/19 10:00 77 08/11/19 07:23 36.6 C 72 18 148/60 H 96 08/11/19 04:39 36.7 C 74 18 167/86 H 92 PG Care Time/CCT Total # of Minutes Spent Total Time Spent with Patient: Total time spent is greater than 50% in coordination of care (as documented) at patient's floor/unit and/or counseling patient: Coding Level of Care Code 58819 Inpt Consult Level 2 Diagnoses UTI (urinary tract infection) N39.0
[2019-08-11] MEDS ORDERED: LORazepam 0.5 MG TAB PO PRN (15:15)
[2019-08-11] MEDS: ENOXAPARIN INJ 40 MG/0.4 ML SYR SQ SCH (20:59)
[2019-08-11] MEDS: SENNA 8.6 MG TAB PO SCH (20:59)
[2019-08-11] MEDS: ATORVASTATIN 40 MG TAB PO SCH (20:59)
[2019-08-11] MEDS ORDERED: GADOXETATE DISODIUM IV PRN (22:54)
[2019-08-12] MEDS: cefTRIAXone SODIUM 2,000 MG in DEXTROSE 5% 50 ML IV SCH (05:08)
--- NOTE | 2019-08-12 07:25 | Magnetic Resonance Report ---
MR abdomen wo/w con CLINICAL HISTORY: Hepatic nodule. COMPARISON STUDY: 02/16/2019. TECHNIQUE: MRI of the abdomen is performed transverse T1 and T2-weighted sequences in the axial and c oronal planes. Contrast enhanced sequences were acquired following the IV administration of . FINDINGS: Lower chest: No pleural effusion is identified. The heart is normal in size. Liver: Liver is unchanged in appearance. The mildly hypervascular nodule superior aspect right hepati c lobe is unchanged compared to the prior study. Currently measures 1.1 cm and is unaltered in the pr ior study. There is a small peripheral right hepatic lobe cyst at its inferior aspect also unchanged. Remainder the study shows the kidneys to be unremarkable. There is a small left renal cyst unchanged. Bowel pattern is nonobstructive. Gallbladder: Unremarkable. Spleen: Normal in size and signal intensity. Pancreas: Unremarkable. Adrenal glands: Unremarkable. Kidneys: The kidneys are normal in size and without hydronephrosis. The kidneys enhance and excrete s ymmetrically. Bowel: Visualized portions of the small bowel and colon show no evidence of obstruction. Peritoneum: There is no abdominal ascites. Lymphadenopathy: None. Skeletal structures: Visualized skeletal structures times are normal marrow signal intensity. IMPRESSION: 1. Unchanged evaluation of the abdomen compared to the prior study. 2. The 1.1 cm indeterminate nodule right superior hepatic lobe is unaltered. 3. No evidence for new interval or progressive process. 4. Mild cirrhotic change also unchanged. 5. A 6-9 month follow-up is suggested. ACT 112: Negative or not required by law. The above report was generated using voice recognition software. It may contain grammatical, syntax or spelling errors. Electronically signed by: Oni Valle M.D. 08/12/2019 7:23 AM
--- NOTE | 2019-08-12 07:55 | Hospitalist Progress Note ---
Date of Service August 12, 2019 Assessment & Plan (1) Acute metabolic encephalopathy: This patient is a 74-year-old female with a history of HTN, uncontrolled DM 2 with neuropathy, hyperlipidemia, dementia, obesity, and major depressive disorder with anxiety, early cirrhosis with liver mass, and chronic constipation who comes from home where she lives with her intellectually disabled daughter with worsening confusion and inability to take care of herself. Her other daughter, Mer, is the one that brought her to the ER stating that she was very concerned for her mother's safety and that she had been having worsening confusion especially in the last few days, at times staring off into space and not responding to questions. The patient was seen here in the ER on 08/02 for similar complaints but was also stating she had abdominal pain. She had a work- up at that time including a CT of the abdomen/pelvis which was fairly unremarkable, however after discharge, she was found to have a UTI with E. coli growing on the culture. It was unclear if this was a symptomatic UTI or not and therefore it is noted that she would not be treated with antibiotics. She has not had any documented fevers at home. The pt has persistent pain in the RLQ and previous Ct was without oral contrast, since she did have a Hydterectomy years ago it is unclear if appendix remains, CT Abdomen and pelvis with oral contrast 08/10/19 IMPRESSION: 1. No change compared to the prior study. 2. No bowel wall thickening or obstruction. 3. Normal appendix. 4. No renal or ureteral stones. No hydronephrosis. 5. Cirrhotic liver. 6. Stable 4 mm nodule within the left lower lobe. MRI abdomen 08/12/19 IMPRESSION: 1. Unchanged evaluation of the abdomen compared to the prior study. 2. The 1.1 cm indeterminate nodule right superior hepatic lobe is unaltered. 3. No evidence for new interval or progressive process. 4. Mild cirrhotic change also unchanged. 5. A 6-9 month follow-up is suggested. (2) Acute dehydration: Resolved, pt tolerating diet (3) Acute hyponatremia: Likely secondary to dehydration, sodium 130 on admission up to 137 (4) Hypokalemia: replete (5) Prolonged QT interval: QTC was greater than 600 now resolved (6) Acute UTI: With multiple recurrent UTIs, all with the same E. coli organism that is resistant to nitrofurantoin and Bactrim Follows with urology and is on daily nitrofurantoin for prophylaxis which would not prevent this particular organism -Continue methenamine but will hold nitrofurantoin while on ceftriaxone -Continue IV ceftriaxone and switch to p.o. Keflex likely in the next day or 2 when taking p.o. reliably -Follow-up with urology as multiple recurrent uti, all E coli, imaging does not suggest any issues with anatomy of renal system to be harbor of infection (7) Anxiety: Continue home citalopram Worsening lately in the setting of encephalopathy (8) Dementia: Listed as a diagnosis in her chart, supportive care and reorientation (9) Abdominal pain: repeat oral contrast CT (10) Constipation: Had recent anorectal manometry testing which showed type III dyssynergic defecation -Continue Linzess from home if can be brought in if not available here -Increased docusate to twice daily -Added on senna and MiraLAX daily as above (11) Hypercalcemia: Very mildly elevated at 10.3 Vitamin D supplementation was recently discontinued as her level is in the 40s No further treatment at this time (12) Liver lesion: Has a known liver lesion and was due for repeat MRI of the liver this coming Thursday Daughter is requesting that this be performed in the hospital-will have MRI of liver and check AFP, as hepatocellular carcinoma is in differential (13) Diabetic peripheral neuropathy associated with type 2 diabetes mellitus: Hold home metformin -NovoLog sliding scale and replace home Tresiba with Lantus here at any equivalent dose Recent hemoglobin A1c well controlled at 6.1% -Given cognitive impairment, I have great concern that she is able to manage insulin herself at home -Follows with endocrinology (14) Sleep apnea: Noted as a diagnosis in the chart Unclear if she is on CPAP (15) Morbid obesity: BMI 35 Needs weight loss, but difficult with pts memory imparement (16) Mild persistent asthma: Not on any home inhalers for this No acute issues at this time (17) Hypertension: Stable -Holding home Lasix while dehydrated (18) Dyslipidemia: Continue statin, aspirin (19) Multiple thyroid nodules: Followed by endocrinology TSH here is normal (20) Depression: Continue home Celexa (21) DVT prophylaxis: Lovenox SQ, SCDs PT/OT evaluations requested Case management consultation placed She will likely need subacute rehab placement Admission and Anticipated Discharge Date Admission Date: August 09, 2019 Results & Data Results & Data ([facility]) Vital Signs (Past 12 Hours) Vital Signs Temp Pulse Pulse Resp BP BP Pulse Ox 08/12/19 07:26 78 08/12/19 07:17 98.2 F 73 18 146/74 H 93 08/12/19 03:12 98.6 F 72 18 128/69 91 PG Care Time/CCT Total # of Minutes Spent Total Time Spent with Patient: Total time spent is greater than 50% in coordination of care (as documented) at patient's floor/unit and/or counseling patient: Coding Diagnoses Acute metabolic encephalopathy G93.41 Acute dehydration E86.0 Acute hyponatremia E87.1 Hypokalemia E87.6 Prolonged QT interval R94.31 Acute UTI N39.0 Anxiety F41.9 Dementia F03.90 Abdominal pain R10.9 Constipation K59.00 Hypercalcemia E83.52 Liver lesion K76.9 Diabetic peripheral neuropathy associated with type 2 diabetes mellitus E11.42 Sleep apnea G47.30 Morbid obesity E66.01 Mild persistent asthma J45.30 Hypertension I10 Dyslipidemia E78.5 Multiple thyroid nodules E04.2 Depression F32.9 DVT prophylaxis Z29.9
[2019-08-12] MEDS: DOCUSATE SODIUM 100 MG CAP PO SCH (08:19)
[2019-08-12] MEDS: LINACLOTIDE 72 MCG CAPSULE PO SCH (08:19)
[2019-08-12] MEDS: METHENAMINE HIPPURATE 1 GM TAB PO SCH (08:19)
[2019-08-12] MEDS: ASPIRIN 81 MG ECTAB PO SCH (08:20)
[2019-08-12] MEDS: PANTOprazole 40 MG TAB PO SCH (08:20)
[2019-08-12] MEDS: CITALOPRAM 20 MG TAB PO SCH (08:20)
[2019-08-12] MEDS: POTASSIUM CHLORIDE 10 MEQ TABCR PO SCH (08:20)
[2019-08-12] MEDS: POLYETHYLENE (MIRALAX) 17 GM PACK PO SCH (08:20)
[2019-08-12] MEDS: INSULIN GLARGINE 100 UNIT/ML VIAL SQ SCH (08:24)
[2019-08-12] MEDS: INSULIN ASPART 100 UNITS/ML 3 ML PEN SC SCH ×2 (08:27→12:33)
[2019-08-12] MEDS: MULTIVITAMIN TAB PO SCH (12:34)
--- NOTE | 2019-08-12 15:24 | Discharge Summary ---
Date of Service August 12, 2019 Admission HPI Per Admitting Provider This patient is a 74-year-old female with a history of HTN, uncontrolled DM 2 with neuropathy, hyperlipidemia, dementia, obesity, and major depressive disorder with anxiety, early cirrhosis with liver mass, and chronic constipation who comes from home where she lives with her intellectually disabled daughter with worsening confusion and inability to take care of herself. Her other daughter, Mer, is the one that brought her to the ER stating that she was very concerned for her mother's safety and that she had been having worsening confusion especially in the last few days, at times staring off into space and not responding to questions. The patient was seen here in the ER on 08/02 for similar complaints but was also stating she had abdominal pain. She had a work- up at that time including a CT of the abdomen/pelvis which was fairly unremarkable, however after discharge, she was found to have a UTI with E. coli growing on the culture. It was unclear if this was a symptomatic UTI or not and therefore it is noted that she would not be treated with antibiotics. She has not had any documented fevers at home. The patient tells me that she does have pain and points to the suprapubic region and also pain in the rectum. She cannot recall the last time she had a bowel movement. Her daughter tells me on the phone that she has not had a bowel movement in at least 2 days. The patient tells me that she has not felt like eating or drinking much and her chemistry panel here is consistent with dehydration. Her daughter is also concerned that she is either not taking her medications at all or is taking too many of them. Review of the chart shows that there have been multiple recent phone calls in to the driver/merchandiser for difficulties with labile glucose control, as well as for her worsening confusion. Suggestion was made by her PCP for penitentiary placement. In the ER, she was given a total of 1 L of normal saline and 1 dose of IV Rocephin She will be admitted for acute metabolic encephalopathy, suspected UTI, for further work-up and likely rehab placement. Principal Diagnosis recurrent e coli uti, 8 similar infections in 12 months, urology is considering outpt cysto Dementia, progressive, will need formal testing with psyche or neurlogy Discharge Exam The patient appeared well she is slightly anxious she is focused on her abdomen despite being informed that her MRI and other imaging looks good Vital signs as documented. Lungs are clear to auscultation and appear unlabored Cardiac exam, Rhythm is regular.. No murmurs, rubs or gallops. Abdominal exam reveals normal bowel sounds, soft non tender, no masses Extremities are nonedematous and both pedal pulses are normal. Neurologic exam is alert and oriented x2, no focal loss of strength or sensation Skin is without bruises or rashes Psychologically is with significant anxiety Discharge Data Allergies Allergy/AdvReac Type Severity Reaction Status Date / Time No Known Allergies Allergy Verified 05/18/19 08:13 Consultations 08/09/19 17:18 ED Decision to Admit Stat 08/09/19 20:33 Consult Case Management - Discharge Planning Routine 08/10/19 15:52 Consult Urology Routine Ordered Studies 08/09/19 20:33 MR brain wo/w con Routine 08/10/19 11:30 CT abd pelvis oral con only Routine 08/11/19 14:37 MR abdomen wo/w con Routine Hospital Course (1) Acute metabolic encephalopathy: This patient is a 74-year-old female with a history of HTN, uncontrolled DM 2 with neuropathy, hyperlipidemia, dementia, obesity, and major depressive disorder with anxiety, early cirrhosis with liver mass, and chronic constipation who comes from home where she lives with her intellectually disabled daughter with worsening confusion and inability to take care of herself. Her other daughter, Mer, is the one that brought her to the ER stating that she was very concerned for her mother's safety and that she had been having worsening confusion especially in the last few days, at times staring off into space and not responding to questions. The patient was seen here in the ER on 08/02 for similar complaints but was also stating she had abdominal pain. She had a work- up at that time including a CT of the abdomen/pelvis which was fairly unremarkable, however after discharge, she was found to have a UTI with E. coli growing on the culture. this pt has had multiple E coli uti in the last 12 months The pt did complain of pa in in RLQ but imaging is negative for issues as below CT Abdomen and pelvis with oral contrast 08/10/19 IMPRESSION: 1. No change compared to the prior study. 2. No bowel wall thickening or obstruction. 3. Normal appendix. 4. No renal or ureteral stones. No hydronephrosis. 5. Cirrhotic liver. 6. Stable 4 mm nodule within the left lower lobe. MRI abdomen 08/12/19 IMPRESSION:( this was to follow up liver lesion) 1. Unchanged evaluation of the abdomen compared to the prior study. 2. The 1.1 cm indeterminate nodule right superior hepatic lobe is unaltered. 3. No evidence for new interval or progressive process. 4. Mild cirrhotic change also unchanged. 5. A 6-9 month follow-up is suggested. (2) Acute dehydration: Resolved, pt tolerating diet (3) Acute hyponatremia: Likely secondary to dehydration, sodium 130 on admission up to 137 (4) Hypokalemia: replete (5) Prolonged QT interval: QTC was greater than 600 now resolved (6) Acute UTI: With multiple recurrent UTIs, all with the same E. coli organism that is resistant to nitrofurantoin and Bactrim Follows with urology and is on daily nitrofurantoin for prophylaxis which would not prevent this particular organism -Continue methenamine but will hold nitrofurantoin while on ceftriaxone -Continue IV ceftriaxone and switch to p.o. cefdinir 300 mg bid -Follow-up with urology as multiple recurrent uti, all E coli, imaging does not suggest any issues with anatomy of renal system to be harbor of infection (7) Anxiety: Continue home citalopram Worsening lately in the setting of encephalopathy (8) Dementia: Listed as a diagnosis in her chart, supportive care and reorientation, dementia has been listed in multiple times with family is concerned she may need formal testing with psychology or neurology and consider institution of medications (9) Abdominal pain: repeat oral contrast CT (10) Constipation: Had recent anorectal manometry testing which showed type III dyssynergic defecation -Continue Linzess from home if can be brought in if not available here -Docusate daily with good surveillance of stool production - (11) Hypercalcemia: Very mildly elevated at 10.3 Vitamin D supplementation was recently discontinued as her level is in the 40s No further treatment at this time (12) Liver lesion: Has a known liver lesion and was due for repeat MRI of the liver this coming Thursday Daughter is requesting that this be performed in the hospital- MRI scan did not show any changes of size or growth of this lesion. Alpha- fetoprotein is sent and is pending at time of discharge (13) Diabetic peripheral neuropathy associated with type 2 diabetes mellitus: Continue to hold home metformin -NovoLog sliding scale and replace home Tresiba with Lantus here at any equivalent dose Recent hemoglobin A1c well controlled at 6.1% -Given cognitive impairment, I have great concern that she is able to manage insulin herself at home -Follows with endocrinology (14) Sleep apnea: Noted as a diagnosis in the chart Unclear if she is on CPAP (15) Morbid obesity: BMI 35 Needs weight loss, but difficult with pts memory imparement (16) Mild persistent asthma: Not on any home inhalers for this No acute issues at this time (17) Hypertension: Stable -Holding home Lasix while dehydrated (18) Dyslipidemia: Continue statin, aspirin (19) Multiple thyroid nodules: Followed by endocrinology TSH here is normal (20) Depression: Continue home Celexa Total Time Total Time Spent Total Time Spent (In Minutes): It required greater than 30 minutes to prepare this patient for discharge Discharge Plan Discharge Items Patient Disposition: Transfer Custodial Fac Reason For Visit: CONFUSION,HYPOKALEMIA Discharge Diagnosis: recurrent uti poa dementia anxiety Condition on Discharge: Fair Activity: Per Instructions section Activity Comment: per PT and ot Non-emergency contact: Primary Care Provider and Urologist Call non-emergency contact if: you have any medication questions and your symptoms worsen Follow-up/Referrals: Emeterio Beck III, MD [Primary Care Provider] - Diet: Regular Addtl Attending Provider Instructions: please complete antibiotics then follow up with urology Pending Studies at Discharge: No Stand-Alone Forms: My [facility] Skilled Items Patient informed of condition?: Yes DNR: No Discharge Level of Care: Skilled Communicable Disease: No Discharge Prognosis: Stable Lines: None Urinary Catheter: No Medications and DC Order Prescriptions: New cefdinir 300 mg capsule 300 mg PO BID 5 Days Qty: 10 RF: 0 melatonin 3 mg capsule 3 mg PO HS Qty: 30 RF: 0 Continued citalopram 20 mg tablet 20 mg PO QAM RF: 0 atorvastatin 40 mg tablet 40 mg PO HS Qty: 90 RF: 3 furosemide 40 mg tablet 40 mg PO QAM Qty: 90 RF: 3 docusate sodium 100 mg capsule 100 mg PO QAM Qty: 30 RF: 5 fluticasone propionate [Flonase Allergy Relief] 50 mcg/actuation spray,suspension 2 sprays INTNAS DAILY PRN (Reason: allergy symptoms) Qty: 18.2 RF: 3 pantoprazole 40 mg tablet,delayed release (DR/EC) 40 mg PO BID Qty: 180 RF: 3 trospium 20 mg tablet 20 mg PO BID Qty: 180 RF: 1 meclizine 25 mg tablet 25 mg PO TID PRN (Reason: dizziness) Qty: 60 RF: 5 potassium chloride 10 mEq tablet extended release 10 meq PO QAM Qty: 90 RF: 0 nystatin 100,000 unit/gram powder 1 appln TOP TID Qty: 30 RF: 0 aspirin 81 mg tablet,delayed release (DR/EC) 81 mg PO QAM RF: 0 multivitamin tablet 1 tab PO QDL RF: 0 methenamine hippurate 1 gram tablet 1 g PO BID RF: 0 Linzess 72 mcg Capsule 72 mcg PO QAM RF: 0 Tresiba FlexTouch U-200 200 unit/mL (3 mL) insulin pen 68 units SUBCUT QAM RF: 0 cholecalciferol (vitamin D3) [Vitamin D3] 25 mcg (1,000 unit) tablet 1,000 unit PO Q OTHER DAY RF: 0 Novolog U-100 Insulin aspart 100 unit/mL solution See Rx Instructions SUBCUT BID RF: 0 Discontinued metformin 1,000 mg tablet 1,000 mg PO BID Qty: 60 RF: 5 nitrofurantoin macrocrystal 50 mg capsule 50 mg PO DAILY RF: 0 No Action (DME) OneTouch Ultra Blue Test Strip strip See Dose Instructions .ROUTE .MEDSUPPLY Qty: 300 RF: 3 (DME) pen needle, diabetic [BD Ultra-Fine Mini Pen Needle] 31 gauge x 3/16" needle See Dose Instructions .ROUTE .MEDSUPPLY Qty: 400 RF: 3 (DME) insulin syringe-needle U-100 [BD Insulin Syringe Ultra-Fine] 1 mL 31 gauge x 5/16 syringe See Rx Instructions .ROUTE .MEDSUPPLY Qty: 200 RF: 3 Discharge Orders: Discharge Order (Routine); Ordered 08/12/19 Ordered By: Juan Mendoza Admission Data Admit Date/Time: 08/09/19 19:04 Attending Provider: Juan Mendoza Admit Provider: Bridgette Guzman Primary Care Provider: Emeterio Beck III Other Providers: Bridgette Guzman ; Berne,Vowinckel ; Alberto Pinon Other Interventions: Discharge Summary Assessment (RN) Last Done: 08/12/19 15:11 Coding Level of Care Code D/C Day Management >30 mins Diagnoses Acute metabolic encephalopathy G93.41 Acute dehydration E86.0 Acute hyponatremia E87.1 Hypokalemia E87.6 Prolonged QT interval R94.31 Acute UTI N39.0 Anxiety F41.9 Dementia F03.90 Abdominal pain R10.9 Constipation K59.00 Hypercalcemia E83.52 Liver lesion K76.9 Diabetic peripheral neuropathy associated with type 2 diabetes mellitus E11.42 Sleep apnea G47.30 Morbid obesity E66.01 Mild persistent asthma J45.30 Hypertension I10 Dyslipidemia E78.5 Multiple thyroid nodules E04.2 Depression F32.9
--- NOTE | 2019-08-13 06:43 | Electrocardiogram Report ---
Test Reason : Blood Pressure : / mmHG Vent. Rate : 073 BPM Atrial Rate : 073 BPM P-R Int : 152 ms QRS Dur : 144 ms QT Int : 466 ms P-R-T Axes : 000 -06 007 degrees QTc Int : 513 ms Normal sinus rhythm Right bundle branch block Abnormal ECG When compared with ECG of 10-AUG-2019 07:01, No significant change was found Confirmed by Bridger Longoria ([id number]) on 08/13/2019 6:42:32 AM Referred By: REFERRED SELF Confirmed By:Bridger Longoria
== END 2019-08-12 15:25 | DRG 689 ==
LOC: ED 13:45 → 2N 19:04 → SUATTDRO 19:04 → 2N 19:54